=== PATIENT | female | born 1980 | race Caucasian/White ===

== ENCOUNTER 2016-12-03 12:18 | Inpatient (IN) | payer OTHER ==
[~2016-12-03] VITALS: Ht 162.6 cm; Wt 71.5 kg
[~2016-12-03 12:18] MED LIST: AMOX1TAB61 PO; AZIT250T PO; CIPR500T94 PO; CITA10TA4 PO; CITA40TA5 PO; DESO1TAB5 PO; DIVA500T2 PO; DIVA500T4 PO; METO5TAB PO; MULT-276 PO; ONDA4TAB10 SL; ONDA4TAB7 PO; PRED20TA PO; PROAIR HFA8.5 GM INH; PROM118S2 PO; ZOLP10TA PO
[2016-12-03 13:05] LABS: BILIRUBIN,URINE NEGATIVE (NEG); GLUCOSE,URINE NEGATIVE (NEG); NITRITE,URINE NEGATIVE (NEG); PH,URINE 6.5; PROTEIN,URINE 30 mg/dL (NEG-TRACE)
--- NOTE | 2016-12-03 13:14 | PHYS DOC ---
Past Medical History Past Medical History: Anxiety, Depression, Hypotension, Other Additional Past Medical Histor: CROHNS Past Surgical History: Appendectomy, Cholecystectomy, Tonsillectomy, Other Additional Past Surgical Histo: EGD; colonoscopy, Abdominal bypass, sinus Alcohol Use: Occasionally Drug Use: None Social History Narrative: DENIES MARIJUANA USE AT THIS TIME Adult General Chief Complaint Chief Complaint: FLANK PAIN HPI HPI 36-year-old female presents with significant left flank pain but also mild right flank pain that is worsened over the last 2-3 days. Patient states she is now urinating blood and has some dysuria type symptoms. She states fever and chills and had an episode of sweating last evening. She rates her pain very severe as a 10 out of 10 and worse in the left flank and also radiating to her left groin. Patient does state she has history of renal stones. She states 3-4 weeks ago she did have influenza but was appropriately treated with Tamiflu as well as some antibiotic therapy. She states her cough is still ongoing but is significantly improved. She denies any chest pain or shortness of breath. She reports nausea but no vomiting. Review of Systems Review of Systems Constitutional: Has fever, denies chills [] Eyes: Denies change in visual acuity, redness, or eye pain [] HENT: Denies nasal congestion or sore throat [] Respiratory: Denies cough or shortness of breath [] Cardiovascular: No additional information not addressed in HPI [] GI: Has abdominal pain, has nausea, has vomiting, denies bloody stools or diarrhea [] : Has dysuria, has hematuria [] Musculoskeletal: Denies back pain or joint pain [] Integument: Denies rash or skin lesions [] Neurologic: Denies headache, focal weakness or sensory changes [] Endocrine: Denies polyuria or polydipsia [] Current Medications Current Medications Current Medications Medications (Trade) Dose Ordered Sig/Adrianna Start Time Stop Time Status Last Admin Dose Admin Ceftriaxone Sodium 50 ml @ 100 mls/hr 1X ONCE 12/03/16 14:30 12/03/16 14:59 DC 12/03/16 14:12 100 MLS/HR Hydromorphone HCl (Dilaudid) 0.5 mg 1X ONCE 12/03/16 15:15 12/03/16 15:16 DC 12/03/16 15:19 0.5 MG Ondansetron HCl (Zofran) 4 mg 1X ONCE 12/03/16 13:15 12/03/16 13:16 DC 12/03/16 13:16 4 MG Ondansetron HCl 4 mg 4 mg 1X ONCE 12/03/16 14:15 12/03/16 14:16 DC 12/03/16 14:04 4 MG Promethazine HCl/ Sodium Chloride (Phenergan/Iv Sodium Chloride 0.9% 50ml) 50.5 ml @ 151.5 mls/ hr PRN Q6HRS PRN 12/03/16 15:00 12/03/16 15:20 151.5 MLS/HR Sodium Chloride (Iv Sodium Chloride 0.9% 1000ml Bag) 1,000 ml @ 1,000 mls/hr 1X ONCE 12/03/16 13:15 12/03/16 14:14 DC 12/03/16 13:15 1,000 MLS/HR Allergies Allergies Allergies Coded Allergies Type Severity Reaction Last Updated Verified erythromycin base Allergy Intermediate Nausea and Vomiting 12/22/14 Yes morphine Allergy Intermediate "rash" but tolerates hydromorphone 01/29/15 Yes Physical Exam Physical Exam Constitutional: Well developed, well nourished, no acute distress, non-toxic appearance. [] HENT: Normocephalic, atraumatic, bilateral external ears normal, oropharynx moist, no oral exudates, nose normal. [] Eyes: PERRLA, EOMI, conjunctiva normal, no discharge. [] Neck: Normal range of motion, no tenderness, supple, no stridor. [] Cardiovascular:Heart rate regular rhythm, no murmur [] Lungs & Thorax: Bilateral breath sounds clear to auscultation [] Abdomen: Bowel sounds normal, soft, mild LLQ tenderness, no masses, no pulsatile masses. [] Skin: Warm, dry, no erythema, no rash. [] Back: Mild right CVA tenderness, significant left CVA tenderness. [] Extremities: No tenderness, no cyanosis, no clubbing, ROM intact, no edema. [] Neurologic: Alert and oriented X 3, normal motor function, normal sensory function, no focal deficits noted. [] Psychologic: Affect normal, judgement normal, mood normal. [] Current Patient Data Vital Signs Vital Signs Date Time Temp Pulse Resp B/P Pulse Ox O2 Delivery O2 Flow Rate FiO2 2/15/17 15:19 18 99 Room Air 12/03/16 15:00 56 129/73 12/03/16 12:33 98.3 98.3 Lab Values Laboratory Tests Test 12/03/16 12:45 12/03/16 12:52 12/03/16 13:00 Urine Collection Type Unknown Urine Color Yellow Urine Clarity Cloudy Urine pH 6.5 Urine Specific [place] 1.025 Urine Protein 30mg/dL (NEG-TRACE) Urine Glucose (UA) Negativemg/dL (NEG) Urine Ketones (Stick) Negativemg/dL (NEG) Urine Blood Large (NEG) Urine Nitrite Negative (NEG) Urine Bilirubin Negative (NEG) Urine Urobilinogen Dipstick 1.0mg/dL (0.2 mg/dL) Urine Leukocyte Esterase Large (NEG) Urine RBC 11-20/HPF (0-2) Urine WBC >40/HPF (0-4) Urine Squamous Epithelial Cells Many/LPF Urine Bacteria Many/HPF (0-FEW) Urine Mucus Marked/LPF POC Urine HCG, Qualitative Hcg negative (Negative) White Blood Count 4.5x10^3/uL (4.0-11.0) Red Blood Count 4.54x10^6/uL (3.50-5.40) Hemoglobin 13.4g/dL (12.0-15.5) Hematocrit 40.0% (36.0-47.0) Mean Corpuscular Volume 88fL (79-100) Mean Corpuscular Hemoglobin 30pg (25-35) Mean Corpuscular Hemoglobin Concent 33g/dL (31-37) Red Cell Distribution Width 13.0% (11.5-14.5) Platelet Count 155x10^3/uL (140-400) Neutrophils (%) (Auto) 53% (31-73) Lymphocytes (%) (Auto) 34% (24-48) Monocytes (%) (Auto) 9% (0-9) Eosinophils (%) (Auto) 4% (0-3) H Basophils (%) (Auto) 1% (0-3) Neutrophils # (Auto) 2.4x10^3uL (1.8-7.7) Lymphocytes # (Auto) 1.5x10^3/uL (1.0-4.8) Monocytes # (Auto) 0.4x10^3/uL (0.0-1.1) Eosinophils # (Auto) 0.2x10^3/uL (0.0-0.7) Basophils # (Auto) 0.0x10^3/uL (0.0-0.2) Sodium Level 144mmol/L (136-145) Potassium Level 3.9mmol/L (3.5-5.1) Chloride Level 109mmol/L (98-107) H Carbon Dioxide Level 25mmol/L (21-32) Anion Gap 10 (6-14) Blood Urea Nitrogen 8mg/dL (7-20) Creatinine 0.9mg/dL (0.6-1.0) Estimated GFR (Cockcroft-Gault) 71.7 Glucose Level 93mg/dL (70-99) Calcium Level 8.6mg/dL (8.5-10.1) Laboratory Tests 12/03/16 13:00 Laboratory Tests 12/03/16 13:00 EKG EKG [] Radiology/Procedures Radiology/Procedures CT of the abdomen/pelvis without contrast demonstrates the following: Abdomen: Chest Base: Partially imaged without gross abnormality. Vessels: No abdominal aortic aneurysm. Liver/Biliary: Postcholecystectomy changes. Pancreas: No definite adjacent inflammation. Spleen: Normal. Kidneys/Adrenal: No hydronephrosis. 6 mm nonobstructive right renal stone. GI: No dilated loops of bowel to suggest obstruction. Postoperative changes right-side of colon. Pelvis: Bladder: Partially distended without gross abnormality. Small fat-containing umbilical hernia. Degenerative changes at lumbosacral junction with disc osteophyte complex. Course & Med Decision Making Course & Med Decision Making Pertinent Labs and Imaging studies reviewed. (See chart for details) This 36 yo old female with ongoing left greater than right flank pain will have IV and lab work drawn and will be given a dose of IV pain control as well as an IV fluid bolus. I will obtain a noncontrasted CT of her abdomen and pelvis to rule out any stone or obstructive uropathy. CT of her abdomen and pelvis without contrast did not demonstrate any acute abnormality. She does have a right renal stone. There is no evidence of any obstructive uropathy on the CT. Her renal function is intact today. Her urinalysis did show large amounts of leukocyte esterase for which I ordered IV Rocephin. Her symptoms are likely related to a pyelonephritis for which I will be prescribing antibiotic therapy as well as pain control and nausea control. A dose of IV Rocephin was ordered and administered. Multiple attempts at oral fluid challenge have failed and the patient will need to be admitted for IV antibiotic therapy for an ongoing acute pyelonephritis. I discussed the case with the hospitalist, Dr. Morse, who agreed to admit the patient for further evaluation and treatment. Dragon Disclaimer Dragon Disclaimer This electronic medical record was generated, in whole or in part, using a voice recognition dictation system. Departure Departure Impression: Primary Impression: Pyelonephritis Disposition: ADMITTED INPATIENT Admitting Physician: Yareli Morse Condition: STABLE Referrals: YARELI MORSE MD (PCP) Patient Instructions: Pyelonephritis, Adult, [id number] Additional Instructions: Please take your antibiotic as prescribed. Take your nausea and pain medications as needed. Continue to drink plenty of fluids. Return to the ER if you develop any worsening of your symptoms. Scripts Promethazine Hcl 12.5 Mg [id number] Mg PO Q6H PRN NAUSEA/VOMITING #14 TAB Prov:CHARITO HUMPHRIES DO 12/03/16 Hydrocodone/Apap 5-325 ([place] 5-325 Tablet)1 Each Tablet1 Tab PO PRN Q6HRS PRN PAIN #14 TAB Ref 0 Prov:CHARITO HUMPHRIES DO 12/03/16 Sulfamethoxazole/Trimethoprim (Bactrim Ds Tablet)1 Each Tablet1 Each PO BID #28 TAB Prov:CHARITO HUMPHRIES DO 12/03/16 Ondansetron Hcl (Zofran)4 Mg Tablet4 Mg PO BID PRN NAUSEA/VOMITING #14 TAB Prov:CHARITO HUMPHRIES DO 12/03/16 CHARITO HUMPHRIES DO Dec 03, 2016 13:14
[2016-12-03] MEDS ORDERED: IV NORMAL SALINE 1000ML BAG 1,000 ML IV ONE (13:15)
[2016-12-03] MEDS ORDERED: ONDANSETRON PF 4 MG/2 ML VIAL. IV ONE ×2 (13:15→14:15)
[2016-12-03] MEDS ORDERED: HYDROMORPHONE 2 MG/ML VIAL. IV ONE ×2 (13:15→15:15)
[2016-12-03 13:16] LABS: BACTERIA,URINE MANY /HPF (0-FEW); SQUAMOUS EPITHELIAL CELL,UR MANY /LPF; WBC,URINE >40 /HPF (0-4)
[2016-12-03 13:21] LABS: BASO % 1 % (0-3); EOS % 4 % (0-3); HEMOGLOBIN 13.4 g/dL (12.0-15.5); LYMPH # 1.5 x10^3/uL (1.0-4.8); LYMPH % 34 % (24-48); MEAN CORPUSCULAR HEMOGLOBIN 30 pg (25-35); MEAN CORPUSCULAR HGB CONC 33 g/dL (31-37); MEAN CORPUSCULAR VOLUME 88 fL (79-100); MONO % 9 % (0-9); NEUT % 53 % (31-73); PLATELET COUNT 155 x10^3/uL (140-400); RED BLOOD COUNT 4.54 x10^6/uL (3.50-5.40); WHITE BLOOD COUNT 4.5 x10^3/uL (4.0-11.0)
[2016-12-03 13:34] LABS: CALCIUM 8.6 mg/dL (8.5-10.1); CREATININE 0.9 mg/dL (0.6-1.0); GFR 71.7; POTASSIUM 3.9 mmol/L (3.5-5.1)
--- NOTE | 2016-12-03 14:16 | RAD ---
INDICATION: Left flank pain COMPARISON: 01/07/2016 TECHNIQUE: Axial CT images were obtained through the abdomen and pelvis without intravenous contrast. Coronal reformations were processed. FINDINGS: Abdomen: Chest Base: Partially imaged without gross abnormality. Vessels: No abdominal aortic aneurysm. Liver/Biliary: Postcholecystectomy changes. Pancreas: No definite adjacent inflammation. Spleen: Normal. Kidneys/Adrenal: No hydronephrosis. 6 mm nonobstructive right renal stone. GI: No dilated loops of bowel to suggest obstruction. Postoperative changes right-side of colon. Pelvis: Bladder: Partially distended without gross abnormality. Small fat-containing umbilical hernia. Degenerative changes at lumbosacral junction with disc osteophyte complex. IMPRESSION: 1. Right-sided renal stone without hydronephrosis. 2. No evidence of bowel obstruction. PQRS Compliance Statement: One or more of the following individualized dose reduction techniques were utilized for this examination: 1. Automated exposure control 2. Adjustment of the mA and/or kV according to patient size 3. Use of iterative reconstruction technique
[2016-12-03] MEDS ORDERED: CEFTRIAXONE 1GM IVPB FOR OMNI 50 ML IV ONE (14:30)
[2016-12-03] MEDS ORDERED: SULF1TAB24 PO (14:52)
[2016-12-03] MEDS ORDERED: HYDR-971 PO (14:52)
[2016-12-03] MEDS ORDERED: ONDA4TAB7 PO (14:52)
[2016-12-03] MEDS ORDERED: PROM12.56 PO (15:03)
[2016-12-03] MEDS: PROMETHAZINE 12.5 MG in IV NORMAL SALINE 50ML 50 ML IV PRN (15:20)
[2016-12-03] MEDS: IV NORMAL SALINE 1000ML BAG 1,000 ML IV SCH (17:18)
[2016-12-03] MEDS: ONDANSETRON PF 4 MG/2 ML VIAL. IV PRN ×3 (17:55→23:57)
[2016-12-03] MEDS: FENTANYL PF 100 MCG/2 ML VIAL. IV PRN ×2 (17:56→20:23)
[2016-12-03 19:00] VITALS: BP 115/59
--- NOTE | 2016-12-03 20:16 | ACF ---
Admission Forms Criteria PYELONEPHRITIS, ACUTE Clinical Indications for Admission to Inpatient Care (Place 'X' for any and all applicable criteria): Admission is indicated for ANY ONE of the following 1,2,3,4,5 [ ]I. Outpatient treatment has failed or is not feasible (eg, multidrug- resistant organism).5 [ ]II. beyond 24 weeks' gestation6 [ ]III. Hemodynamic instability [ ]IV. Immunocompromised state (eg, AIDS, diabetes, sickle cell disease) [X]V. Known renal or urologic abnormalities (eg, indwelling catheter, structural abnormalities, renal calculi, urinary stent, previous urologic surgery) [ ]. Condition that requires drainage procedure, including ANY ONE of the following: [ ]a) Urinary obstruction [ ]b) Pyelitis [ ]c) Pyonephrosis [ ]d) Renal or perinephric abscess [ ]e) Emphysematous pyelonephritis 7 [ ]VII. Inpatient admission required rather than observation care (Also use Pyelonephritis, Acute: Observation Care Criteria as appropriate) because of ANY ONE of the following: [ ]a) High fever or infection requiring inpatient admission as indicated by ANY ONE of [id number] [ ]A. Documented bacteremia [ ]B. Temp>104.9 [id number] (oral) [ ]C. Temp>103.10F (oral) or <96.80F (rectal) that does not respond to all emergency treatment [ ]b) Acute renal failure [ ]c) Other significant finding or clinical condition judged not to be within the scope of observation care [ ]d) IV fluid to replace significant ongoing (eg, for over 24hrs) losses (> 3 L/m2 per day) [ ]e) Other condition,treatment or monitoring requiring inpatient admission The original [facility] content created by [employer] has been revised. The portions of the content which have been revised are identified through the use of italic text or in bold, and [email or web address] has neither reviewed nor approved the modified material. All other unmodified content is copyright [email or web address]. Please see references footnoted in the original [facility] [employer] edition 2016 Admission Criteria Met?: Yes JONEL STEVENSON Dec 03, 2016 20:16
[2016-12-03 22:51] VITALS: BP 120/73
[2016-12-04] MEDS: FENTANYL PF 100 MCG/2 ML VIAL. IV PRN ×2 (00:02→04:17)
[2016-12-04] MEDS: PROMETHAZINE 12.5 MG in IV NORMAL SALINE 50ML 50 ML IV PRN (01:29)
[2016-12-04 03:00] VITALS: BP 107/58
[2016-12-04] MEDS: IV NORMAL SALINE 1000ML BAG 1,000 ML IV SCH (04:19)
[2016-12-04 05:55] LABS: CALCIUM 8.6 mg/dL (8.5-10.1); CREATININE 0.8 mg/dL (0.6-1.0); GFR 82.1; POTASSIUM 3.5 mmol/L (3.5-5.1)
[2016-12-04 06:05] LABS: BASO % 0 % (0-3); EOS % 5 % (0-3); HEMATOCRIT 36.6 % (36.0-47.0); HEMOGLOBIN 12.4 g/dL (12.0-15.5); LYMPH # 2.8 x10^3/uL (1.0-4.8); LYMPH % 47 % (24-48); MEAN CORPUSCULAR HEMOGLOBIN 30 pg (25-35); MEAN CORPUSCULAR HGB CONC 34 g/dL (31-37); MEAN CORPUSCULAR VOLUME 89 fL (79-100); MONO % 8 % (0-9); NEUT % 41 % (31-73); PLATELET COUNT 124 x10^3/uL (140-400); RED BLOOD COUNT 4.11 x10^6/uL (3.50-5.40); WHITE BLOOD COUNT 6.1 x10^3/uL (4.0-11.0)
[2016-12-04 07:30] VITALS: BP 108/46
[2016-12-04] MEDS ORDERED: HYDROCODONE/APAP 5/325MG TABLET. PO PRN ×2 (07:30→23:15)
[2016-12-04] MEDS ORDERED: PROMETHAZINE 12.5 MG in IV NORMAL SALINE 50ML 50 ML IV PRN (07:30)
[2016-12-04] MEDS ORDERED: FENTANYL PF 100 MCG/2 ML VIAL. IV PRN (07:30)
[2016-12-04] MEDS ORDERED: HYDROXYZINE PAMOATE 25 MG CAPSULE PO PRN (07:30)
[2016-12-04] MEDS ORDERED: IV NORMAL SALINE 1000ML BAG 1,000 ML IV ONE (07:30)
[2016-12-04] MEDS ORDERED: NON FORMULARY ITEM (Albuterol Sulfate (Proair Hfa Inhaler) 1 PUFF) INH PRN (07:30)
--- NOTE | 2016-12-04 07:59 | PDOC ---
Provider Note Provider Note See admission H&P dictation #[id number] Impression: 1. Left pyelonephritis: 2. Intractable nausea and vomiting: YARELI MORSE MD Dec 04, 2016 07:59
[2016-12-04] MEDS ORDERED: INFLUENZA VAX SCREEN BY RX. MC PRN (08:30)
[2016-12-04] MEDS ORDERED: ALBUTEROL SULFATE 2.5 MG/3 ML NEBU. NEB PRN (08:45)
[2016-12-04] MEDS ORDERED: FLU VACC QUAD 2016-17 (36MOS+)/PF 0.5 ML SYRINGE. VAX IM ONE (09:00)
[2016-12-04 09:42] LABS: PLT ESTIMATE ADEQUATE (ADEQUATE)
[2016-12-04] MEDS: ONDANSETRON PF 4 MG/2 ML VIAL. IV PRN ×2 (10:48→17:29)
[2016-12-04] MEDS: HYDROMORPHONE 2 MG/ML VIAL. IV PRN ×3 (10:49→17:47)
[2016-12-04] MEDS: FLUOXETINE HCL 20 MG CAPSULE PO SCH (10:54)
[2016-12-04 11:18] VITALS: BP 113/69
[2016-12-04 15:04] VITALS: BP 118/78
[2016-12-04] MEDS: CEFTRIAXONE SODIUM 1 GM in IV NORMAL SALINE 50ML 50 ML IV SCH (17:39)
--- NOTE | 2016-12-04 18:42 | EKG ---
[facility] [address] [place] [address] Test Date: 2016-12-04 Test Time: 18:36:01 Pat Name: LEXX LUNA Department: Room: [facility] Gender: F Industrial Automation Engineer: : 1980 Requested By: YARELI MORSE Order Number: [id number] Reading MD: Measurements Intervals [place] Rate: 57 P: 58 [place]: 130 QRS: 88 QRSD: 90 T: 62 QT: 452 QTc: 443 Interpretive Statements SINUS RHYTHM QRS(T) CONTOUR ABNORMALITY CONSIDER ANTEROSEPTAL MYOCARDIAL DAMAGE POSSIBLY ABNORMAL ECG RI6.01 Unconfirmed report Compared to ECG 05/15/2016 17:43:42 No significant changes
[2016-12-04] MEDS ORDERED: ACETAMINOPHEN 325 MG TABLET. PO PRN (19:00)
[2016-12-04 19:59] VITALS: BP 117/60
[2016-12-04] MEDS ORDERED: NITROGLYCERIN SUBLINGUAL 0.4 MG BOTTLE OF 25. SL PRN (23:15)
[2016-12-04 23:28] VITALS: BP 159/79
[2016-12-04] MEDS ORDERED: ASPIRIN 81 MG TAB.CHEW PO ONE (23:45)
[2016-12-04 23:56] LABS: CKMB MASS < 0.5 ng/mL (0.0-3.6); CREATINE KINASE 64 U/L (26-192)
[2016-12-05] VITALS (10 sets, daily range): BP systolic 92–135; BP diastolic 54–81
[2016-12-05] MEDS: FENTANYL PF 100 MCG/2 ML VIAL. IV PRN ×6 (01:09→22:26)
[2016-12-05] MEDS: ZOLPIDEM 5 MG TABLET. PO PRN ×2 (01:10→22:24)
[2016-12-05 05:41] LABS: CKMB MASS < 0.5 ng/mL (0.0-3.6); CREATINE KINASE 57 U/L (26-192)
--- NOTE | 2016-12-05 08:20 | PDOC ---
SUBJECTIVE Subjective Episode of left upper chest pain last night. Did have a little bit of shortness of breath with that as well. No lightheadedness. No palpitations. Was noted to be bradycardic as well. Has not had any episodes like this in the past. Not having as much emesis. Was able to tolerate mashed potatoes last night. Still had blood in her urine this morning but it had cleared up some last night. Still having left flank and abdominal pain. OBJECTIVE Vital Signs Vital Signs Date Time Temp Pulse Resp B/P Pulse Ox O2 Delivery O2 Flow Rate FiO2 12/05/16 07:19 98.4 57 18 92/55 97 Nasal Cannula 2.0 98.4 12/05/16 05:40 16 12/05/16 05:10 18 99 Nasal Cannula 2.0 12/05/16 05:00 98.5 62 20 109/54 99 Nasal Cannula 2.0 98.5 12/05/16 03:00 52 12/05/16 01:39 99 Nasal Cannula 2.0 12/05/16 01:09 18 12/05/16 01:00 52 117/64 12/05/16 00:27 56 109/62 12/05/16 00:20 53 118/69 12/05/16 00:00 118/69 12/04/16 23:28 99.0 58 18 159/79 96 Room Air 99.0 12/04/16 20:00 Room Air 12/04/16 19:59 99.0 46 18 117/60 96 Room Air 99.0 12/04/16 17:47 18 97 Room Air 12/04/16 15:04 98.8 65 18 118/78 97 Room Air 98.8 12/04/16 14:42 20 96 Room Air 12/04/16 13:57 20 96 Room Air 12/04/16 12:57 18 96 Room Air 12/04/16 11:19 20 96 Room Air 12/04/16 11:18 98.1 54 18 113/69 96 Room Air 98.1 12/04/16 10:49 20 99 Room Air I & O Intake and Output 12/05/16 07:00 Intake Total 1190 ml Balance 1190 ml Intake Oral 720 ml IV Total 470 ml # Voids 4 PHYSICAL EXAM Physical Exam General: No acute distress. Laying in bed. Mental status: Alert and oriented Chest: Air movement: good. Auscultation: clear throughout. Some tenderness to palpation in left upper chest and the posterior chest. Cardiovascular: Rate: Bradycardic. Rhythm: regular. Murmur: none. Abdomen: Bowel sounds: normal. Soft. Nondistended. Tenderness: Mild tenderness mostly on the left and in the left upper quadrant. No guarding. No rebound. Extremities: No lower extremity edema. Back: There is tenderness to palpation in the left CVA area. ASSESSMENT/PLAN Assessment/Plan 1. Left pyelonephritis: Having some improvement. Continue antibiotics with Rocephin for now. Urine culture pending. Adjust based on culture and sensitivity. 2. Intractable nausea and vomiting: Improving some. Her chest pain may be a result of some of her frequent vomiting with some esophagitis. 3. Chest pain: Multiple possible etiologies including GI versus musculoskeletal she does have some reproducible pain with palpation of the anterior chest wall. We'll consult cardiology. First 2 enzymes are negative. Obtain echocardiogram to rule out any pericarditis or pericardial fluid. 4. Recent influenza infection approximately 2 weeks ago: Could be contributing to the above symptoms. Problems: COMMENT Lab Laboratory Tests Test 12/04/16 23:20 12/05/16 04:56 Creatine Kinase 64U/L (26-192) 57U/L (26-192) Creatine Kinase MB (Mass) < 0.5ng/mL (0.0-3.6) < 0.5ng/mL (0.0-3.6) Creatine Kinase MB Relative Index % (0-4) % (0-4) Troponin I Quantitative < 0.017ng/mL (0.000-0.055) < 0.017ng/mL (0.000-0.055) YARELI MORSE MD Dec 05, 2016 08:20
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
--- NOTE | 2016-12-05 09:29 | HP ---
ADMIT DATE: 12/04/2016 ATTENDING PHYSICIAN: Dr. Yareli Morse. CHIEF COMPLAINT: Left flank pain and hematuria. HISTORY OF PRESENT ILLNESS: The patient is a 36-year-old female who has a history of kidney stones, but was noted to have the onset on December 01 of pain in her left kidney area about every 10 to 15 seconds intermittently. The pain was described as sharp and electrical. The pain did get somewhat better, although she did have a decreased appetite. She was having some improvement in her symptoms, but then in the evening it became worse and she was breaking out in sweats and chills, but did not have a definite fever. She did have the onset of nausea and emesis on December 02. With one of her episodes of emesis, she did bite her right tongue. On the morning of December 03, she had the onset of gross blood in her urine. She had had a couple of days of urinary frequency and urgency. There was some dysuria as well on the day before the hematuria. She had started using Azo for that. She had progressive pain in her left flank and the combination of the pain and the hematuria caused her to come to the Emergency Room for further evaluation. She denies any specific fevers. Of note, the patient did have influenza a couple of weeks ago. She was treated with a Z-YANNICK for cough and sputum production after her influenza. She still has minimal cough. PAST MEDICAL HISTORY: Significant for history of peptic ulcer disease, bipolar disorder, anxiety and depression, kidney stones, possible inflammatory bowel disease, although that has not been proven by biopsy. PAST SURGICAL HISTORY: Tonsillectomy, cholecystectomy, appendectomy. 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 ALLERGIES TO MEDICATIONS: MORPHINE AND ERYTHROMYCIN CAUSE GI UPSET. SOCIAL HISTORY: She does not smoke. She occasionally drinks alcohol. She occasionally uses marijuana, but does not use that nearly as often as she used to. She denies any other illicit drug use. She lives at home with her child. FAMILY HISTORY: Noncontributory. MEDICATIONS: At the time of admission, Prozac 40 mg p.o. daily, hydroxyzine 50 to 75 mg p.o. at bedtime p.r.n., oral contraceptive pill for which she has missed a couple of doses. REVIEW OF SYSTEMS: The patient denies any measured temperature, although she has had subjective fevers and chills. She has been swallowing without any difficulty. She has had a headache in the last day or so. She has had still minimal cough that is nonproductive. She denies any chest pain or palpitations. She denies any hematemesis, hematochezia, or diarrhea. She has had urinary frequency and urgency. She denies any lower extremity swelling. She denies any rashes. She has diffuse pain through her back. Her last menstrual period was at the beginning of November. PHYSICAL EXAMINATION: VITAL SIGNS: At time of admission, temperature 98.3, pulse 63, respiratory rate 18, blood pressure 143/63, O2 sat 96% on room air. GENERAL: The patient is a well-developed, well-nourished female, in no acute distress. She is alert and oriented. She is lying in bed. She is mildly ill appearing. HEENT: The pupils are equal and round. The extraocular motions are intact. The sclerae are anicteric. The oropharynx is slightly tacky, dry. NECK: Without JVD or bruit. CHEST: Clear to auscultation bilaterally, with good air movement throughout. No wheezes or rales. CARDIOVASCULAR: The heart has a regular rate and rhythm without murmur. ABDOMEN: Positive bowel sounds, soft, nondistended. There is some tenderness primarily in the left abdomen without any guarding or rebound. BACK: There is tenderness in the left CVA area. There is also some tenderness in the left posterior chest wall and in the left lower back to palpation. There is no deformity. EXTREMITIES: There is no edema or cyanosis. PSYCHIATRIC: Mood and affect appear appropriate. NEUROLOGIC: Grossly intact and nonfocal. LABORATORY DATA: At the time of admission, WBC 4.5, hemoglobin 13.4, hematocrit 40.0, platelets 155. UA shows specific gravity 1.025, protein 30, large blood, large leukocyte esterase, 11-20 rbc's, greater than 40 wbc's, many epithelial cells, many bacteria, marked mucus. HCG was negative. Sodium 144, potassium 3.9, chloride 109, CO2 of 25, BUN 8, creatinine 0.8, glucose 93. CT of the abdomen and pelvis showed a right renal stone without any evidence of hydronephrosis. There is no other abnormality except for a small fat-containing umbilical hernia. There are degenerative changes at the lumbosacral junction with disk osteophyte complex. There are no dilated bowel loops to suggest obstruction. There are postoperative changes on the right side of the colon. IMPRESSION: 1. Left pyelonephritis. 2. Intractable nausea and vomiting. PLAN: The patient was admitted. She was placed on Rocephin empirically initially. We will await urine cultures. We will give her IV fluids. We will replace her potassium through the IV. We will bolus her with normal saline as well. We will advance her diet slowly and see how she does with that. Anticipate discharge home when she is able to tolerate p.o. and we can transition her to an oral antibiotic as well as have her pain under control. YARELI MORSE MD DR: JOHNNIE/kayla JOB#: [id number] / [id number] MERRILL
[2016-12-05 10:16] LABS: CALCIUM 8.1 mg/dL (8.5-10.1); CREATININE 0.7 mg/dL (0.6-1.0); GFR 95.8; MAGNESIUM 1.9 mg/dL (1.8-2.4); POTASSIUM 3.7 mmol/L (3.5-5.1)
[2016-12-05] MEDS: ONDANSETRON PF 4 MG/2 ML VIAL. IV PRN (11:20)
[2016-12-05] MEDS: ASPIRIN 81 MG TAB.CHEW PO SCH (11:27)
[2016-12-05] MEDS: FLUOXETINE HCL 20 MG CAPSULE PO SCH (11:28)
[2016-12-05 11:32] LABS: CKMB MASS < 0.5 ng/mL (0.0-3.6); CREATINE KINASE 50 U/L (26-192)
--- NOTE | 2016-12-05 12:23 | CARD ---
APPROVED REPORT EXAM: Two-dimensional and M-mode echocardiogram with Doppler and color Doppler. Other Information Quality : Good INDICATION Bradycardia 2D DIMENSIONS RVDd2.6 (2.9-3.5cm)Left Atrium(2D)3.0 (1.6-4.0cm) IVSd0.8 (0.7-1.1cm)Aortic Root(2D)2.8 (2.0-3.7cm) LVDd4.8 (3.9-5.9cm)LVOT Diameter2.0 (1.8-2.4cm) PWd0.9 (0.7-1.1cm)LVDs3.1 (2.5-4.0cm) FS (%) 30.0 %SV71.8 ml LVEF(%)60.0 (>50%) Aortic Valve AoV Peak Rafiq.151.6cm/sAoV VTI30.0cm AO Peak GR.9.2mmHgLVOT VTI 24.10cm AO Mean GR.4mmHgAVA (VTI)2.50cm2 Mitral Valve MV E Zupyeyak72.2cm/sMV DECEL [id number] MV A Qanjwjbw90.1cm/sE/A Ratio1.8 Tricuspid Valve TR P. Lqdrohkf060vp/sRAP HKFZVKGG9gqFz TR Peak Gr.47urSvVIFN23ytLp LEFT VENTRICLE The left ventricle is normal size. There is normal left ventricular wall thickness. The left ventricu lar systolic function is normal and the ejection fraction is within normal range. The Ejection Fracti on is 55-60%. There is normal LV segmental wall motion. Transmitral Doppler flow pattern is normal fo r age. RIGHT VENTRICLE The right ventricle is normal size. The right ventricular systolic function is normal. ATRIA The left atrium size is normal. The right atrium size is normal. The interatrial septum is intact wit h no evidence for an atrial septal defect or patent foramen ovale as noted on 2-D or Doppler imaging. AORTIC VALVE The aortic valve is calcified but opens well. Doppler and Color Flow revealed no significant aortic r egurgitation. There is no significant aortic valvular stenosis. MITRAL VALVE The mitral valve is redundant. There is no evidence of mitral valve prolapse. There is no mitral valv e stenosis. Doppler and Color-flow revealed trace mitral regurgitation. TRICUSPID VALVE The tricuspid valve is normal in structure and function. Doppler and Color Flow revealed mild tricusp id regurgitation. The PA pressure was estimated at 27 mmHg. There is no tricuspid valve stenosis. PULMONIC VALVE The pulmonary valve is normal in structure and function. Doppler and Color Flow revealed trace pulmon ic valvular regurgitation. There is no pulmonic valvular stenosis. GREAT VESSELS The aortic root is normal in size. The ascending aorta is normal in size. The IVC is normal in size a nd collapses >50% with inspiration. PERICARDIAL EFFUSION There is no evidence of significant pericardial effusion. Critical Notification Critical Value: No <Conclusion> The left ventricle is normal size. The left ventricular systolic function is normal and the ejection fraction is within normal range. The Ejection Fraction is 55-60%. There is no significant aortic valvular stenosis. Doppler and Color Flow revealed no significant aortic regurgitation. Doppler and Color-flow revealed trace mitral regurgitation. Doppler and Color Flow revealed mild tricuspid regurgitation. The PA pressure was estimated at 27 mmHg.
[2016-12-05] MEDS ORDERED: SUMATRIPTAN SUCCINATE 100 MG TABLET. PO ONE (14:15)
[2016-12-05] MEDS ORDERED: IBUPROFEN 600 MG TABLET. PO PRN (14:15)
[2016-12-05] MEDS ORDERED: HYDROMORPHONE 2 MG/ML VIAL. IV PRN (14:15)
[2016-12-05] MEDS: PANTOPRAZOLE 40 MG TABLET. PO SCH (15:09)
[2016-12-05] MEDS: CEFTRIAXONE SODIUM 1 GM in IV NORMAL SALINE 50ML 50 ML IV SCH (15:09)
[2016-12-05] MEDS: HYDROCODONE/APAP 5/325MG TABLET. PO PRN (16:14)
[2016-12-06 02:57] VITALS: BP 104/55
[2016-12-06] MEDS: FENTANYL PF 100 MCG/2 ML VIAL. IV PRN ×3 (02:59→08:56)
[2016-12-06 07:40] VITALS: BP 104/57
[2016-12-06] MEDS: FLUOXETINE HCL 20 MG CAPSULE PO SCH (08:55)
[2016-12-06] MEDS: ASPIRIN 81 MG TAB.CHEW PO SCH (08:55)
[2016-12-06] MEDS: PANTOPRAZOLE 40 MG TABLET. PO SCH (08:55)
[2016-12-06 11:07] VITALS: BP 111/59
[2016-12-06] MEDS ORDERED: FLUO20CA8 PO (12:04)
[2016-12-06] MEDS ORDERED: CIPR500T94 PO (12:04)
[2016-12-06] MEDS ORDERED: IBUP-1007 PO (12:04)
[2016-12-06] MEDS: HYDROCODONE/APAP 5/325MG TABLET. PO PRN (12:05)
--- NOTE | 2016-12-06 12:13 | PDOC3 ---
Discharge Summary* Date of Admission: Dec 03, 2016 Date of Discharge: Dec 06, 2016 Admitting Diagnosis Problems Medical Problems: (1) Pyelonephritis Status: Acute Final Diagnosis Pyelonephritis, Intra-renal kidney stone right side CONSULTS Cardiology Procedures CT Abdomen- right sided renal stone without obstruction ECHO- LVEF 55-60% Brief Hospital Course DISCHARGE PHYSICAL EXAM General: No acute distress. Laying in bed. AOx3. Appears pale Chest: Air movement: good. Auscultation: clear throughout, regular breathing rate and effort Cardiovascular: Rate: Bradycardic. Rhythm: regular. Murmur: none. Abdomen: Bowel sounds: normal. Soft. Nondistended. Tenderness: Mild tenderness mostly on the left and in the left upper quadrant. No guarding. No rebound. Extremities: No lower extremity edema. Back: There is tenderness to palpation in the left CVA area. Pt is a 36yo CF admitted for pyelonephritis 1. Left pyelonephritis: Pt was receiving Rocephin during hospitalization. Culture showed mixed chavez; will discharge on Levaquin. Pt was also discharged on Hydrocodone/APAP 5/325mg for pain as needed 2. Right renal stone 3. Intractable nausea and vomiting: Improved 4. Chest pain: Non cardiac, resolved. Normal ECHO, normal cardiac enzymes 5. Recent influenza infection approximately 2 weeks ago: Could be contributing to the above symptoms. Disposition/Orders: D/C to Home CONDITION AT DISCHARGE: Improved, Stable Diet: Regular Scheduled Ciprofloxacin Hcl (Cipro) 500 MG PO BID Desog-Et Estra/Ethin Estra (Kariva 28 Day Tablet) 1 TAB PO DAILY (Reported) Fluoxetine Hcl (Fluoxetine Hcl) 40 MG PO DAILY Metoclopramide Hcl (Metoclopramide Hcl) 5 MG PO QIDACHS Ondansetron Hcl (Zofran) 1 TAB PO Q6HRS (Reported) Scheduled PRN Albuterol Sulfate (Proair Hfa Inhaler) 1 PUFF INH Q4HRS PRN PRN SHORTNESS OF BREATH Hydrocodone/Apap 5-325 ([place] 5-325 Tablet) 1 TAB PO PRN Q6HRS PRN PRN PAIN Ibuprofen (Ibuprofen) 600 MG PO PRN Q6HRS PRN PRN INFLAMMATION Ondansetron (Zofran Odt) 1 TAB SL Q6HRS PRN PRN NAUSEA Discontinued Medications Azithromycin (Zithromax) 1 PKG PO UD Azithromycin (Zithromax) 1 PKG PO UD Ondansetron Hcl (Zofran) 4 MG PO BID PRN PRN NAUSEA/VOMITING Prednisone (Prednisone) 40 MG PO DAILY Promethazine Hcl (Promethazine Hcl) 12.5 MG PO Q6H PRN PRN NAUSEA/VOMITING Promethazine Hcl/Codeine (Promethazine-Codeine Syrup) 5 ML PO Q4-6HRS PRN PRN COUGH Sulfamethoxazole/Trimethoprim (Bactrim Ds Tablet) 1 EACH PO BID PCP Pt is planning on scheduling f/u with Dr. Cerrato this coming Thursday. Time Spent Total time spent with patient [] minutes for coordination of care, counseling, and education. KELLY KELLY MD Dec 06, 2016 12:13
== END 2016-12-06 17:12 | disposition home or self-care (01) | DRG 694 ==
LOC: ER 12:18 → ED HOLD 15:44 → 5 NORTH 18:30 → 2 NORTH 12-05 00:09
PROVIDERS: ADMIT Family Medicine; ATTEND Family Medicine
DX: N20.0 Calculus of kidney (principal); K50.90 Crohn's disease, unspecified, without complications; F12.90 Cannabis use, unspecified, uncomplicated; F31.9 Bipolar disorder, unspecified; K21.0 Gastro-esophageal reflux disease with esophagitis; K31.84 Gastroparesis; Z90.49 Acquired absence of other specified parts of digestive tract; Z79.899 Other long term (current) drug therapy; Z88.5 Allergy status to narcotic agent; Z88.8 Allergy status to other drugs, medicaments and biological substances; R31.0 Gross hematuria; Z87.442 Personal history of urinary calculi
CPT/HCPCS: 36415; 74176; 80048; 81001; 81025; 82553; 83735; 84443; 84484; 85007; 85027; 87086; 90686; 93005; 93306; 94250; 94760; 96361; 96365; 96375; 96376; J0690; J0696; J1170; J2405; J2550; J3010; J7030; 99285-25

== ENCOUNTER 2017-03-18 10:13 | Emergency (ER) | payer OTHER ==
[~2017-03-18 10:13] MED LIST changes: +FLUO20CA8 PO; +HYDR-971 PO; +IBUP-1007 PO; +PROM12.56 PO; +SULF1TAB24 PO
== END 2017-03-18 11:22 | disposition left against medical advice (07) ==
LOC: ER 10:13
DX: R05 Cough (principal); Z88.1 Allergy status to other antibiotic agents; Z88.5 Allergy status to narcotic agent; Z53.21 Procedure and treatment not carried out due to patient leaving prior to being seen by health care provider

== ENCOUNTER 2017-09-10 20:02 | Emergency (ER) | payer SELFPAY ==
[~2017-09-10] VITALS: Ht 162.6 cm; Wt 62.6 kg
--- NOTE | 2017-09-10 20:09 | PHYS DOC ---
Past Medical History Past Medical History: Anxiety, Depression, Hypotension, Other Additional Past Medical Histor: CROHNS Past Surgical History: Appendectomy, Cholecystectomy, Tonsillectomy, Other Additional Past Surgical Histo: EGD; colonoscopy, Abdominal bypass, sinus Alcohol Use: Occasionally Drug Use: None Adult General Chief Complaint Chief Complaint: NEAR SYNCOPE HPI HPI Patient is a 36 year old female presenting to the emergency department for evaluation of multiple symptoms including cough congestion fevers chills nausea vomiting joint pain generalized myalgias. Symptoms have been going on for approximately 3 days and she has been trying to drink plenty of fluids and take ibuprofen but she says that she has been having vomiting and she feels quite dehydrated. She says that she can't stand up for more than 10 minutes that she starts to get dizzy and lightheaded and feels as if she is going to pass out. Patient is in no obvious distress with normal vital signs. Review of Systems Review of Systems Constitutional: + fever, chills [] HENT: + nasal congestion. No sore throat [] Respiratory: Denies cough or shortness of breath [] Cardiovascular: No additional information not addressed in HPI [] GI: + abdominal pain, nausea, vomiting : Denies dysuria or hematuria [] Musculoskeletal: + back pain, joint pain [] Integument: Denies rash or skin lesions [] Neurologic: + headache. No focal weakness or sensory changes [] All other systems were reviewed and found to be within normal limits, except as documented in this note. Current Medications Current Medications Current Medications Medications (Trade) Dose Ordered Sig/Adrianna Start Time Stop Time Status Last Admin Dose Admin Acetaminophen/ Hydrocodone Bitart (Lortab 5/325) 2 tab 1X ONCE 09/10/17 20:45 09/10/17 20:46 DC 09/10/17 21:11 2 TAB Albuterol/ Ipratropium (Duoneb) 3 ml 1X ONCE 09/10/17 20:45 09/10/17 20:46 DC 09/10/17 21:20 3 ML Dexamethasone Sodium Phosphate (Decadron) 8 mg 1X ONCE 09/10/17 20:45 09/10/17 20:46 DC 09/10/17 21:04 8 MG Fentanyl Citrate (Fentanyl 2ml Vial) 75 mcg 1X ONCE 09/10/17 23:00 09/10/17 23:01 DC 09/10/17 22:45 75 MCG Ketorolac Tromethamine (Toradol) 15 mg 1X ONCE 09/10/17 20:45 09/10/17 20:46 DC 09/10/17 21:08 15 MG Magnesium Oxide (Magnesium Oxide) 800 mg 1X ONCE 09/10/17 21:30 09/10/17 21:31 DC 09/10/17 21:44 800 MG Ondansetron HCl (Zofran) 8 mg 1X ONCE 09/10/17 20:45 09/10/17 20:46 DC 09/10/17 21:03 8 MG Sodium Chloride 500 ml @ 500 mls/hr 1X ONCE 09/10/17 22:30 09/10/17 23:29 09/10/17 22:40 500 MLS/HR Allergies Allergies Allergies Coded Allergies Type Severity Reaction Last Updated Verified erythromycin base Allergy Intermediate Nausea and Vomiting 12/22/14 Yes morphine Allergy Intermediate "rash" but tolerates hydromorphone 01/29/15 Yes Physical Exam Physical Exam Constitutional: Well developed, well nourished, no acute distress, non-toxic appearance. [] HENT: Normocephalic, atraumatic, bilateral external ears normal, oropharynx moist, no oral exudates, nose normal. [] Eyes: PERRLA, EOMI, conjunctiva normal, no discharge. [] Neck: Normal range of motion, no tenderness, supple, no stridor. [] Cardiovascular:Heart rate regular rhythm, no murmur [] Lungs & Thorax: Bilateral breath sounds clear to auscultation [] Abdomen: Bowel sounds normal, soft, no tenderness, no masses, no pulsatile masses. [] Skin: Warm, dry, no erythema, no rash. [] Back: No tenderness, no CVA tenderness. [] Extremities: No tenderness, no cyanosis, no clubbing, ROM intact, no edema. [] Neurologic: Alert and oriented X 3, normal motor function, normal sensory function, no focal deficits noted. [] Current Patient Data Vital Signs Vital Signs Date Time Temp Pulse Resp B/P (MAP) Pulse Ox O2 Delivery O2 Flow Rate FiO2 09/10/17 22:45 17 97 Room Air 09/10/17 20:10 98.5 77 112/66 (81) 98.5 Lab Values Laboratory Tests Test 09/10/17 20:10 09/10/17 20:30 09/10/17 20:37 09/10/17 21:47 Urine Collection Type Void Urine Color Yellow Urine Clarity Clear Urine pH 6.0 Urine Specific Chancellor 1.015 Urine Protein Negative mg/dL (NEG-TRACE) Urine Glucose (UA) Negative mg/dL (NEG) Urine Ketones (Stick) Negative mg/dL (NEG) Urine Blood Large (NEG) Urine Nitrite Negative (NEG) Urine Bilirubin Negative (NEG) Urine Urobilinogen Dipstick 0.2 mg/dL (0.2 mg/dL) Urine Leukocyte Esterase Small (NEG) Urine RBC 11-20 /HPF (0-2) Urine WBC 1-4 /HPF (0-4) Urine Squamous Epithelial Cells Many /LPF Urine Bacteria Few /HPF (0-FEW) Urine Mucus Mod /LPF White Blood Count 3.9 x10^3/uL (4.0-11.0) L Red Blood Count 4.42 x10^6/uL (3.50-5.40) Hemoglobin 13.7 g/dL (12.0-15.5) Hematocrit 40.1 % (36.0-47.0) Mean Corpuscular Volume 91 fL (79-100) Mean Corpuscular Hemoglobin 31 pg (25-35) Mean Corpuscular Hemoglobin Concent 34 g/dL (31-37) Red Cell Distribution Width 13.0 % (11.5-14.5) Platelet Count 136 x10^3/uL (140-400) L Neutrophils (%) (Auto) 48 % (31-73) Lymphocytes (%) (Auto) 34 % (24-48) Monocytes (%) (Auto) 14 % (0-9) H Eosinophils (%) (Auto) 4 % (0-3) H Basophils (%) (Auto) 1 % (0-3) Neutrophils # (Auto) 1.8 x10^3uL (1.8-7.7) Lymphocytes # (Auto) 1.3 x10^3/uL (1.0-4.8) Monocytes # (Auto) 0.6 x10^3/uL (0.0-1.1) Eosinophils # (Auto) 0.2 x10^3/uL (0.0-0.7) Basophils # (Auto) 0.0 x10^3/uL (0.0-0.2) Sodium Level 141 mmol/L (136-145) Potassium Level 3.6 mmol/L (3.5-5.1) Chloride Level 106 mmol/L (98-107) Carbon Dioxide Level 28 mmol/L (21-32) Anion Gap 7 (6-14) Blood Urea Nitrogen 11 mg/dL (7-20) Creatinine 0.9 mg/dL (0.6-1.0) Estimated GFR (Cockcroft-Gault) 71.7 BUN/Creatinine Ratio 12 (6-20) Glucose Level 89 mg/dL (70-99) Calcium Level 8.4 mg/dL (8.5-10.1) L Magnesium Level 1.6 mg/dL (1.8-2.4) L Total Bilirubin 0.2 mg/dL (0.2-1.0) Aspartate Amino Transferase (AST) 15 U/L (15-37) Alanine Aminotransferase (ALT) 20 U/L (14-59) Alkaline Phosphatase 46 U/L (46-116) Creatine Kinase 107 U/L (26-192) Total Protein 6.8 g/dL (6.4-8.2) Albumin 3.4 g/dL (3.4-5.0) Albumin/Globulin Ratio 1.0 (1.0-1.7) Lipase 129 U/L (73-393) POC Urine HCG, Qualitative Hcg negative (Negative) Influenza Type A Antigen Negative (NEGATIVE) Influenza Type B Antigen Negative (NEGATIVE) Laboratory Tests 09/10/17 20:30 Laboratory Tests 09/10/17 20:30 EKG EKG [] Radiology/Procedures Radiology/Procedures Chest x-ray shows normal mediastinum and normal heart size no obvious free air pneumothorax or opacity and abdominal x-ray shows constipation with no signs of obstruction. Course & Med Decision Making Course & Med Decision Making Patient presenting to the emergency department for evaluation of multiple symptoms most likely consistent with a viral syndrome. Patient was given IV fluids and multiple medications and she admits that she feels better however she still has diffuse myalgias and arthralgias. Her workup is rather unremarkable and she has normal vital signs I do not see any reason for inpatient treatment so she'll be discharged in stable condition told to follow with a primary care provider within 3-4 days and come back to the ED sooner with worsening pain fevers vomiting or other general concerns. Patient aware and agreeable with plan and verbalized understanding of the above instructions. Dragon Disclaimer Dragon Disclaimer This electronic medical record was generated, in whole or in part, using a voice recognition dictation system. Departure Departure Impression: Primary Impression: Viral syndrome Additional Impressions: Bronchitis Dehydration Disposition: 01 HOME, SELF-CARE Condition: STABLE Referrals: YARELI MORSE MD (PCP) Patient Instructions: Viral Syndrome Additional Instructions: DRINK PLENTY OF FLUIDS INCLUDING WATER AND GATORADE. TAKE 400MG OF IBUPROFEN EVERY 6 HOURS AND THE PERCOCET FOR BREAKTHROUGH PAIN. USE NASONEX FOR ANY SINUS CONGESTION. FOLLOW WITH YOUR PCP NEXT WEEK TO ENSURE IMPROVEMENT AND COME BACK TO THE ED SOONER WITH ANY NEW OR WORSENING SYMPTOMS. THANK YOU! Scripts Ondansetron (ZOFRAN ODT) 4 Mg Tab.rapdis 4 MG PO BID Y for NAUSEA/VOMITING, #10 TAB Prov: MAXIMILIANO CARTER DO 09/10/17 Azithromycin (ZITHROMAX) 250 Mg Tablet 1 PKG PO UD, #6 TAB Prov: MAXIMILIANO CARTER DO 09/10/17 Oxycodone/Apap 5-325 (PERCOCET 5-325 MG TABLET) 1 Each Tablet 1 TAB PO PRN Q6HRS Y for PAIN, #20 TAB 0 Refills Prov: MAXIMILIANO CARTER DO 09/10/17 Albuterol Sulfate (PROAIR HFA INHALER) 8.5 Gm Hfa.aer.ad 1 PUFF INH Q4HRS Y for SHORTNESS OF BREATH, #1 INHALER 0 Refills Prov: MAXIMILIANO CARTER DO 09/10/17 Problem Qualifiers MAXIMILIANO CARTER DO Sep 10, 2017 20:09
[2017-09-10] MEDS ORDERED: IV NORMAL SALINE 1000ML BAG 1,000 ML IV ONE (20:30)
[2017-09-10 20:45] LABS: BASO % 1 % (0-3); EOS % 4 % (0-3); HEMATOCRIT 40.1 % (36.0-47.0); HEMOGLOBIN 13.7 g/dL (12.0-15.5); LYMPH # 1.3 x10^3/uL (1.0-4.8); LYMPH % 34 % (24-48); MEAN CORPUSCULAR HEMOGLOBIN 31 pg (25-35); MEAN CORPUSCULAR HGB CONC 34 g/dL (31-37); MEAN CORPUSCULAR VOLUME 91 fL (79-100); MONO % 14 % (0-9); NEUT % 48 % (31-73); PLATELET COUNT 136 x10^3/uL (140-400); RED BLOOD COUNT 4.42 x10^6/uL (3.50-5.40); WHITE BLOOD COUNT 3.9 x10^3/uL (4.0-11.0)
[2017-09-10 20:45] LABS: BILIRUBIN,URINE NEGATIVE (NEG); GLUCOSE,URINE NEGATIVE (NEG); NITRITE,URINE NEGATIVE (NEG); PROTEIN,URINE NEGATIVE (NEG-TRACE); UROBILINOGEN,URINE 0.2 mg/dL (0.2 mg/dL)
[2017-09-10] MEDS ORDERED: IPRATRPIUM/ALBUTEROL 0.5/2.5MG 3 ML NEBU. NEB ONE (20:45)
[2017-09-10] MEDS ORDERED: KETOROLAC 15 MG/ML VIAL. IV ONE (20:45)
[2017-09-10] MEDS ORDERED: DEXAMETHASONE SOD PHOS 20 MG/5 ML VIAL. IV ONE (20:45)
[2017-09-10] MEDS ORDERED: HYDROcodone/APAP 5/325MG 1 TAB TABLET PO ONE (20:45)
[2017-09-10] MEDS ORDERED: ONDANSETRON PF 4 MG/2 ML VIAL. IV ONE (20:45)
[2017-09-10 20:51] LABS: BACTERIA,URINE FEW /HPF (0-FEW); SQUAMOUS EPITHELIAL CELL,UR MANY /LPF
[2017-09-10 20:53] LABS: CALCIUM 8.4 mg/dL (8.5-10.1); CREATININE 0.9 mg/dL (0.6-1.0); GFR 71.7; POTASSIUM 3.6 mmol/L (3.5-5.1)
[2017-09-10 21:00] LABS: ALBUMIN 3.4 g/dL (3.4-5.0); MAGNESIUM 1.6 mg/dL (1.8-2.4); TOTAL BILIRUBIN 0.2 mg/dL (0.2-1.0); TOTAL PROTEIN 6.8 g/dL (6.4-8.2)
[2017-09-10] MEDS ORDERED: MAGNESIUM OXIDE 400 MG TABLET PO ONE (21:30)
[2017-09-10 22:15] LABS: OBC FLU VALID
[2017-09-10] MEDS ORDERED: IV NORMAL SALINE 500ML BAG 500 ML IV ONE (22:30)
[2017-09-10] MEDS ORDERED: fentaNYL PF VIAL 100 MCG/2 ML VIAL IV ONE (23:00)
[2017-09-10] MEDS ORDERED: ONDA4TAB10 PO (23:25)
[2017-09-10] MEDS ORDERED: AZIT250T PO (23:25)
[2017-09-10] MEDS ORDERED: PROAIR HFA8.5 GM INH (23:25)
[2017-09-10] MEDS ORDERED: OXYC-323 PO (23:25)
[2017-09-10 23:43] VITALS: BP 116/60
--- NOTE | 2017-09-11 08:15 | RAD ---
EXAM: Two view abdomen with one view chest HISTORY: Abdominal pain, nausea/vomiting, cough, chills, fever. COMPARISON: 01/29/2015. FINDINGS: A frontal view of the chest and supine/upright views of the abdomen are obtained. There are no confluent infiltrates. There is no pneumothorax or pleural effusion. The heart is not enlarged. There is no pneumoperitoneum. There are no distended small bowel loops or significant air-fluid levels. There is gas distally. IMPRESSION: 1. No confluent infiltrates. 2. No evidence of obstruction.
== END 2017-09-10 23:40 | disposition home or self-care (01) ==
LOC: ER 20:02
DX: B34.9 Viral infection, unspecified (principal); J40 Bronchitis, not specified as acute or chronic; E86.0 Dehydration; R10.9 Unspecified abdominal pain; M54.9 Dorsalgia, unspecified; F41.9 Anxiety disorder, unspecified; F32.9 Major depressive disorder, single episode, unspecified; I95.9 Hypotension, unspecified; Z90.49 Acquired absence of other specified parts of digestive tract; Z98.84 Bariatric surgery status; Z88.1 Allergy status to other antibiotic agents; Z88.5 Allergy status to narcotic agent
CPT/HCPCS: 36415; 74022; 80053; 81001; 81025; 82550; 83690; 83735; 85025; 87086; 87804; 94640; 96361; 96374; 96375; 99285; J1100; J1885; J2405; J3010; J7030; J7040; J7620

== ENCOUNTER 2018-11-15 02:19 | Emergency (ER) | payer OTHER ==
[~2018-11-15] VITALS: Ht 165.1 cm; Wt 59.0 kg
[~2018-11-15 02:19] MED LIST changes: +ALBU2.5V8 INH; +AMOX1TAB11 PO; +CITA20TA9 PO; +HYDR-3164 PO; -HYDR-971 PO; +LACT1CAP19 PO; +ONDA4TAB10 PO; +OXYC1TAB15 PO; -PROAIR HFA8.5 GM INH; -PROM118S2 PO; +PROM118S5 PO; -PROM12.56 PO; +PROM12.58 PO; +SUMA50TA3 PO
[2018-11-15 02:20] VITALS: BP 146/102
[2018-11-15] MEDS ORDERED: ONDANSETRON ODT 4 MG TAB.RAPDIS. PO ONE (03:00)
[2018-11-15] MEDS ORDERED: TETRACAINE 0.5% OPHTH SOLUTION 4ML BOTTLE. OS ONE (03:00)
[2018-11-15] MEDS ORDERED: PROPARACAINE/FLUORESCEIN 0.5 ML OPHTH DROPS. OS ONE (03:00)
[2018-11-15] MEDS ORDERED: EYE-STREAM OPHTH SOLUTION 120 ML BOTTLE. OS ONE (03:00)
[2018-11-15] MEDS ORDERED: KETOROLAC 30 MG/ML VIAL. IM ONE (03:30)
[2018-11-15] MEDS ORDERED: fentaNYL PF VIAL 100 MCG/2 ML VIAL IM ONE (04:00)
[2018-11-15] MEDS ORDERED: ERYTHROMYCIN 0.5% OPHTH OINTMENT 1GM TUBE. OS ONE (04:30)
[2018-11-15] MEDS ORDERED: HYDR-3164 PO (05:11)
[2018-11-15] MEDS ORDERED: ERYT1OIN6 OP (05:11)
--- NOTE | 2018-11-15 05:12 | PHYS DOC ---
Past Medical History Past Medical History: Anxiety, Depression, Hypotension, Other Additional Past Medical Histor: CROHNS Past Surgical History: Appendectomy, Cholecystectomy, Tonsillectomy, Other Additional Past Surgical Histo: EGD; colonoscopy, Abdominal bypass, sinus Additional Information: Nonsmoker Alcohol Use: Occasionally Drug Use: Marijuana Adult General Chief Complaint Chief Complaint: FOREIGN BODY/EYES HPI HPI 37 y/o female presents with report of accidentally placing 2-3 drops of "nail glue" into her left eye at approximately midnight. Patient reports that she thought she had something in her eye and ended up getting the dropper out of her bag thinking it was eye drops and immediately realized that she had placed the glue instead of the eye drops in her eye. Reports immediate "burning/sharp " pain. Denies use of contacts. Reports that she tried irrigating the water and used visine at home without relief. Denies . Review of Systems Review of Systems Constitutional: Denies fever or chills [] Eyes: Reports redness and eye pain [] HENT: Denies nasal congestion or sore throat [] Integument: Denies rash or skin lesions [] Neurologic: Denies headache, focal weakness or sensory changes [] Complete systems were reviewed and found to be within normal limits, except as documented in this note. Current Medications Current Medications Current Medications Medications (Trade) Dose Ordered Sig/Adrianna Start Time Stop Time Status Last Admin Dose Admin Acetaminophen/ Hydrocodone Bitart (Lortab 7.5/325) 1 tab 1X ONCE 11/15/18 05:15 11/15/18 05:16 DC 11/15/18 05:15 1 TAB Balanced Salt Solution (Eye-Stream) 120 ml 1X ONCE 11/15/18 03:00 11/15/18 03:01 DC 11/15/18 03:00 120 ML Erythromycin (Romycin) 0.25 inch 1X ONCE 11/15/18 04:30 11/15/18 04:31 DC 11/15/18 04:30 0.25 INCH Fentanyl Citrate (Fentanyl 2ml Vial) 75 mcg 1X ONCE 11/15/18 04:00 11/15/18 04:01 DC 11/15/18 04:00 75 MCG Ketorolac Tromethamine (Toradol 30mg Vial) 30 mg 1X ONCE 11/15/18 03:30 11/15/18 03:31 DC 11/15/18 03:30 30 MG Ondansetron HCl (Zofran Odt) 4 mg 1X ONCE 11/15/18 03:00 11/15/18 03:01 DC 11/15/18 02:57 4 MG Proparacaine HCl/ Fluorescein Sodium (Flucaine Eye Drops) 1 drop 1X ONCE 11/15/18 03:00 11/15/18 03:01 DC 11/15/18 03:00 1 DROP Tetracaine HCl (Tetracaine) 2 drop 1X ONCE 11/15/18 03:00 11/15/18 03:01 DC 11/15/18 02:57 2 DROP Allergies Allergies Allergies Coded Allergies Type Severity Reaction Last Updated Verified erythromycin base Allergy Intermediate Nausea and Vomiting 12/22/14 Yes morphine Allergy Intermediate "rash" but tolerates hydromorphone 01/29/15 Yes Physical Exam Physical Exam Constitutional: Well developed, well nourished, moderate acute distress due to pain/discomfort, non-toxic appearance. [] HENT: Normocephalic, atraumatic, oropharynx moist Eyes: PERRL, EOMI, conjunctiva injected, no discharge. [] Neck: Normal range of motion, no tenderness, supple Cardiovascular: Heart rate tachycardic with regular rhythm, no murmur [] Lungs & Thorax: Bilateral breath sounds clear to auscultation [] Skin: Warm, dry, no erythema, no rash. [] Extremities: No tenderness, ROM intact, no edema. [] Neurologic: Alert and oriented X 3, speech normal, no focal deficits noted. [] Psychologic: Affect anxious, judgement normal Current Patient Data Vital Signs Vital Signs Date Time Temp Pulse Resp B/P (MAP) Pulse Ox O2 Delivery O2 Flow Rate FiO2 11/15/18 05:15 16 98 Room Air 11/15/18 02:20 98.3 103 146/102 (117) 98.3 EKG EKG [] Radiology/Procedures Radiology/Procedures [] Course & Med Decision Making Course & Med Decision Making Patient presents with accidental exposure to "nail glue" to left eye. Hx of prior irrigation with water by patient and use of Visine eye drops without improvement. Patient uncomfortable upon arrival. Discussed case with poison control who recommended 15 min of eye irrigation and then evaluation for retained glue. Pain addressed. Tetracaine administered. Eye irrigation utilized. Slit lamp exam performed with concern for continued foreign body which required ophthalmological burring for removal. Corneal abrasion then demonstrated. NO Srini sign. Empiric ophthalmic antibiotic ointment placed. Patient stable for discharge home with outpatient follow-up with PCP/ Ophthalmology. Ophthalmology referral provided. Discussed findings and plan with patient and family, who acknowledge understanding and agreement. Dragon Disclaimer Dragon Disclaimer This electronic medical record was generated, in whole or in part, using a voice recognition dictation system. Slit Lamp Exam Procedure Indication: left eye foreign body Procedure: The patient was placed in the appropriate position. Verbal consent obtained. Time out performed. Tetracaine anesthesia was utilized. Fluorescein staining was performed. The slit lamp exam findings were as follows: Anterior chamber clear. Left corneal with foreign body at 4 o'clock position concerning for "nail glue". Ophthalmic burring utilized for successful complete removal. Subsequent corneal abrasion to site then demonstrated. NO Srini sign noted. Empiric erythromycin ophthalmic ointment applied. The patient tolerated the procedure well with some mild discomfort. Complications: None. Departure Departure Impression: Primary Impression: Left corneal abrasion Additional Impression: Foreign body in cornea, left eye, initial encounter Disposition: 01 HOME, SELF-CARE Condition: STABLE Referrals: YARELI MORSE MD (PCP) Ladi MAR MD Patient Instructions: Eye - Corneal Abrasion, [id number], Eye - Corneal Foreign Body Additional Instructions: May use over the counter Ibuprofen for pain. Scripts Hydrocodone/Apap 5-325 (NORCO 5-325 TABLET) 1 Each Tablet 1 TAB PO PRN Q6HRS PRN for PAIN, #10 TAB 0 Refills Prov: PENNY MONSIVAIS DO 11/15/18 Erythromycin Base (Erythromycin) 1 Gm Oint...g. 0.25 INCH OP QID for 5 Days, #1 TUBE Prov: PENNY MONSIVAIS DO 11/15/18 Problem Qualifiers Primary Impression: Left corneal abrasion Encounter type: initial encounter Qualified Codes: S05.02XA - Injury of conjunctiva and corneal abrasion without foreign body, left eye, initial encounter PENNY MONSIVAIS DO Nov 15, 2018 05:12
[2018-11-15] MEDS ORDERED: HYDROcodone/APAP 7.5/325MG 1 TAB TABLET PO ONE (05:15)
== END 2018-11-15 05:31 | disposition home or self-care (01) ==
LOC: ER 02:19
DX: T15.02XA Foreign body in cornea, left eye, initial encounter (principal); Z88.1 Allergy status to other antibiotic agents; Z88.5 Allergy status to narcotic agent; X58.XXXA Exposure to other specified factors, initial encounter; Y93.89 Activity, other specified; Y92.89 Other specified places as the place of occurrence of the external cause; Y99.8 Other external cause status
CPT/HCPCS: 96372; 99283; J1885; J3010; Q0162

== ENCOUNTER 2018-12-24 23:26 | Emergency (ER) | payer OTHER ==
[~2018-12-24] VITALS: Ht 160 cm; Wt 59.0 kg
[~2018-12-24 23:26] MED LIST changes: +ERYT1OIN6 OP
[2018-12-25] MEDS ORDERED: IV NORMAL SALINE 1000ML BAG 1,000 ML IV ONE
[2018-12-25] MEDS ORDERED: fentaNYL PF VIAL 100 MCG/2 ML VIAL IV ONE
[2018-12-25] MEDS ORDERED: ONDANSETRON PF 4 MG/2 ML VIAL. IV ONE
[2018-12-25 00:05] LABS: BILIRUBIN,URINE NEGATIVE (NEG); CLARITY,URINE CLOUDY; COLOR,URINE YELLOW; NITRITE,URINE NEGATIVE (NEG); PROTEIN,URINE NEGATIVE (NEG-TRACE); UROBILINOGEN,URINE 0.2 mg/dL (0.2 mg/dL)
[2018-12-25 00:06] LABS: BASO % 0 % (0-3); EOS # 0.1 x10^3/uL (0.0-0.7); EOS % 1 % (0-3); HEMATOCRIT 39.1 % (36.0-47.0); LYMPH # 2.7 x10^3/uL (1.0-4.8); LYMPH % 29 % (24-48); MEAN CORPUSCULAR HEMOGLOBIN 31 pg (25-35); MEAN CORPUSCULAR HGB CONC 33 g/dL (31-37); MEAN CORPUSCULAR VOLUME 92 fL (79-100); MONO # 0.9 x10^3/uL (0.0-1.1); MONO % 10 % (0-9); NEUT # 5.7 x10^3uL (1.8-7.7); NEUT % 61 % (31-73); PLATELET COUNT 200 x10^3/uL (140-400); RED BLOOD COUNT 4.27 x10^6/uL (3.50-5.40); RED CELL DISTRIBUTION WIDTH 13.2 % (11.5-14.5); WHITE BLOOD COUNT 9.5 x10^3/uL (4.0-11.0)
[2018-12-25 00:19] LABS: BACTERIA,URINE MODERATE /HPF (0-FEW); RBC,URINE TNTC /HPF (0-2); SQUAMOUS EPITHELIAL CELL,UR MANY /LPF; WBC,URINE TNTC /HPF (0-4)
[2018-12-25 00:22] LABS: ALBUMIN 3.2 g/dL (3.4-5.0); ALBUMIN/GLOBULIN RATIO 0.9 (1.0-1.7); CALCIUM 8.6 mg/dL (8.5-10.1); CREATININE 0.7 mg/dL (0.6-1.0); GFR 94.7; TOTAL BILIRUBIN 0.3 mg/dL (0.2-1.0); TOTAL PROTEIN 6.9 g/dL (6.4-8.2)
--- NOTE | 2018-12-25 00:28 | RAD ---
CT abdomen pelvis without contrast dated 12/25/2018. Comparison made to 07/21/2018. Clinical data indication: Flank pain. TECHNIQUE: Contiguous axial imaging of the abdomen and pelvis performed without the administration of IV or oral contrast. One or more of the following individualized dose reduction techniques were utilized for this examination: 1. Automated exposure control 2. Adjustment of the mA and/or kV according to patient size 3. Use of iterative reconstruction technique FINDINGS: Limited images of lung bases are clear. Heart size within normal limits. No pleural or pericardial effusion. Solid abdominal viscera not well evaluated in the absence of contrast material. No apparent attenuation abnormality of the liver or spleen. Gallbladder is surgically absent. Pancreas, adrenal glands unremarkable. There is a 6 mm calcific stone at the midpole right kidney. No calcific stone on the left. No calculus identified along the course of either ureter. No hydronephrosis. Unopacified GI tract normal in caliber and contour. No focal bowel wall thickening. No inflammatory stranding in the mesentery. The appendix is surgically absent. No free fluid or lymphadenopathy. Abdominal aorta normal in caliber. Images of pelvis show mild diffuse wall thickening of the urinary bladder. Uterus and adnexa are unremarkable. No free pelvic fluid or pelvic lymphadenopathy. Bone windows show no acute findings. IMPRESSION: 1. Right-sided nephrolithiasis, nonobstructive. 2. Status post cholecystectomy and appendectomy. 3. No acute findings. Electronically signed by: Rodolfo Henley MD (12/25/2018 12:26 AM) [facility]
[2018-12-25] MEDS ORDERED: cefTRIAXone IV Push 1 GM VIAL. IVP ONE (00:45)
[2018-12-25] MEDS ORDERED: KETOROLAC 30 MG/ML VIAL. ONE (00:50)
[2018-12-25] MEDS ORDERED: KETOROLAC 15 MG/ML VIAL. IV ONE (01:00)
[2018-12-25] MEDS ORDERED: CEPH500T PO (01:04)
[2018-12-25 01:05] VITALS: BP 110/62
--- NOTE | 2018-12-25 01:46 | PHYS DOC ---
Past Medical History Past Medical History: Anxiety, Depression, Hypotension, Other Additional Past Medical Histor: CROHNS Past Surgical History: Appendectomy, Cholecystectomy, Tonsillectomy, Other Additional Past Surgical Histo: EGD; colonoscopy, Abdominal bypass, sinus, D&C Alcohol Use: Occasionally Drug Use: Marijuana Adult General Chief Complaint Chief Complaint: BLOOD IN URINE HPI HPI Patient is a 38 year old f p/w dysuria and hematuria x 24 hours right flank and low abdo pain cramping in nature similar to prior uti and also priro kidney stones Review of Systems Review of Systems Constitutional: Denies fever or chills [] Eyes: Denies change in visual acuity, redness, or eye pain [] Musculoskeletal: Denies back pain or joint pain [] Integument: Denies rash or skin lesions [] Neurologic: Denies headache, focal weakness or sensory changes [] Endocrine: Denies polyuria or polydipsia [] All other systems were reviewed and found to be within normal limits, except as documented in this note. Current Medications Current Medications Current Medications Medications (Trade) Dose Ordered Sig/Adrianna Start Time Stop Time Status Last Admin Dose Admin Ceftriaxone Sodium (Rocephin) 1 gm 1X ONCE 12/25/18 00:45 12/25/18 00:46 DC 12/25/18 00:52 1 GM Fentanyl Citrate (Fentanyl 2ml Vial) 50 mcg 1X ONCE 12/25/18 00:00 12/25/18 00:01 DC 12/25/18 00:06 50 MCG Ketorolac Tromethamine (Toradol 15mg Vial) 15 mg 1X ONCE 12/25/18 01:00 12/25/18 01:01 DC 12/25/18 00:57 15 MG Ketorolac Tromethamine (Toradol 30mg Vial) 30 mg STK-MED ONCE 12/25/18 00:50 12/25/18 00:51 DC Ondansetron HCl (Zofran) 4 mg 1X ONCE 12/25/18 00:00 12/25/18 00:01 DC 12/25/18 00:03 4 MG Sodium Chloride 1,000 ml @ 1,000 mls/hr 1X ONCE 12/25/18 00:00 12/25/18 00:59 DC 12/25/18 00:06 1,000 MLS/HR Allergies Allergies Allergies Coded Allergies Type Severity Reaction Last Updated Verified erythromycin base Allergy Intermediate Nausea and Vomiting 12/22/14 Yes morphine Allergy Intermediate "rash" but tolerates hydromorphone 01/29/15 Yes Physical Exam Physical Exam Constitutional: Well developed, well nourished, no acute distress, non-toxic appearance. [] HENT: Normocephalic, atraumatic, bilateral external ears normal, oropharynx moist, no oral exudates, nose normal. [] Eyes: PERRLA, EOMI, conjunctiva normal, no discharge. [] Neck: Normal range of motion, no tenderness, supple, no stridor. [] Abdomen: Bowel sounds normal, soft, suprapubic tenderness, no masses, no pulsatile masses. [] Skin: Warm, dry, no erythema, no rash. [] Back:right cva ttp. Extremities: No tenderness, no cyanosis, no clubbing, ROM intact, no edema. [] Neurologic: Alert and oriented X 3, normal motor function, normal sensory function, no focal deficits noted. [] Psychologic: Affect normal, judgement normal, mood normal. [] Current Patient Data Vital Signs Vital Signs Date Time Temp Pulse Resp B/P (MAP) Pulse Ox O2 Delivery O2 Flow Rate FiO2 12/25/18 01:05 58 18 110/62 (78) 100 Room Air 12/24/18 23:55 98.7 98.7 Lab Values Laboratory Tests Test 12/24/18 23:45 12/24/18 23:49 White Blood Count 9.5 x10^3/uL (4.0-11.0) Red Blood Count 4.27 x10^6/uL (3.50-5.40) Hemoglobin 13.0 g/dL (12.0-15.5) Hematocrit 39.1 % (36.0-47.0) Mean Corpuscular Volume 92 fL (79-100) Mean Corpuscular Hemoglobin 31 pg (25-35) Mean Corpuscular Hemoglobin Concent 33 g/dL (31-37) Red Cell Distribution Width 13.2 % (11.5-14.5) Platelet Count 200 x10^3/uL (140-400) Neutrophils (%) (Auto) 61 % (31-73) Lymphocytes (%) (Auto) 29 % (24-48) Monocytes (%) (Auto) 10 % (0-9) H Eosinophils (%) (Auto) 1 % (0-3) Basophils (%) (Auto) 0 % (0-3) Neutrophils # (Auto) 5.7 x10^3uL (1.8-7.7) Lymphocytes # (Auto) 2.7 x10^3/uL (1.0-4.8) Monocytes # (Auto) 0.9 x10^3/uL (0.0-1.1) Eosinophils # (Auto) 0.1 x10^3/uL (0.0-0.7) Basophils # (Auto) 0.0 x10^3/uL (0.0-0.2) Urine Collection Type Void Urine Color Yellow Urine Clarity Cloudy Urine pH 6.0 Urine Specific [place] 1.020 Urine Protein Negative mg/dL (NEG-TRACE) Urine Glucose (UA) Negative mg/dL (NEG) Urine Ketones (Stick) Negative mg/dL (NEG) Urine Blood Large (NEG) Urine Nitrite Negative (NEG) Urine Bilirubin Negative (NEG) Urine Urobilinogen Dipstick 0.2 mg/dL (0.2 mg/dL) Urine Leukocyte Esterase Large (NEG) Urine RBC Tntc /HPF (0-2) Urine WBC Tntc /HPF (0-4) Urine Squamous Epithelial Cells Many /LPF Urine Bacteria Moderate /HPF (0-FEW) Urine Mucus Slight /LPF Sodium Level 145 mmol/L (136-145) Potassium Level 3.0 mmol/L (3.5-5.1) L Chloride Level 106 mmol/L (98-107) Carbon Dioxide Level 29 mmol/L (21-32) Anion Gap 10 (6-14) Blood Urea Nitrogen 11 mg/dL (7-20) Creatinine 0.7 mg/dL (0.6-1.0) Estimated GFR (Cockcroft-Gault) 94.7 BUN/Creatinine Ratio 16 (6-20) Glucose Level 93 mg/dL (70-99) Calcium Level 8.6 mg/dL (8.5-10.1) Total Bilirubin 0.3 mg/dL (0.2-1.0) Aspartate Amino Transferase (AST) 14 U/L (15-37) L Alanine Aminotransferase (ALT) 16 U/L (14-59) Alkaline Phosphatase 68 U/L (46-116) Total Protein 6.9 g/dL (6.4-8.2) Albumin 3.2 g/dL (3.4-5.0) L Albumin/Globulin Ratio 0.9 (1.0-1.7) L Lipase 156 U/L (73-393) POC Urine HCG, Qualitative Hcg negative (Negative) Laboratory Tests 12/24/18 23:45 Laboratory Tests 12/24/18 23:45 EKG EKG [] Radiology/Procedures Radiology/Procedures [] Impressions: IMPRESSION: 1. Right-sided nephrolithiasis, nonobstructive. 2. Status post cholecystectomy and appendectomy. 3. No acute findings. Electronically signed by: Rodolfo Henley MD (12/25/2018 12:26 AM) [facility] DICTATED and SIGNED BY: RODOLFO HENLEY MD Course & Med Decision Making Course & Med Decision Making Pertinent Labs and Imaging studies reviewed. (See chart for details) []nonobstructive nephrolithiasis noted uti bp okay outpt abx given return prec dsicussed. Dragon Disclaimer Dragon Disclaimer This electronic medical record was generated, in whole or in part, using a voice recognition dictation system. Departure Departure Impression: Primary Impression: UTI (lower urinary tract infection) Disposition: 01 HOME, SELF-CARE Condition: STABLE Referrals: YARELI MORSE MD (PCP) Patient Instructions: Urinary Tract Infection Scripts Cephalexin (CEPHALEXIN) 500 Mg Tablet 1 TAB PO QID, #40 TAB Prov: JUAN CARLOS WANG MD 12/25/18 JUAN CARLOS WANG MD Dec 25, 2018 01:46
== END 2018-12-25 01:15 | disposition home or self-care (01) ==
LOC: ER 23:26
DX: N39.0 Urinary tract infection, site not specified (principal); I10 Essential (primary) hypertension; K50.90 Crohn's disease, unspecified, without complications; Z90.89 Acquired absence of other organs; Z90.49 Acquired absence of other specified parts of digestive tract; Z98.84 Bariatric surgery status; Z88.1 Allergy status to other antibiotic agents; Z88.5 Allergy status to narcotic agent
CPT/HCPCS: 36415; 74176; 80053; 81001; 81025; 83690; 85025; 87086; 96374; 96375; 99284; J0696; J1885; J2405; J3010; J7030; 96361

== ENCOUNTER 2019-01-25 08:58 | Emergency (ER) | payer OTHER ==
[~2019-01-25] VITALS: Ht 162.6 cm; Wt 59.0 kg
[~2019-01-25 08:58] MED LIST changes: +CEPH500T PO
[2019-01-25] MEDS ORDERED: METOCLOPRAMIDE HCL 10 MG/2 ML VIAL. IV ONE (09:45)
[2019-01-25] MEDS ORDERED: DEXAMETHASONE SOD PHOS 20 MG/5 ML VIAL. IV ONE (09:45)
[2019-01-25] MEDS ORDERED: IV NORMAL SALINE 1000ML BAG 1,000 ML IV ONE (09:45)
[2019-01-25] MEDS ORDERED: valACYclovir 500 MG TABLET. PO ONE (09:45)
[2019-01-25] MEDS ORDERED: fentaNYL PF VIAL 100 MCG/2 ML VIAL IV ONE (09:45)
[2019-01-25] MEDS ORDERED: KETOROLAC 30 MG/ML VIAL. IV ONE (09:45)
--- NOTE | 2019-01-25 09:56 | PHYS DOC ---
Past Medical History Past Medical History: Anxiety, Depression, Hypotension, Kidney Stone, Other Additional Past Medical Histor: CROHNS Past Surgical History: Appendectomy, Cholecystectomy, Tonsillectomy, Other Additional Past Surgical Histo: EGD; colonoscopy, Abdominal bypass, sinus, D&C Alcohol Use: Occasionally Drug Use: Marijuana Adult General Chief Complaint Chief Complaint: FLANK PAIN HPI HPI Patient is a 38 year old female who presents with flank pain. Patient has a history of kidney stones and has two known stones, 8mm and 9mm when last evaluated in December 2018, in her right kidney. Patient states that she also has a few smaller known stones in her left kidney. Patient reports urinary frequency , flank pain, left worse than right, nausea, vomiting, and hematuria since last night. Patient states that the pain radiates around to her right groin. Patient states that the pain is constantly dull and intermittently becomes sharp and throbbing. Patient notes that she is under an extreme amount of stress as her best friend recently. Patient denies suicidal and homicidal ideation. Patient also reports a painful area of red bumps on her right thigh for the past three days. Patient reports a history of shingles a few years ago. Patient currently rates her flank pain to be 10/10 and her thigh pain to be 6/ 10. Patient denies any aggravating or alleviating factors. LMP was last week. Review of Systems Review of Systems Constitutional: Denies fever or chills Eyes: Denies change in visual acuity or eye pain HENT: Denies nasal congestion or sore throat Respiratory: Denies cough or shortness of breath Cardiovascular: Denies chest pain or palpitations GI: Denies abdominal pain or diarrhea. Reports nausea and vomiting. : Reports hematuria and urinary frequency Musculoskeletal: Denies back pain or joint pain Integument: Reports skin rash on right thigh. Denies lesions. Neurologic: Denies focal weakness or sensory changes Complete systems were reviewed and found to be within normal limits, except as documented in this note. Current Medications Current Medications Current Medications Medications (Trade) Dose Ordered Sig/Adrianna Start Time Stop Time Status Last Admin Dose Admin Dexamethasone Sodium Phosphate (Decadron) 10 mg 1X ONCE 01/25/19 09:45 01/25/19 09:46 DC 01/25/19 10:11 10 MG Diphenhydramine HCl (Benadryl) 50 mg 1X ONCE 01/25/19 11:30 01/25/19 11:31 DC 01/25/19 11:35 50 MG Fentanyl Citrate (Fentanyl 2ml Vial) 50 mcg 1X ONCE 01/25/19 09:45 01/25/19 09:46 DC 01/25/19 10:22 50 MCG Ketorolac Tromethamine (Toradol 30mg Vial) 15 mg 1X ONCE 01/25/19 09:45 01/25/19 09:46 DC 01/25/19 10:15 15 MG Lorazepam (Ativan) 2 mg STK-MED ONCE 01/25/19 11:08 01/25/19 11:09 DC Metoclopramide HCl (Reglan Vial) 10 mg 1X ONCE 01/25/19 09:45 01/25/19 09:46 DC 01/25/19 10:17 10 MG Sodium Chloride 1,000 ml @ 1,000 mls/hr 1X ONCE 01/25/19 09:45 01/25/19 10:44 DC 01/25/19 10:10 1,000 MLS/HR Valacyclovir HCl (Valtrex) 1,000 mg 1X ONCE 01/25/19 09:45 01/25/19 09:46 DC 01/25/19 10:23 1,000 MG Allergies Allergies Allergies Coded Allergies Type Severity Reaction Last Updated Verified erythromycin base Allergy Intermediate Nausea and Vomiting 12/22/14 Yes morphine Allergy Intermediate "rash" but tolerates hydromorphone 01/29/15 Yes Physical Exam Physical Exam Constitutional: Well developed, well nourished, non-toxic appearance. HENT: Normocephalic, atraumatic, oropharynx moist, nose normal. Eyes: PERRL, EOMI, conjunctiva normal, no discharge. Neck: Normal range of motion, supple, no stridor. Cardiovascular:Heart rate regular rhythm, no murmur Lungs & Thorax: Bilateral breath sounds clear to auscultation. No wheezing or rales. Abdomen: Soft, no tenderness. No rebound, guarding, or rigidity. Skin: Warm, dry. Erythematous vesicles located on the anterior aspect of the right thigh that are tender to palpation. Multiple abrasions located on bilateral feet. Back: No midline tenderness. Right CVA tenderness. Extremities: No tenderness, no cyanosis, ROM intact, no edema. Neurologic: Alert and oriented X3, normal motor function, normal sensory function, no focal deficits noted. Psychologic: Tearful on exam. Denies suicidal ideation. Current Patient Data Vital Signs Vital Signs Date Time Temp Pulse Resp B/P (MAP) Pulse Ox O2 Delivery O2 Flow Rate FiO2 01/25/19 10:22 12 99 Room Air 01/25/19 09:12 97.9 56 122/78 (93) 97.9 Lab Values Laboratory Tests Test 01/25/19 09:17 01/25/19 10:15 01/25/19 11:50 POC Urine HCG, Qualitative Hcg negative (Negative) White Blood Count 9.9 x10^3/uL (4.0-11.0) Red Blood Count 4.43 x10^6/uL (3.50-5.40) Hemoglobin 13.6 g/dL (12.0-15.5) Hematocrit 40.9 % (36.0-47.0) Mean Corpuscular Volume 92 fL (79-100) Mean Corpuscular Hemoglobin 31 pg (25-35) Mean Corpuscular Hemoglobin Concent 33 g/dL (31-37) Red Cell Distribution Width 13.5 % (11.5-14.5) Platelet Count 157 x10^3/uL (140-400) Neutrophils (%) (Auto) 74 % (31-73) H Lymphocytes (%) (Auto) 17 % (24-48) L Monocytes (%) (Auto) 7 % (0-9) Eosinophils (%) (Auto) 2 % (0-3) Basophils (%) (Auto) 0 % (0-3) Neutrophils # (Auto) 7.3 x10^3uL (1.8-7.7) Lymphocytes # (Auto) 1.7 x10^3/uL (1.0-4.8) Monocytes # (Auto) 0.7 x10^3/uL (0.0-1.1) Eosinophils # (Auto) 0.2 x10^3/uL (0.0-0.7) Basophils # (Auto) 0.0 x10^3/uL (0.0-0.2) Sodium Level 139 mmol/L (136-145) Potassium Level 3.2 mmol/L (3.5-5.1) L Chloride Level 102 mmol/L (98-107) Carbon Dioxide Level 27 mmol/L (21-32) Anion Gap 10 (6-14) Blood Urea Nitrogen 8 mg/dL (7-20) Creatinine 0.8 mg/dL (0.6-1.0) Estimated GFR (Cockcroft-Gault) 81.2 BUN/Creatinine Ratio 10 (6-20) Glucose Level 108 mg/dL (70-99) H Calcium Level 8.5 mg/dL (8.5-10.1) Total Bilirubin 0.5 mg/dL (0.2-1.0) Aspartate Amino Transferase (AST) 19 U/L (15-37) Alanine Aminotransferase (ALT) 22 U/L (14-59) Alkaline Phosphatase 59 U/L (46-116) Total Protein 6.8 g/dL (6.4-8.2) Albumin 3.5 g/dL (3.4-5.0) Albumin/Globulin Ratio 1.1 (1.0-1.7) Lipase 199 U/L (73-393) Urine Collection Type Void Urine Color Yellow Urine Clarity Cloudy Urine pH 6.0 Urine Specific [place] 1.020 Urine Protein Negative mg/dL (NEG-TRACE) Urine Glucose (UA) Negative mg/dL (NEG) Urine Ketones (Stick) 15 mg/dL (NEG) Urine Blood Negative (NEG) Urine Nitrite Negative (NEG) Urine Bilirubin Negative (NEG) Urine Urobilinogen Dipstick 0.2 mg/dL (0.2 mg/dL) Urine Leukocyte Esterase Negative (NEG) Urine RBC Fobs /HPF (0-2) Urine WBC Fobs /HPF (0-4) Urine Squamous Epithelial Cells Many /LPF Urine Amorphous Sediment Present /HPF Urine Bacteria Few /HPF (0-FEW) Laboratory Tests 01/25/19 10:15 Laboratory Tests 01/25/19 10:15 EKG EKG [] Radiology/Procedures Radiology/Procedures []PROCEDURE: CT ABDOMEN PELVIS WO CONTRAST PQRS Compliance Statement: One or more of the following individualized dose reduction techniques were utilized for this examination: 1. Automated exposure control 2. Adjustment of the mA and/or kV according to patient size 3. Use of iterative reconstruction technique CT abdomen/pelvis without contrast 01/25/2019 10:34 AM INDICATION: Right flank pain with history of renal stones. COMPARISON: CT abdomen/pelvis December 24, 2018 TECHNIQUE: Multiple axial CT images of the abdomen and pelvis were obtained without intravenous contrast. Coronal and sagittal reformats are provided. FINDINGS: Lung bases are clear. Heart size is within normal limits. Evaluation of the solid abdominal viscera is limited by lack of intravenous contrast. Liver, spleen, bilateral adrenal glands, and pancreas are normal in appearance. No peripancreatic inflammatory changes are identified. Gallbladder surgically absent. Abdominal aorta is normal in course and caliber. There are no pathologically enlarged lymph nodes in abdomen and pelvis. There is no free fluid or free intraperitoneal air. There is mild colonic diverticulosis. No adjacent inflammatory changes are identified. Small and large bowel loops are normal in caliber. No evidence for bowel obstruction or inflammation. Appendix appears surgically absent. There is a 6 mm nonobstructing calculus in superior pole the right kidney. There are no calculi identified within the ureters or urinary bladder. Few punctate calculi are identified bilaterally, nonobstructing. No suspicious renal mass. Cystic lesion is identified within the right adnexa measuring 2.8 cm. This may represent a dominant follicle. No significant free fluid is identified within the dependent portion of the pelvis. Uterus is normal by CT. No suspicious osseous amount is identified. IMPRESSION: 1. No evidence for obstructive uropathy. There is a superior pole right renal calculus measuring 6 mm, nonobstructing. 2. There is a cystic lesion in the right adnexa measuring 2.8 cm. This may represent a dominant follicle or hemorrhagic cyst. Further evaluation with pelvic ultrasound may be of benefit if clinically warranted. Course & Med Decision Making Course & Med Decision Making Patient is a 38 year old female who presents to the ED for evaluation of flank pain, nausea, vomiting, hematuria, and urinary frequency. CT scan of abdomen/pelvis ordered for evaluation of location and size current kidney stones. Vesicles located on right thigh are consistent with shingles. Patient treated with Fentanyl, Dexamethasone, Reglan, Ketorolac, Valacyclovir, and fluids in the ED. Pertinent Labs and Imaging studies reviewed. (See chart for details). CT reveals nonobstructing 6mm stone in the right superior pole. On reexamination patient reports relief from medication and is stable for discharge home. Prescriptions for Prednisone, Hydrocodone, Zofran, and Valtrex given. Patient was instructed to follow up with her primary care physician. Patient verbalized understanding and agreed with plan. Dragon Disclaimer Dragon Disclaimer This electronic medical record was generated, in whole or in part, using a voice recognition dictation system. Departure Departure Impression: Primary Impression: Flank pain Additional Impression: Shingles Disposition: 01 HOME, SELF-CARE Condition: STABLE Referrals: YARELI MORSE MD (PCP) LINCOLN RIVERA MD Patient Instructions: Flank Pain, [id number], Shingles, [id number] Scripts Prednisone (PREDNISONE) 20 Mg Tablet 2 TAB PO DAILY, #8 TAB Start this medication tomorrow 01/26/19 Prov: PENNY MONSIVAIS DO 01/25/19 Valacyclovir Hcl (VALACYCLOVIR) 1,000 Mg Tablet 1 TAB PO TID, #21 TAB Prov: PENNY MONSIVAIS DO 01/25/19 Ondansetron (ONDANSETRON ODT) 4 Mg Tab.rapdis 1 TAB PO PRN Q6-8HRS for VOMITING, #16 TAB Prov: PENNY MONSIVAIS DO 01/25/19 Hydrocodone/Apap 5-325 (NORCO 5-325 TABLET) 1 Each Tablet 1 TAB PO PRN Q6HRS PRN for PAIN, #14 TAB 0 Refills Prov: PENNY MONSIVAIS DO 01/25/19 Problem Qualifiers Additional Impression: Shingles Herpes zoster complications: without complications Qualified Codes: B02.9 - Zoster without complications PENNY MONSIVAIS DO Jan 25, 2019 09:56
[2019-01-25 10:40] LABS: BASO % 0 % (0-3); EOS # 0.2 x10^3/uL (0.0-0.7); EOS % 2 % (0-3); HEMATOCRIT 40.9 % (36.0-47.0); HEMOGLOBIN 13.6 g/dL (12.0-15.5); LYMPH # 1.7 x10^3/uL (1.0-4.8); LYMPH % 17 % (24-48); MEAN CORPUSCULAR HEMOGLOBIN 31 pg (25-35); MEAN CORPUSCULAR HGB CONC 33 g/dL (31-37); MEAN CORPUSCULAR VOLUME 92 fL (79-100); MONO # 0.7 x10^3/uL (0.0-1.1); MONO % 7 % (0-9); NEUT # 7.3 x10^3uL (1.8-7.7); NEUT % 74 % (31-73); PLATELET COUNT 157 x10^3/uL (140-400); RED BLOOD COUNT 4.43 x10^6/uL (3.50-5.40); RED CELL DISTRIBUTION WIDTH 13.5 % (11.5-14.5); WHITE BLOOD COUNT 9.9 x10^3/uL (4.0-11.0)
[2019-01-25 10:48] LABS: CALCIUM 8.5 mg/dL (8.5-10.1); CREATININE 0.8 mg/dL (0.6-1.0); GFR 81.2; POTASSIUM 3.2 mmol/L (3.5-5.1)
[2019-01-25 10:54] LABS: ALBUMIN 3.5 g/dL (3.4-5.0); ALBUMIN/GLOBULIN RATIO 1.1 (1.0-1.7); TOTAL BILIRUBIN 0.5 mg/dL (0.2-1.0); TOTAL PROTEIN 6.8 g/dL (6.4-8.2)
--- NOTE | 2019-01-25 11:06 | RAD ---
PQRS Compliance Statement: One or more of the following individualized dose reduction techniques were utilized for this examination: 1. Automated exposure control 2. Adjustment of the mA and/or kV according to patient size 3. Use of iterative reconstruction technique CT abdomen/pelvis without contrast 01/25/2019 10:34 AM INDICATION: Right flank pain with history of renal stones. COMPARISON: CT abdomen/pelvis December 24, 2018 TECHNIQUE: Multiple axial CT images of the abdomen and pelvis were obtained without intravenous contrast. Coronal and sagittal reformats are provided. FINDINGS: Lung bases are clear. Heart size is within normal limits. Evaluation of the solid abdominal viscera is limited by lack of intravenous contrast. Liver, spleen, bilateral adrenal glands, and pancreas are normal in appearance. No peripancreatic inflammatory changes are identified. Gallbladder surgically absent. Abdominal aorta is normal in course and caliber. There are no pathologically enlarged lymph nodes in abdomen and pelvis. There is no free fluid or free intraperitoneal air. There is mild colonic diverticulosis. No adjacent inflammatory changes are identified. Small and large bowel loops are normal in caliber. No evidence for bowel obstruction or inflammation. Appendix appears surgically absent. There is a 6 mm nonobstructing calculus in superior pole the right kidney. There are no calculi identified within the ureters or urinary bladder. Few punctate calculi are identified bilaterally, nonobstructing. No suspicious renal mass. Cystic lesion is identified within the right adnexa measuring 2.8 cm. This may represent a dominant follicle. No significant free fluid is identified within the dependent portion of the pelvis. Uterus is normal by CT. No suspicious osseous amount is identified. IMPRESSION: 1. No evidence for obstructive uropathy. There is a superior pole right renal calculus measuring 6 mm, nonobstructing. 2. There is a cystic lesion in the right adnexa measuring 2.8 cm. This may represent a dominant follicle or hemorrhagic cyst. Further evaluation with pelvic ultrasound may be of benefit if clinically warranted. Electronically signed by: Kadi Newman MD (01/25/2019 11:03 AM) [id number]
[2019-01-25] MEDS ORDERED: diphenhydrAMINE 50 MG/ML VIAL IVP ONE (11:30)
[2019-01-25 11:57] LABS: BILIRUBIN,URINE NEGATIVE (NEG); CLARITY,URINE CLOUDY; COLOR,URINE YELLOW; NITRITE,URINE NEGATIVE (NEG); PROTEIN,URINE NEGATIVE (NEG-TRACE); UROBILINOGEN,URINE 0.2 mg/dL (0.2 mg/dL)
[2019-01-25 11:58] LABS: SQUAMOUS EPITHELIAL CELL,UR MANY /LPF
[2019-01-25 11:59] LABS: RBC,URINE FOBS /HPF (0-2); WBC,URINE FOBS /HPF (0-4)
[2019-01-25 12:00] VITALS: BP 101/58
[2019-01-25 12:00] LABS: AMORPHOUS SEDIMENT,UR PRESENT /HPF; BACTERIA,URINE FEW /HPF (0-FEW)
[2019-01-25] MEDS ORDERED: PRED20TA PO (12:10)
[2019-01-25] MEDS ORDERED: ONDA4TAB12 PO (12:10)
[2019-01-25] MEDS ORDERED: VALA1000 PO (12:10)
[2019-01-25] MEDS ORDERED: HYDR-3164 PO (12:10)
== END 2019-01-25 12:53 | disposition home or self-care (01) ==
LOC: ER 08:58
DX: S90.812A Abrasion, left foot, initial encounter (principal); S90.811A Abrasion, right foot, initial encounter; B02.9 Zoster without complications; R10.9 Unspecified abdominal pain; R35.0 Frequency of micturition; R31.9 Hematuria, unspecified; R11.2 Nausea with vomiting, unspecified; F41.9 Anxiety disorder, unspecified; F32.9 Major depressive disorder, single episode, unspecified; Z90.89 Acquired absence of other organs; Z90.49 Acquired absence of other specified parts of digestive tract; Z87.442 Personal history of urinary calculi; Z88.1 Allergy status to other antibiotic agents; Z88.5 Allergy status to narcotic agent; X58.XXXA Exposure to other specified factors, initial encounter; Y93.89 Activity, other specified; Y92.89 Other specified places as the place of occurrence of the external cause; Y99.8 Other external cause status
CPT/HCPCS: 36415; 74176; 80053; 81001; 81025; 83690; 85025; 87086; 96361; 96374; 96375; 99284; J1100; J1200; J1885; J2060; J2765; J3010; J7030

== ENCOUNTER 2019-01-27 15:17 | Emergency (ER) | payer OTHER ==
[~2019-01-27] VITALS: Ht 162.6 cm; Wt 59.0 kg
[~2019-01-27 15:17] MED LIST changes: +ONDA4TAB12 PO; +VALA1000 PO
--- NOTE | 2019-01-27 15:39 | PHYS DOC ---
Past Medical History Past Medical History: Anxiety, Depression, Hypotension, Kidney Stone, Other Additional Past Medical Histor: CROHNS Past Surgical History: Appendectomy, Cholecystectomy, Tonsillectomy, Other Additional Past Surgical Histo: EGD; colonoscopy, Abdominal bypass, sinus, D&C Alcohol Use: Occasionally Drug Use: Marijuana Adult General Chief Complaint Chief Complaint: MULTIPLE COMPLAINTS [facility] HPI Patient is a 38 year old female with a history of kidney stones and is currently being treated for shingles outpatient presents to the ED complaining of right flank pain that is the same since her visit 2 days ago on January 25. Patient states that the pain is to her flank. Does not radiate. Describes the pain as sharp. Rates the pain as 10/10. Denies nausea/vomiting, dizziness, weakness, chest pain, shortness of breath, fever, dysuria, hematuria, neck pain or headache. Review of Systems Review of Systems Constitutional: Denies fever or chills [] Eyes: Denies change in visual acuity, redness, or eye pain [] HENT: Denies nasal congestion or sore throat [] Respiratory: Denies cough or shortness of breath [] Cardiovascular: No additional information not addressed in HPI [] GI: Denies abdominal pain, nausea, vomiting, bloody stools or diarrhea [] : Denies dysuria or hematuria [] Musculoskeletal: Complains of flank pain. Denies back pain or joint pain [] Integument: Denies rash or skin lesions [] Neurologic: Denies headache, focal weakness or sensory changes [] All other systems were reviewed and found to be within normal limits, except as documented in this note. Current Medications Current Medications Current Medications Medications (Trade) Dose Ordered Sig/[facility] Start Time Stop Time Status Last Admin Dose Admin Fentanyl Citrate (Fentanyl 2ml Vial) 50 mcg 1X ONCE 01/27/19 18:00 01/27/19 18:01 DC 01/27/19 17:54 50 MCG Ondansetron HCl (Zofran) 4 mg 1X ONCE 01/27/19 15:45 01/27/19 15:46 DC 01/27/19 15:50 4 MG Allergies Allergies Allergies Coded Allergies Type Severity Reaction Last Updated Verified erythromycin base Allergy Intermediate Nausea and Vomiting 12/22/14 Yes morphine Allergy Intermediate "rash" but tolerates hydromorphone 01/29/15 Yes metoclopramide Allergy Unknown 01/27/19 Yes Physical Exam Physical Exam Constitutional: Well developed, well nourished, no acute distress, non-toxic appearance. [] HENT: Normocephalic, atraumatic. Eyes: PERRLA, EOMI, conjunctiva normal, no discharge. [] Neck: Normal range of motion, no tenderness, supple, no stridor. [] Cardiovascular:Heart rate regular rhythm, no murmur [] Lungs & Thorax: Bilateral breath sounds clear to auscultation [] Abdomen: Bowel sounds normal, soft, no tenderness, no masses, no pulsatile masses. [] Skin: erythematous vesicles in dermatomal distribution to right anterior thigh consistent with shingles. Warm, dry. Back: No tenderness, no CVA tenderness. FROM. No overlying skin changes.[] Extremities: No tenderness, no cyanosis, no clubbing, ROM intact, no edema. [] Neurologic: Alert and oriented X 3, normal motor function, normal sensory function, no focal deficits noted. [] Psychologic: Affect normal, judgement normal, mood normal. [] Current Patient Data Vital Signs Vital Signs Date Time Temp Pulse Resp B/P (MAP) Pulse Ox O2 Delivery O2 Flow Rate FiO2 01/27/19 17:54 18 99 Room Air 01/27/19 17:30 61 138/79 (98) 01/27/19 15:20 98.0 98.0 Lab Values Laboratory Tests Test 01/27/19 15:15 01/27/19 15:36 01/27/19 15:50 Urine Collection Type Unknown Urine Color Yellow Urine Clarity Cloudy Urine pH 8.0 Urine Specific [place] 1.015 Urine Protein Negative mg/dL (NEG-TRACE) Urine Glucose (UA) Negative mg/dL (NEG) Urine Ketones (Stick) Negative mg/dL (NEG) Urine Blood Negative (NEG) Urine Nitrite Negative (NEG) Urine Bilirubin Negative (NEG) Urine Urobilinogen Dipstick 0.2 mg/dL (0.2 mg/dL) Urine Leukocyte Esterase Negative (NEG) Urine RBC Rare /HPF (0-2) Urine WBC Rare /HPF (0-4) Urine Squamous Epithelial Cells Many /LPF Urine Bacteria Many /HPF (0-FEW) POC Urine HCG, Qualitative Hcg negative (Negative) White Blood Count 7.5 x10^3/uL (4.0-11.0) Red Blood Count 4.41 x10^6/uL (3.50-5.40) Hemoglobin 13.8 g/dL (12.0-15.5) Hematocrit 41.0 % (36.0-47.0) Mean Corpuscular Volume 93 fL (79-100) Mean Corpuscular Hemoglobin 31 pg (25-35) Mean Corpuscular Hemoglobin Concent 34 g/dL (31-37) Red Cell Distribution Width 13.2 % (11.5-14.5) Platelet Count 148 x10^3/uL (140-400) Neutrophils (%) (Auto) 67 % (31-73) Lymphocytes (%) (Auto) 25 % (24-48) Monocytes (%) (Auto) 7 % (0-9) Eosinophils (%) (Auto) 1 % (0-3) Basophils (%) (Auto) 0 % (0-3) Neutrophils # (Auto) 5.0 x10^3uL (1.8-7.7) Lymphocytes # (Auto) 1.8 x10^3/uL (1.0-4.8) Monocytes # (Auto) 0.5 x10^3/uL (0.0-1.1) Eosinophils # (Auto) 0.1 x10^3/uL (0.0-0.7) Basophils # (Auto) 0.0 x10^3/uL (0.0-0.2) Sodium Level 139 mmol/L (136-145) Potassium Level 3.8 mmol/L (3.5-5.1) Chloride Level 103 mmol/L (98-107) Carbon Dioxide Level 29 mmol/L (21-32) Anion Gap 7 (6-14) Blood Urea Nitrogen 11 mg/dL (7-20) Creatinine 0.7 mg/dL (0.6-1.0) Estimated GFR (Cockcroft-Gault) 94.7 BUN/Creatinine Ratio 16 (6-20) Glucose Level 89 mg/dL (70-99) Calcium Level 8.4 mg/dL (8.5-10.1) L Total Bilirubin 0.4 mg/dL (0.2-1.0) Aspartate Amino Transferase (AST) 13 U/L (15-37) L Alanine Aminotransferase (ALT) 17 U/L (14-59) Alkaline Phosphatase 50 U/L (46-116) Total Protein 6.5 g/dL (6.4-8.2) Albumin 3.2 g/dL (3.4-5.0) L Albumin/Globulin Ratio 1.0 (1.0-1.7) Laboratory Tests 01/27/19 15:50 Laboratory Tests 01/27/19 15:50 EKG EKG [] Radiology/Procedures Radiology/Procedures []PROCEDURE: PELVIS ULTRASOUND INDICATION: Rt pelvic pain COMPARISON: CT from January 25, 2019 TECHNIQUE: Grayscale and color ultrasound images uterus and adnexa. Transabdominal and transvaginal images obtained. FINDINGS: Uterus: 85 x 46 x 35 mm. Endometrial Stripe: 7 mm. Right Ovary: 29 x 24 x 18 mm. Left Ovary: 22 x 19 x 14 mm. Vascular flow identified to bilateral ovaries. There are some cystic changes near the cervix. Free fluid is seen. IMPRESSION: 1. Vascular flow seen to the ovaries. 2. There is some cystic changes near the cervix which could be from causes such as nabothian cysts. 3. Free fluid in the pelvis. This is most severe in the right adnexal region. Course & Med Decision Making Course & Med Decision Making Pertinent Labs and Imaging studies reviewed. (See chart for details) []Discussed lab and imaging findings with patient. Patient's pain improved in the ED. Patient had a 6 cm stone in the superior pole of the kidney on previous imaging done 2 days ago. US on remarkable and lab work WNL. On re-examination, abdomen is soft nontender nondistended. No peritoneal signs. Tolerating by mouth. Discussed symptomatic treatment and follow-up with urology outpatient. Provided contact information/education. Patient is to continue antiviral treatment for shingles. Discussed reasons to return to the ED. Patient understands and agrees with plan. Parents at bedside. Dragon Disclaimer Dragon Disclaimer This electronic medical record was generated, in whole or in part, using a voice recognition dictation system. Departure Departure Impression: Primary Impression: Kidney stone Additional Impressions: Ovarian cyst Shingles Disposition: HOME, SELF-CARE Condition: IMPROVED Referrals: YARELI MORSE MD (PCP) LINCOLN RIVERA MD Patient Instructions: Kidney Stones, Ovarian Cyst Problem Qualifiers LINCOLN HOFFMAN Jan 27, 2019 15:39
[2019-01-27 15:42] LABS: BILIRUBIN,URINE NEGATIVE (NEG); CLARITY,URINE CLOUDY; COLOR,URINE YELLOW; NITRITE,URINE NEGATIVE (NEG); PROTEIN,URINE NEGATIVE (NEG-TRACE); UROBILINOGEN,URINE 0.2 mg/dL (0.2 mg/dL)
[2019-01-27] MEDS ORDERED: ONDANSETRON PF 4 MG/2 ML VIAL. IV ONE (15:45)
[2019-01-27] MEDS ORDERED: fentaNYL PF VIAL 100 MCG/2 ML VIAL IV ONE ×2 (15:45→18:00)
[2019-01-27 15:50] LABS: BACTERIA,URINE MANY /HPF (0-FEW); RBC,URINE RARE /HPF (0-2); SQUAMOUS EPITHELIAL CELL,UR MANY /LPF; WBC,URINE RARE /HPF (0-4)
[2019-01-27 15:59] LABS: BASO % 0 % (0-3); EOS # 0.1 x10^3/uL (0.0-0.7); EOS % 1 % (0-3); HEMOGLOBIN 13.8 g/dL (12.0-15.5); LYMPH # 1.8 x10^3/uL (1.0-4.8); LYMPH % 25 % (24-48); MEAN CORPUSCULAR HEMOGLOBIN 31 pg (25-35); MEAN CORPUSCULAR HGB CONC 34 g/dL (31-37); MEAN CORPUSCULAR VOLUME 93 fL (79-100); MONO # 0.5 x10^3/uL (0.0-1.1); MONO % 7 % (0-9); NEUT % 67 % (31-73); PLATELET COUNT 148 x10^3/uL (140-400); RED BLOOD COUNT 4.41 x10^6/uL (3.50-5.40); RED CELL DISTRIBUTION WIDTH 13.2 % (11.5-14.5); WHITE BLOOD COUNT 7.5 x10^3/uL (4.0-11.0)
[2019-01-27 16:17] LABS: CALCIUM 8.4 mg/dL (8.5-10.1); CREATININE 0.7 mg/dL (0.6-1.0); GFR 94.7; POTASSIUM 3.8 mmol/L (3.5-5.1)
[2019-01-27 16:22] LABS: ALBUMIN 3.2 g/dL (3.4-5.0); TOTAL BILIRUBIN 0.4 mg/dL (0.2-1.0); TOTAL PROTEIN 6.5 g/dL (6.4-8.2)
[2019-01-27 17:30] VITALS: BP 138/79
--- NOTE | 2019-01-27 17:36 | RAD ---
INDICATION: Rt pelvic pain COMPARISON: CT from January 25, 2019 TECHNIQUE: Grayscale and color ultrasound images uterus and adnexa. Transabdominal and transvaginal images obtained. FINDINGS: Uterus: 85 x 46 x 35 mm. Endometrial Stripe: 7 mm. Right Ovary: 29 x 24 x 18 mm. Left Ovary: 22 x 19 x 14 mm. Vascular flow identified to bilateral ovaries. There are some cystic changes near the cervix. Free fluid is seen. IMPRESSION: 1. Vascular flow seen to the ovaries. 2. There is some cystic changes near the cervix which could be from causes such as nabothian cysts. 3. Free fluid in the pelvis. This is most severe in the right adnexal region. Electronically signed by: Robert Cunha MD (01/27/2019 5:33 PM) [facility]
== END 2019-01-27 18:10 | disposition home or self-care (01) ==
LOC: ER 15:17
DX: N20.0 Calculus of kidney (principal); N83.201 Unspecified ovarian cyst, right side; B02.9 Zoster without complications; Z90.89 Acquired absence of other organs; Z90.49 Acquired absence of other specified parts of digestive tract; Z98.84 Bariatric surgery status; Z88.1 Allergy status to other antibiotic agents; Z88.5 Allergy status to narcotic agent; Z88.8 Allergy status to other drugs, medicaments and biological substances
CPT/HCPCS: 36415; 76856; 80053; 81001; 81025; 85025; 96374; 96375; 96376; 99284; J2405; J3010

== ENCOUNTER 2019-04-07 07:35 | Emergency (ER) | payer MEDICAID, OTHER ==
[~2019-04-07] VITALS: Ht 162.6 cm; Wt 61.7 kg
[2019-04-07 08:09] LABS: BILIRUBIN,URINE NEGATIVE (NEG); CLARITY,URINE HAZY; COLOR,URINE YELLOW
[2019-04-07 08:10] LABS: BACTERIA,URINE FEW /HPF (0-FEW); NITRITE,URINE NEGATIVE (NEG); PH,URINE 5.5; PROTEIN,URINE 100 mg/dL (NEG-TRACE); RBC,URINE 20-40 /HPF (0-2); UROBILINOGEN,URINE 0.2 mg/dL (0.2 mg/dL); WBC,URINE >40 /HPF (0-4)
[2019-04-07 08:11] LABS: SQUAMOUS EPITHELIAL CELL,UR MANY /LPF
[2019-04-07] MEDS ORDERED: KETOROLAC 30 MG/ML VIAL. IV ONE (08:15)
[2019-04-07] MEDS ORDERED: IV NORMAL SALINE 1000ML BAG 1,000 ML IV ONE ×2 (08:15→09:30)
[2019-04-07] MEDS ORDERED: ONDANSETRON PF 4 MG/2 ML VIAL. IV ONE (08:15)
[2019-04-07 08:38] LABS: BASO % 0 % (0-3); EOS # 0.2 x10^3/uL (0.0-0.7); EOS % 2 % (0-3); HEMATOCRIT 39.2 % (36.0-47.0); HEMOGLOBIN 13.3 g/dL (12.0-15.5); LYMPH # 2.4 x10^3/uL (1.0-4.8); LYMPH % 21 % (24-48); MEAN CORPUSCULAR HEMOGLOBIN 31 pg (25-35); MEAN CORPUSCULAR HGB CONC 34 g/dL (31-37); MEAN CORPUSCULAR VOLUME 91 fL (79-100); MONO # 0.5 x10^3/uL (0.0-1.1); MONO % 5 % (0-9); NEUT # 7.9 x10^3uL (1.8-7.7); NEUT % 72 % (31-73); PLATELET COUNT 168 x10^3/uL (140-400); RED BLOOD COUNT 4.31 x10^6/uL (3.50-5.40); RED CELL DISTRIBUTION WIDTH 12.7 % (11.5-14.5); WHITE BLOOD COUNT 11.1 x10^3/uL (4.0-11.0)
[2019-04-07 08:49] LABS: CALCIUM 8.4 mg/dL (8.5-10.1); CREATININE 0.9 mg/dL (0.6-1.0); GFR 70.8; POTASSIUM 3.5 mmol/L (3.5-5.1)
[2019-04-07 08:55] LABS: ALBUMIN 3.2 g/dL (3.4-5.0); ALBUMIN/GLOBULIN RATIO 0.9 (1.0-1.7); TOTAL BILIRUBIN 0.3 mg/dL (0.2-1.0); TOTAL PROTEIN 6.6 g/dL (6.4-8.2)
[2019-04-07] MEDS ORDERED: cefTRIAXone IV Push 1 GM VIAL. IVP ONE (09:30)
--- NOTE | 2019-04-07 09:35 | PHYS DOC ---
Past Medical History Past Medical History: Anxiety, Depression, Hypotension, Kidney Stone, UTI, Other Additional Past Medical Histor: CROHNS, PTSD, insomnia Past Surgical History: Appendectomy, Cholecystectomy, Tonsillectomy, Other Additional Past Surgical Histo: EGD; colonoscopy, Abdominal bypass, sinus, D&C, adenoidectomy Alcohol Use: Occasionally Drug Use: Marijuana Adult General Chief Complaint Chief Complaint: PAIN ON URINATION [facility] HPI Patient is a 38 year old female who presents with complaining of urinary problems. Patient complaining of suprapubic pain since yesterday as a constant pain with radiation to her back associated with urinary frequency and dysuria, more than 10 episodes of vomiting and constant nausea like her previous episodes of UTI. Patient states she had temperature of 99 yesterday. Patient denies vaginal bleeding or discharge, , shortness of breath or dizziness. Patient rated her pain 10 over 10. Review of Systems Review of Systems Constitutional: Denies fever or chills [] Eyes: Denies change in visual acuity, redness, or eye pain [] HENT: Denies nasal congestion or sore throat [] Respiratory: Denies cough or shortness of breath [] Cardiovascular: No additional information not addressed in HPI [] GI: Reports abdominal pain, nausea, vomiting, denies bloody stools or diarrhea [] : Denies dysuria or hematuria [] Musculoskeletal: Denies back pain or joint pain [] Integument: Denies rash or skin lesions [] Neurologic: Denies headache, focal weakness or sensory changes [] Endocrine: Denies polyuria or polydipsia [] All other systems were reviewed and found to be within normal limits, except as documented in this note. Current Medications Current Medications Current Medications Medications (Trade) Dose Ordered Sig/Adrianna Start Time Stop Time Status Last Admin Dose Admin Ceftriaxone Sodium (Rocephin) 1 gm 1X ONCE 04/07/19 09:30 04/07/19 09:31 DC 04/07/19 09:40 1 GM Ketorolac Tromethamine (Toradol 30mg Vial) 30 mg 1X ONCE 04/07/19 08:15 04/07/19 08:16 DC 04/07/19 08:27 30 MG Ondansetron HCl (Zofran) 4 mg 1X ONCE 04/07/19 08:15 04/07/19 08:16 DC 04/07/19 08:23 4 MG Sodium Chloride 1,000 ml @ 1,000 mls/hr 1X ONCE 04/07/19 09:30 04/07/19 10:29 DC 04/07/19 09:32 1,000 MLS/HR Allergies Allergies Allergies Coded Allergies Type Severity Reaction Last Updated Verified erythromycin base Allergy Intermediate Nausea and Vomiting 12/22/14 Yes morphine Allergy Intermediate "rash" but tolerates hydromorphone 01/29/15 Yes metoclopramide Allergy Unknown 01/27/19 Yes Physical Exam Physical Exam Constitutional: Well developed, well nourished, no acute distress, non-toxic appearance. [] HENT: Normocephalic, atraumatic, oropharynx moist, no oral exudates, nose normal. [] Eyes: PERRLA, EOMI, conjunctiva normal, no discharge. [] Neck: Normal range of motion, no tenderness, supple, no stridor. [] Cardiovascular:Heart rate regular rhythm, no murmur [] Lungs & Thorax: Bilateral breath sounds clear to auscultation [] Abdomen: Bowel sounds normal, soft, no tenderness, no masses, no pulsatile masses. [] Skin: Warm, dry, no erythema, no rash. [] Back: No tenderness, no CVA tenderness. [] Extremities: No tenderness, no cyanosis, no clubbing, ROM intact, no edema. [] Neurologic: Alert and oriented X 3, normal motor function, normal sensory function, no focal deficits noted. [] Psychologic: Affect normal, judgement normal, mood normal. [] Current Patient Data Vital Signs Vital Signs Date Time Temp Pulse Resp B/P (MAP) Pulse Ox O2 Delivery O2 Flow Rate FiO2 04/07/19 10:00 56 18 95/62 (73) 98 Room Air 04/07/19 07:45 97.5 97.5 Lab Values Laboratory Tests Test 04/07/19 07:40 04/07/19 07:56 04/07/19 08:15 Urine Collection Type Unknown Urine Color Yellow Urine Clarity Hazy Urine pH 5.5 Urine Specific Emma >=1.030 Urine Protein 100 mg/dL (NEG-TRACE) Urine Glucose (UA) Negative mg/dL (NEG) Urine Ketones (Stick) Negative mg/dL (NEG) Urine Blood Large (NEG) Urine Nitrite Negative (NEG) Urine Bilirubin Negative (NEG) Urine Urobilinogen Dipstick 0.2 mg/dL (0.2 mg/dL) Urine Leukocyte Esterase Moderate (NEG) Urine RBC 20-40 /HPF (0-2) Urine WBC >40 /HPF (0-4) Urine Squamous Epithelial Cells Many /LPF Urine Bacteria Few /HPF (0-FEW) Urine Opiates Screen Neg (NEG) Urine Methadone Screen Neg (NEG) Urine Barbiturates Neg (NEG) Urine Phencyclidine Screen Neg (NEG) Urine Amphetamine/Methamphetamine Neg (NEG) Urine Benzodiazepines Screen Neg (NEG) Urine Cocaine Screen Pos (NEG) Urine Cannabinoids Screen Pos (NEG) Urine Ethyl Alcohol Neg (NEG) POC Urine HCG, Qualitative Hcg negative (Negative) White Blood Count 11.1 x10^3/uL (4.0-11.0) H Red Blood Count 4.31 x10^6/uL (3.50-5.40) Hemoglobin 13.3 g/dL (12.0-15.5) Hematocrit 39.2 % (36.0-47.0) Mean Corpuscular Volume 91 fL (79-100) Mean Corpuscular Hemoglobin 31 pg (25-35) Mean Corpuscular Hemoglobin Concent 34 g/dL (31-37) Red Cell Distribution Width 12.7 % (11.5-14.5) Platelet Count 168 x10^3/uL (140-400) Neutrophils (%) (Auto) 72 % (31-73) Lymphocytes (%) (Auto) 21 % (24-48) L Monocytes (%) (Auto) 5 % (0-9) Eosinophils (%) (Auto) 2 % (0-3) Basophils (%) (Auto) 0 % (0-3) Neutrophils # (Auto) 7.9 x10^3uL (1.8-7.7) H Lymphocytes # (Auto) 2.4 x10^3/uL (1.0-4.8) Monocytes # (Auto) 0.5 x10^3/uL (0.0-1.1) Eosinophils # (Auto) 0.2 x10^3/uL (0.0-0.7) Basophils # (Auto) 0.0 x10^3/uL (0.0-0.2) Sodium Level 138 mmol/L (136-145) Potassium Level 3.5 mmol/L (3.5-5.1) Chloride Level 103 mmol/L (98-107) Carbon Dioxide Level 24 mmol/L (21-32) Anion Gap 11 (6-14) Blood Urea Nitrogen 14 mg/dL (7-20) Creatinine 0.9 mg/dL (0.6-1.0) Estimated GFR (Cockcroft-Gault) 70.8 BUN/Creatinine Ratio 16 (6-20) Glucose Level 96 mg/dL (70-99) Lactic Acid Level 0.8 mmol/L (0.4-2.0) Calcium Level 8.4 mg/dL (8.5-10.1) L Total Bilirubin 0.3 mg/dL (0.2-1.0) Aspartate Amino Transferase (AST) 14 U/L (15-37) L Alanine Aminotransferase (ALT) 18 U/L (14-59) Alkaline Phosphatase 51 U/L (46-116) Total Protein 6.6 g/dL (6.4-8.2) Albumin 3.2 g/dL (3.4-5.0) L Albumin/Globulin Ratio 0.9 (1.0-1.7) L Lipase 208 U/L (73-393) Laboratory Tests 04/07/19 08:15 Laboratory Tests 04/07/19 08:15 EKG EKG [] Radiology/Procedures Radiology/Procedures [] Course & Med Decision Making Course & Med Decision Making Pertinent Labs reviewed. (See chart for details) Evaluation of patient in ER showed 38-year-old male patient with UTI symptom and abdominal pain. Patient did not have nausea and vomiting and ER and looks comfortable but rated her pain 10 over 10. Patient treated with Toradol and IV fluid and Zofran. UA showed UTI without leukocytosis or sign of dehydration or electrolyte problem. Patient had blood pressure of asthma 70s over 50s and stated her blood pressure usually is up 90s. Patient asking for more pain medication but had positive cocaine and marijuana in UDS and was informed that she cannot have narcotic pain medication. discharge: I've spoken with the patient and/or caregivers. I've explained the patient's condition, diagnosis and treatment plan based on information available to me at this time. I've answered the patient's and/or caregivers questions and addressed any concerns. The patient and/or caregivers have a good understanding the patient's diagnosis, condition and treatment plan as can be expected at this point. Vital signs have been stabilized. The patient's condition is stable for discharge from the emergency department. The patient will pursue further outpatient evaluation with her primary care provider or other designated consulting physician as outlined in the discharge instructions. Patient and/or caregivers are agreeable to this plan of care and follow-up instructions have been explained in detail. The patient and/or careg monica have received these instructions in written format and expressed understanding of these discharge instructions. The patient and her caregivers are aware that if any significant change in condition or worsening of symptoms should prompt him to immediately return to this of the closest emergency department. If an emergent department is not readily available I would encourage him to call 911. Dragon Disclaimer Dragon Disclaimer This electronic medical record was generated, in whole or in part, using a voice recognition dictation system. Departure Departure Impression: Primary Impression: UTI (lower urinary tract infection) Additional Impressions: Abdominal pain Hypotension Nausea and vomiting Cocaine abuse Marijuana abuse Disposition: HOME, SELF-CARE (at 1007) Condition: IMPROVED Referrals: YARELI MORSE MD (PCP) Patient Instructions: Hypotension, Substance Abuse-Brief, Urinary Tract Infection Additional Instructions: Drink plenty of liquids Follow-up with your primary care physician in 3-5 days Return to ER if not getting better Scripts Phenazopyridine Hcl (PYRIDIUM) 100 Mg Tablet 100 MG PO TID for dysuria, #10 TAB Prov: LORE MCCLELLAN MD 04/07/19 Naproxen (NAPROSYN) 500 Mg Tablet 1 TAB PO BID for pain, #20 TAB Prov: LORE MCCLELLAN MD 04/07/19 Ondansetron Hcl (ZOFRAN) 4 Mg Tablet 1 TAB PO PRN Q6-8HRS, #12 TAB Prov: LORE MCCLELLAN MD 04/07/19 Sulfamethoxazole/Trimethoprim (BACTRIM DS TABLET) 1 Each Tablet 1 TAB PO BID for infection, #14 TAB Prov: LORE MCCLELLAN MD 04/07/19 Problem Qualifiers Additional Impressions: Abdominal pain Abdominal location: lower abdomen, unspecified Qualified Codes: R10.30 - Lower abdominal pain, unspecified Hypotension Hypotension type: unspecified hypotension type Qualified Codes: I95.9 - Hypotension, unspecified Nausea and vomiting Vomiting type: unspecified Vomiting Intractability: unspecified Qualified Codes: R11.2 - Nausea with vomiting, unspecified LORE MCCLELLAN MD Apr 07, 2019 09:35
[2019-04-07 09:40] LABS: BARBITURATES NEG (NEG); BENZODIAZEPINES NEG (NEG); CANNABINOIDS POS (NEG); COCAINE POS (NEG); METHADONE NEG (NEG); OPIATES NEG (NEG); PHENCYCLIDINE NEG (NEG)
[2019-04-07 09:42] LABS: AMPHETAMINE/METHAMPHETAMINE NEG (NEG)
[2019-04-07 10:00] VITALS: BP 95/62
[2019-04-07] MEDS ORDERED: ONDA4TAB7 PO (10:12)
[2019-04-07] MEDS ORDERED: SULF1TAB24 PO (10:12)
[2019-04-07] MEDS ORDERED: NAPR-683 PO (10:12)
[2019-04-07] MEDS ORDERED: PHEN100T82 PO (10:23)
--- NOTE | 2019-04-12 10:51 | NUR ---
Late entry made to Medical Record. IV Stop time transcribed from eMAR to IV spreadsheet
== END 2019-04-07 10:22 | disposition home or self-care (01) ==
LOC: ER 07:35
DX: N39.0 Urinary tract infection, site not specified (principal); R11.2 Nausea with vomiting, unspecified; I95.9 Hypotension, unspecified; F14.10 Cocaine abuse, uncomplicated; F12.10 Cannabis abuse, uncomplicated; K50.90 Crohn's disease, unspecified, without complications; I10 Essential (primary) hypertension; Z87.442 Personal history of urinary calculi; Z90.89 Acquired absence of other organs; Z90.49 Acquired absence of other specified parts of digestive tract; Z88.1 Allergy status to other antibiotic agents; Z88.5 Allergy status to narcotic agent; Z88.8 Allergy status to other drugs, medicaments and biological substances
CPT/HCPCS: 36415; 80053; 80307; 81001; 81025; 83605; 83690; 85025; 87086; 96361; 96374; 96375; 99284; J0696; J1885; J2405; J7030

== ENCOUNTER 2019-05-28 08:48 | Emergency (ER) | payer MEDICAID ==
[~2019-05-28] VITALS: Ht 160 cm; Wt 63.5 kg
[~2019-05-28 08:48] MED LIST changes: +NAPR-683 PO; +PHEN100T82 PO
[2019-05-28] MEDS ORDERED: IV NORMAL SALINE 1000ML BAG 1,000 ML IV SCH (09:02)
[2019-05-28] MEDS ORDERED: fentaNYL PF VIAL 100 MCG/2 ML VIAL IV ONE (09:15)
[2019-05-28] MEDS ORDERED: ONDANSETRON PF 4 MG/2 ML VIAL. IV ONE (09:15)
[2019-05-28] MEDS ORDERED: IPRATRPIUM/ALBUTEROL 0.5/2.5MG 3 ML NEBU. NEB ONE (09:15)
[2019-05-28 09:34] LABS: BILIRUBIN,URINE NEGATIVE (NEG); CLARITY,URINE CLEAR; COLOR,URINE YELLOW; NITRITE,URINE NEGATIVE (NEG); PH,URINE 5.5; PROTEIN,URINE NEGATIVE (NEG-TRACE); UROBILINOGEN,URINE 0.2 mg/dL (0.2 mg/dL)
[2019-05-28 09:40] LABS: CALCIUM 8.2 mg/dL (8.5-10.1); CREATININE 0.7 mg/dL (0.6-1.0); GFR 94.7; POTASSIUM 3.9 mmol/L (3.5-5.1)
[2019-05-28 09:43] LABS: BASO % 1 % (0-3); EOS # 0.2 x10^3/uL (0.0-0.7); EOS % 4 % (0-3); HEMATOCRIT 38.3 % (36.0-47.0); LYMPH # 2.1 x10^3/uL (1.0-4.8); LYMPH % 42 % (24-48); MEAN CORPUSCULAR HEMOGLOBIN 31 pg (25-35); MEAN CORPUSCULAR HGB CONC 34 g/dL (31-37); MEAN CORPUSCULAR VOLUME 91 fL (79-100); MONO # 0.5 x10^3/uL (0.0-1.1); MONO % 10 % (0-9); NEUT # 2.1 x10^3/uL (1.8-7.7); NEUT % 43 % (31-73); PLATELET COUNT 134 x10^3/uL (140-400); RED BLOOD COUNT 4.19 x10^6/uL (3.50-5.40); RED CELL DISTRIBUTION WIDTH 13.2 % (11.5-14.5)
[2019-05-28 09:54] LABS: ALBUMIN 3.1 g/dL (3.4-5.0); ALBUMIN/GLOBULIN RATIO 0.9 (1.0-1.7); TOTAL BILIRUBIN 0.3 mg/dL (0.2-1.0); TOTAL PROTEIN 6.4 g/dL (6.4-8.2)
[2019-05-28 09:56] LABS: RBC,URINE 0 /HPF (0-2)
[2019-05-28 09:57] LABS: BACTERIA,URINE MODERATE /HPF (0-FEW); SQUAMOUS EPITHELIAL CELL,UR MANY /LPF
--- NOTE | 2019-05-28 09:58 | PHYS DOC ---
Past Medical History Past Medical History: No Pertinent History, Anxiety, Depression, Hypotension, Kidney Stone, UTI, Other Additional Past Medical Histor: CROHNS, PTSD, insomnia Past Surgical History: Appendectomy, Cholecystectomy, Tonsillectomy, Other Additional Past Surgical Histo: EGD; colonoscopy, Abdominal bypass, sinus, D&C, adenoidectomy Alcohol Use: None Drug Use: Marijuana Adult General Chief Complaint Chief Complaint: NAUSEA/VOMITING/DIARR[facility] HPI HPI Patient is a 38 year old female who presents with complaining of nausea and vomiting. Patient states she has had nasal congestion, cough, earache and sore throat and sinus pain for the last 4 days and fever of 102 the first couple days. Patient states she had several episodes of vomiting since this morning and decided to come to the hospital while she was on her way to go to work. Patient rated her sinus pain 10 over 10 and denies abdominal pain, diarrhea, urinary symptom, . Patient has had frequent emergency room visits. Review of Systems Review of Systems Constitutional: Reports fever Eyes: Denies change in visual acuity, redness, or eye pain [] HENT: Reports nasal congestion, sore throat, sinus pain Respiratory: Reports cough Cardiovascular: No additional information not addressed in HPI [] GI: Denies abdominal pain, bloody stools or diarrhea, reports nausea and vomiting [] : Denies dysuria or hematuria [] Musculoskeletal: Denies back pain or joint pain [] Integument: Denies rash or skin lesions [] Neurologic: Denies headache, focal weakness or sensory changes [] Endocrine: Denies polyuria or polydipsia [] All other systems were reviewed and found to be within normal limits, except as documented in this note. Current Medications Current Medications Current Medications Medications (Trade) Dose Ordered Sig/[facility] Start Time Stop Time Status Last Admin Dose Admin Albuterol/ Ipratropium (Duoneb) 3 ml 1X ONCE 05/28/19 09:15 05/28/19 09:16 DC Fentanyl Citrate (Fentanyl 2ml Vial) 50 mcg 1X ONCE 05/28/19 09:15 05/28/19 09:16 DC 05/28/19 09:22 50 MCG Ondansetron HCl (Zofran) 4 mg 1X ONCE 05/28/19 09:15 05/28/19 09:16 DC 05/28/19 09:22 4 MG Sodium Chloride 1,000 ml @ 1,000 mls/hr Q1H 05/28/19 09:02 05/28/19 10:01 DC 05/28/19 09:22 1,000 MLS/HR Allergies Allergies Allergies Coded Allergies Type Severity Reaction Last Updated Verified erythromycin base Allergy Intermediate Nausea and Vomiting 12/22/14 Yes morphine Allergy Intermediate "rash" but tolerates hydromorphone 01/29/15 Yes metoclopramide Allergy Unknown 01/27/19 Yes Physical Exam Physical Exam Constitutional: Well developed, well nourished, mild distress, non-toxic appearance. [] HENT: Normocephalic, atraumatic, bilateral external ears normal, oropharynx moist, no oral exudates, nose normal, maxillary sinus mild tenderness. [] Eyes: PERRLA, EOMI, conjunctiva normal, no discharge. [] Neck: Normal range of motion, no tenderness, supple, no stridor. [] Cardiovascular:Heart rate regular rhythm, no murmur [] Lungs & Thorax: Bilateral breath sounds clear to auscultation [] Abdomen: Bowel sounds normal, soft, no tenderness, no masses, no pulsatile masses. [] Skin: Warm, dry, no erythema, no rash. [] Back: No tenderness, no CVA tenderness. [] Extremities: No tenderness, no cyanosis, no clubbing, ROM intact, no edema. [] Neurologic: Alert and oriented X 3, normal motor function, normal sensory funct ion, no focal deficits noted. [] Psychologic: Affect normal, judgement normal, mood normal. [] Current Patient Data Vital Signs Vital Signs Date Time Temp Pulse Resp B/P (MAP) Pulse Ox O2 Delivery O2 Flow Rate FiO2 05/28/19 10:35 131/62 (85) 05/28/19 09:26 96 Room Air 05/28/19 09:22 18 05/28/19 08:59 98.3 98.3 Lab Values Laboratory Tests Test 05/28/19 08:50 05/28/19 09:09 05/28/19 09:10 05/28/19 09:40 Urine Collection Type Unknown Urine Color Yellow Urine Clarity Clear Urine pH 5.5 Urine Specific [place] 1.020 Urine Protein Negative mg/dL (NEG-TRACE) Urine Glucose (UA) Negative mg/dL (NEG) Urine Ketones (Stick) Negative mg/dL (NEG) Urine Blood Negative (NEG) Urine Nitrite Negative (NEG) Urine Bilirubin Negative (NEG) Urine Urobilinogen Dipstick 0.2 mg/dL (0.2 mg/dL) Urine Leukocyte Esterase Small (NEG) Urine RBC 0 /HPF (0-2) Urine WBC 11-20 /HPF (0-4) Urine Squamous Epithelial Cells Many /LPF Urine Bacteria Moderate /HPF (0-FEW) Urine Opiates Screen Neg (NEG) Urine Methadone Screen Neg (NEG) Urine Barbiturates Neg (NEG) Urine Phencyclidine Screen Neg (NEG) Urine Amphetamine/Methamphetamine Neg (NEG) Urine Benzodiazepines Screen Pos (NEG) Urine Cocaine Screen Pos (NEG) Urine Cannabinoids Screen Pos (NEG) Urine Ethyl Alcohol Neg (NEG) POC Urine HCG, Qualitative Hcg negative (Negative) White Blood Count 5.0 x10^3/uL (4.0-11.0) Red Blood Count 4.19 x10^6/uL (3.50-5.40) Hemoglobin 13.0 g/dL (12.0-15.5) Hematocrit 38.3 % (36.0-47.0) Mean Corpuscular Volume 91 fL (79-100) Mean Corpuscular Hemoglobin 31 pg (25-35) Mean Corpuscular Hemoglobin Concent 34 g/dL (31-37) Red Cell Distribution Width 13.2 % (11.5-14.5) Platelet Count 134 x10^3/uL (140-400) L Neutrophils (%) (Auto) 43 % (31-73) Lymphocytes (%) (Auto) 42 % (24-48) Monocytes (%) (Auto) 10 % (0-9) H Eosinophils (%) (Auto) 4 % (0-3) H Basophils (%) (Auto) 1 % (0-3) Neutrophils # (Auto) 2.1 x10^3/uL (1.8-7.7) Lymphocytes # (Auto) 2.1 x10^3/uL (1.0-4.8) Monocytes # (Auto) 0.5 x10^3/uL (0.0-1.1) Eosinophils # (Auto) 0.2 x10^3/uL (0.0-0.7) Basophils # (Auto) 0.0 x10^3/uL (0.0-0.2) Sodium Level 141 mmol/L (136-145) Potassium Level 3.9 mmol/L (3.5-5.1) Chloride Level 107 mmol/L (98-107) Carbon Dioxide Level 25 mmol/L (21-32) Anion Gap 9 (6-14) Blood Urea Nitrogen 10 mg/dL (7-20) Creatinine 0.7 mg/dL (0.6-1.0) Estimated GFR (Cockcroft-Gault) 94.7 BUN/Creatinine Ratio 14 (6-20) Glucose Level 96 mg/dL (70-99) Lactic Acid Level 0.8 mmol/L (0.4-2.0) Calcium Level 8.2 mg/dL (8.5-10.1) L Total Bilirubin 0.3 mg/dL (0.2-1.0) Aspartate Amino Transferase (AST) 18 U/L (15-37) Alanine Aminotransferase (ALT) 18 U/L (14-59) Alkaline Phosphatase 55 U/L (46-116) Total Protein 6.4 g/dL (6.4-8.2) Albumin 3.1 g/dL (3.4-5.0) L Albumin/Globulin Ratio 0.9 (1.0-1.7) L Lipase 1491 U/L (73-393) H Prothrombin Time 23.7 SEC (11.7-14.0) H Prothrombin Time INR 2.1 (0.8-1.1) H Laboratory Tests 05/28/19 09:10 Laboratory Tests 05/28/19 09:10 EKG EKG [] Radiology/Procedures Radiology/Procedures Chest x-ray interpreted by me and did not show acute finding. Course & Med Decision Making Course & Med Decision Making Pertinent Labs and Imaging studies reviewed. (See chart for details) Evaluation of patient in ER showed 38-year-old female patient with history of frequent emergency room visits and substance abuse presented to ER with complaining of URI symptoms and nausea and vomiting. She looked comfortable but rated her pain 10 over 10. Patient treated with IV fluid, Zofran, fentanyl in ER. Patient did not have episodes of vomiting while she was in ER. Labs showed UTI with unremarkable white count and lactic acid and electrolytes. UDS was positive for benzo, marijuana and cocaine. Patient was informed about test results and plan of care but patient sounded unhappy about her diagnosis of UTI and having only one antibiotic for UTI and sinusitis. I explained again to the patient that Bactrim can cover sinusitis and UTI at the same time. I've spoken with the patient and/or caregivers. I've explained the patient's condition, diagnosis and treatment plan based on information available to me at this time. I've answered the patient's and/or caregivers questions and addressed any concerns. The patient and/or caregivers have a good understanding the patient's diagnosis, condition and treatment plan as can be expected at this point. Vital signs have been stabilized. The patient's condition is stable for discharge from the emergency department. The patient will pursue further outpatient evaluation with her primary care provider or other designated consulting physician as outlined in the discharge instructions. Patient and/or caregivers are agreeable to this plan of care and follow-up instructions have been explained in detail. The patient and/or caregivers have received these instructions in written format and expressed understanding of these discharge instructions. The patient and her caregivers are aware that if any significant change in condition or worsening of symptoms should prompt him to immediately return to this of the closest emergency department. If an emergent department is not readily available I would encourage him to call 911. [place] Disclaimer Dragon Disclaimer This electronic medical record was generated, in whole or in part, using a voice recognition dictation system. Departure Departure Impression: Primary Impression: Nausea and vomiting Additional Impressions: Upper respiratory infection Acute sinusitis UTI (lower urinary tract infection) Cocaine abuse Marijuana abuse Disposition: HOME, SELF-CARE (at 1006) Condition: STABLE Referrals: YARELI MORSE MD (PCP) Patient Instructions: Nausea and Vomiting, Sinusitis, Upper Respiratory Infection, Adult, Urinary Tract Infection Additional Instructions: Drink plenty of liquids Follow-up with your primary care physician in 3-5 days Return to ER if not getting better Scripts [Percogesic] No Conflict Check 1 TAB PO QID PRN for PAIN, #14 Prov: LORE MCCLELLAN MD 05/28/19 Ondansetron Hcl (ZOFRAN) 4 Mg Tablet 1 TAB PO PRN Q6-8HRS for nausea, #12 TAB Prov: LORE MCCLELLAN MD 05/28/19 Benzonatate (TESSALON PERLE) 100 Mg Capsule 1 CAP PO TID for cough, #21 CAP Prov: LORE MCCLELLAN MD 05/28/19 Sulfamethoxazole/Trimethoprim (BACTRIM DS TABLET) 1 Each Tablet 1 TAB PO BID for infection, #14 TAB Prov: LORE MCCLELLAN MD 05/28/19 Problem Qualifiers Primary Impression: Nausea and vomiting Vomiting type: unspecified Vomiting Intractability: unspecified Qualified Codes: R11.2 - Nausea with vomiting, unspecified Additional Impressions: Upper respiratory infection URI type: unspecified URI Qualified Codes: J06.9 - Acute upper respiratory infection, unspecified Acute sinusitis Sinusitis location: maxillary Recurrence: not specified as recurrent Qualified Codes: J01.00 - Acute maxillary sinusitis, unspecified LORE MCCLELLAN MD May 28, 2019 09:58
[2019-05-28] MEDS ORDERED: SULF1TAB24 PO (10:10)
[2019-05-28] MEDS ORDERED: BENZ100C PO (10:10)
[2019-05-28] MEDS ORDERED: Percogesic PO (10:10)
[2019-05-28] MEDS ORDERED: ONDA4TAB7 PO (10:10)
--- NOTE | 2019-05-28 10:11 | RAD ---
CHEST PA LATERAL History: Cough and congestion x4 days. Comparison: None. Findings: The cardiomediastinal silhouette is normal. Pulmonary vasculature is normal. The lungs are clear. No pleural effusion or pneumothorax is seen. There is no acute bone abnormality. IMPRESSION: No acute cardiopulmonary process. Electronically signed by: Edin Whiteside MD (05/28/2019 10:08 AM) [facility]
[2019-05-28 10:14] LABS: PROTHROMBIN TIME PATIENT 23.7 SEC (11.7-14.0)
[2019-05-28 10:23] LABS: BARBITURATES NEG (NEG); BENZODIAZEPINES POS (NEG); CANNABINOIDS POS (NEG); COCAINE POS (NEG); METHADONE NEG (NEG); OPIATES NEG (NEG); PHENCYCLIDINE NEG (NEG)
[2019-05-28 10:31] LABS: AMPHETAMINE/METHAMPHETAMINE NEG (NEG)
[2019-05-28 10:35] VITALS: BP 131/62
== END 2019-05-28 10:20 | disposition home or self-care (01) ==
LOC: ER 08:48
DX: R11.2 Nausea with vomiting, unspecified (principal); J06.9 Acute upper respiratory infection, unspecified; J01.00 Acute maxillary sinusitis, unspecified; N39.0 Urinary tract infection, site not specified; F12.20 Cannabis dependence, uncomplicated; F14.10 Cocaine abuse, uncomplicated; F41.9 Anxiety disorder, unspecified; F32.9 Major depressive disorder, single episode, unspecified; Z87.442 Personal history of urinary calculi; Z90.89 Acquired absence of other organs; Z90.49 Acquired absence of other specified parts of digestive tract; Z88.1 Allergy status to other antibiotic agents; Z88.5 Allergy status to narcotic agent; Z88.8 Allergy status to other drugs, medicaments and biological substances
CPT/HCPCS: 36415; 71046; 80053; 80307; 81001; 81025; 83605; 83690; 85025; 85610; 87086; 94640; 96361; 96374; 96375; 99285; J2405; J3010; J7030

== ENCOUNTER 2019-07-28 08:03 | Emergency (ER) | payer MEDICAID ==
[~2019-07-28] VITALS: Ht 162.6 cm; Wt 63.5 kg
[~2019-07-28 08:03] MED LIST changes: +BENZ100C PO; +Percogesic PO
[2019-07-28] MEDS ORDERED: IV NORMAL SALINE 1000ML BAG 1,000 ML IV SCH (08:21)
[2019-07-28] MEDS ORDERED: ONDANSETRON PF 4 MG/2 ML VIAL. IVP ONE (08:30)
[2019-07-28] MEDS ORDERED: KETOROLAC 30 MG/ML VIAL. IV ONE (08:30)
[2019-07-28] MEDS ORDERED: KETOROLAC 30 MG/ML VIAL. ONE (08:32)
[2019-07-28] MEDS ORDERED: ONDANSETRON PF 4 MG/2 ML VIAL. ONE (08:32)
--- NOTE | 2019-07-28 08:34 | PHYS DOC ---
Past Medical History Past Medical History: No Pertinent History, Anxiety, Depression, Hypotension, Kidney Stone, UTI, Other Additional Past Medical Histor: CROHNS, PTSD, insomnia Past Surgical History: Appendectomy, Cholecystectomy, Tonsillectomy, Other Additional Past Surgical Histo: EGD; colonoscopy, Abdominal bypass, sinus, D&C, adenoidectomy Alcohol Use: None Drug Use: Marijuana Adult General Chief Complaint Chief Complaint: ABDOMINAL PAIN HPI HPI Patient is a 38-year-old female who presents to the emergency department for evaluation. She states that for the past week or so she has had generalized abdominal pain, along with some nausea and vomiting. The pain is mostly in her right lower abdomen, primarily in her pelvis area actually. She states she has had similar problems in the past, both of her kidneys and with ovarian cysts. Her LMP was in the middle of June. She denies that she is . She has not had any hematemesis. She has not had any significant amounts of diarrhea. She has had a prior appendectomy and cholecystectomy. her chart states that she has a history of Crohn's disease, something which the patient states she has been told as well, although it seems that her mother has Crohn's disease and according to her GI consult earlier this year, the diagnosis of Crohn's disease was never confirmed. She does have a history of renal stones, and had a nonobstructive right renal stone on CT earlier this year. There are no alleviating or exacerbating factors to her symptoms otherwise. Review of Systems Review of Systems Constitutional: Denies fever or chills [] Eyes: Denies change in visual acuity [] HENT: Denies nasal congestion or sore throat [] Respiratory: Denies cough or shortness of breath [] Cardiovascular: The patient denies any shortness of breath, chest pain, palpitations, or orthopnea [] GI:No additional information not addressed in HPI [] : Denies dysuria or hematuria [] Musculoskeletal: Denies back pain or joint pain [] Integument: Denies rash or skin lesions [] Neurologic: Denies headache, focal weakness or sensory changes [] Endocrine: Denies polyuria or polydipsia [] All other systems were reviewed and found to be within normal limits, except as documented in this note. Current Medications Current Medications Current Medications Medications (Trade) Dose Ordered Sig/Adrianna Start Time Stop Time Status Last Admin Dose Admin Acetaminophen/ Hydrocodone Bitart (Lortab 5/325) 1 tab 1X ONCE 07/28/19 09:15 07/28/19 09:16 DC 07/28/19 10:04 1 TAB Ceftriaxone Sodium (Rocephin) 1 gm STK-MED ONCE 07/28/19 10:02 07/28/19 10:02 DC Hydromorphone HCl (Dilaudid) 0.5 mg 1X ONCE 07/28/19 09:15 07/28/19 09:16 DC 07/28/19 09:16 0.5 MG Ketorolac Tromethamine (Toradol 30mg Vial) 30 mg STK-MED ONCE 07/28/19 08:32 07/28/19 08:33 DC Ondansetron HCl (Zofran) 4 mg 1X ONCE 07/28/19 08:45 07/28/19 08:46 DC 07/28/19 09:14 4 MG Sodium Chloride 1,000 ml @ 1,000 mls/hr Q1H 07/28/19 08:21 07/28/19 09:20 DC 07/28/19 08:36 1,000 MLS/HR Allergies Allergies Allergies Coded Allergies Type Severity Reaction Last Updated Verified erythromycin base Allergy Intermediate Nausea and Vomiting 12/22/14 Yes morphine Allergy Intermediate "rash" but tolerates hydromorphone 01/29/15 Yes metoclopramide Allergy Unknown 01/27/19 Yes Physical Exam Physical Exam PHYSICAL EXAM: CONSTITUTIONAL: Well developed, well nourished HEAD: normocephalic, atraumatic EENT: PERRL, EOMI. Conjunctivae normal color, sclerae non-icteric; moist mucous membranes. NECK: Supple, non-tender; no meningismus. LUNGS: Lungs CTA, breathing even and unlabored. Normal air movement. HEART: Regular rate and rhythm, no murmur CHEST: No deformity; non-tender ABDOMEN: The abdomen is soft, there is mild diffuse tenderness to palpation of the entire abdomen, most prominent in the right suprapubic area, without rebound or guarding, normal bowel sounds are present,no masses or bruits. EXTREM: Normal ROM; no deformity, no calf tenderness. Normal pulses palpable in all extremities. There is no pedal edema. SKIN: No rash; no diaphoresis NEURO: Alert; normal speech and cognition; CN's grossly intact; strength grossly intact without focal deficit. BACK: There is mild bilateral CVA TTP, right greater than left. PELVIC EXAM: Normal external genitalia. There is a small amount of thin white frothy vaginal discharge. There is no cervical motion tenderness. There is mild diffuse pelvic tenderness to palpation, although the patient's abdominal tenderness in the right lower abdomen is more pronounced than her pelvic tenderness on exam. Exam was performed in the presence of the Mallika charge nurse. Current Patient Data Vital Signs Vital Signs Date Time Temp Pulse Resp B/P (MAP) Pulse Ox O2 Delivery O2 Flow Rate FiO2 07/28/19 10:04 Room Air 07/28/19 09:40 2 18 107/66 (80) 92 07/28/19 08:05 98.5 98.5 Lab Values Laboratory Tests Test 07/28/19 08:20 07/28/19 08:24 White Blood Count 6.2 x10^3/uL (4.0-11.0) Red Blood Count 4.50 x10^6/uL (3.50-5.40) Hemoglobin 14.0 g/dL (12.0-15.5) Hematocrit 40.5 % (36.0-47.0) Mean Corpuscular Volume 90 fL (79-100) Mean Corpuscular Hemoglobin 31 pg (25-35) Mean Corpuscular Hemoglobin Concent 35 g/dL (31-37) Red Cell Distribution Width 12.9 % (11.5-14.5) Platelet Count 146 x10^3/uL (140-400) Neutrophils (%) (Auto) 57 % (31-73) Lymphocytes (%) (Auto) 33 % (24-48) Monocytes (%) (Auto) 9 % (0-9) Eosinophils (%) (Auto) 1 % (0-3) Basophils (%) (Auto) 0 % (0-3) Neutrophils # (Auto) 3.6 x10^3/uL (1.8-7.7) Lymphocytes # (Auto) 2.0 x10^3/uL (1.0-4.8) Monocytes # (Auto) 0.6 x10^3/uL (0.0-1.1) Eosinophils # (Auto) 0.1 x10^3/uL (0.0-0.7) Basophils # (Auto) 0.0 x10^3/uL (0.0-0.2) Erythrocyte Sedimentation Rate 7 (0-25) Urine Collection Type Unknown Urine Color Mcintosh Urine Clarity Clear Urine pH 6.0 Urine Specific [place] 1.025 Urine Protein Negative mg/dL (NEG-TRACE) Urine Glucose (UA) Negative mg/dL (NEG) Urine Ketones (Stick) Negative mg/dL (NEG) Urine Blood Small (NEG) Urine Nitrite Positive (NEG) Urine Bilirubin Negative (NEG) Urine Urobilinogen Dipstick 1.0 mg/dL (0.2 mg/dL) Urine Leukocyte Esterase Large (NEG) Urine RBC 3-5 /HPF (0-2) Urine WBC >40 /HPF (0-4) Urine Squamous Epithelial Cells Many /LPF Urine Bacteria Moderate /HPF (0-FEW) Urine Mucus Marked /LPF Sodium Level 142 mmol/L (136-145) Potassium Level 3.7 mmol/L (3.5-5.1) Chloride Level 106 mmol/L (98-107) Carbon Dioxide Level 26 mmol/L (21-32) Anion Gap 10 (6-14) Blood Urea Nitrogen 8 mg/dL (7-20) Creatinine 0.8 mg/dL (0.6-1.0) Estimated GFR (Cockcroft-Gault) 81.2 BUN/Creatinine Ratio 10 (6-20) Glucose Level 86 mg/dL (70-99) Calcium Level 8.8 mg/dL (8.5-10.1) Total Bilirubin 0.4 mg/dL (0.2-1.0) Aspartate Amino Transferase (AST) 37 U/L (15-37) Alanine Aminotransferase (ALT) 33 U/L (14-59) Alkaline Phosphatase 55 U/L (46-116) C-Reactive Protein, Quantitative < 0.5 mg/L (0-3.3) Total Protein 7.5 g/dL (6.4-8.2) Albumin 4.0 g/dL (3.4-5.0) Albumin/Globulin Ratio 1.1 (1.0-1.7) Lipase 535 U/L (73-393) H POC Urine HCG, Qualitative Hcg negative (Negative) Laboratory Tests 07/28/19 08:20 Laboratory Tests 07/28/19 08:20 Microbiology 07/28/19 Wet Prep - Final, Complete Microbiology 07/28/19 Wet Prep - Final, Complete WET PREP Final YEAST NONE SEEN TRICHOMONAS NONE SEEN CLUE CELLS CLUE CELLS PRESENT ALTERED DORIS ALTERED DORIS PRESENT SUGGESTIVE OF BACTERIAL VAGINOSIS WBCS MANY SQUAMOUS EPS MANY EKG EKG [] Radiology/Procedures Radiology/Procedures []PROCEDURE: PELVIS W/TV EXAM: Pelvic sonogram. HISTORY: Pain. TECHNIQUE: Transabdominal and transvaginal sonographic imaging of the pelvis was performed. COMPARISON: For 2018. FINDINGS: The uterus measures 7.9 x 4.7 x 4.1 cm. The endometrial stripe measures 7 mm in thickness. The ovaries are normal in size and demonstrate normal blood flow. There are small ovarian follicles, with a dominant follicle on the left measuring 1.2 cm. There is a small amount of simple free fluid within the right adnexa. IMPRESSION: 1. Dominant left ovarian follicle measuring 1.2 cm and small amount of nonspecific free fluid within the right adnexa, within physiologic limits. 2. Sonographically unremarkable uterus and endometrial stripe. REASON: flank pain, r/o obstructive uropathy PROCEDURE: RENAL COMPLETE BILATERAL Renal sonography Clinical indications: Flank pain. Abdominal pain. FINDINGS: The longitudinal AP and transverse dimensions of the right kidney are 10.0 cm and 4.7 cm and 4.8 cm respectively. The longitudinal and AP and transverse dimensions of the left kidney are 9.9 cm and 5.5 cm and 5.7 cm respectively. The urinary bladder is empty. The patient voided prior to the sonogram. No focal aneurysmal dilatation of the abdominal aorta is seen. The intrahepatic portion of the IVC is patent. IMPRESSION: Unremarkable renal sonogram. No hydronephrosis. Course & Med Decision Making Course & Med Decision Making Pertinent Labs and Imaging studies reviewed. (See chart for details) []10:20 AM:Pt remains stable and she is feeling much better. I discussed importance of close PCP follow-up, and return precautions. Pt's lipase is noted to the mildly elevated although her exam and presentation are not consistent with acute pancreatitis, she has had pancreatitis a few months ago, her lipase is lower than that level. The importance of close outpatient follow-up was discussed. Dragon Disclaimer Dragon Disclaimer This electronic medical record was generated, in whole or in part, using a voice recognition dictation system. Departure Departure Impression: Primary Impression: UTI (lower urinary tract infection) Additional Impressions: Abdominal pain Bacterial vaginosis Disposition: 01 HOME, SELF-CARE Condition: STABLE Referrals: YARELI MORSE MD (PCP) Patient Instructions: Abdominal Pain, Bacterial Vaginosis, Urinary Tract Infection Scripts Ondansetron Hcl (ZOFRAN) 4 Mg Tablet 1 TAB PO Q6HRS PRN for NAUSEA/VOMITING, #20 TAB Prov: MAXIMILIANO FRANCO MD 07/28/19 Diclofenac Sodium (DICLOFENAC SODIUM) 50 Mg Tablet.dr 1 TAB PO BID, #20 TAB 0 Refills Prov: MAXIMILIANO FRANCO MD 07/28/19 Metronidazole (FLAGYL) 500 Mg Tablet 1 TAB PO BID, #14 TAB Prov: MAXIMILIANO FRANCO MD 07/28/19 Sulfamethoxazole/Trimethoprim (BACTRIM DS TABLET) 1 Each Tablet 1 TAB PO BID, #14 TAB Prov: MAXIMILIANO FRANCO MD 07/28/19 Problem Qualifiers MAXIMILIANO FRANCO MD Jul 28, 2019 08:34
[2019-07-28 08:41] LABS: BILIRUBIN,URINE NEGATIVE (NEG); CLARITY,URINE CLEAR; COLOR,URINE ORANGE; NITRITE,URINE POSITIVE (NEG); PROTEIN,URINE NEGATIVE (NEG-TRACE)
[2019-07-28 08:42] LABS: BASO % 0 % (0-3); EOS # 0.1 x10^3/uL (0.0-0.7); EOS % 1 % (0-3); HEMATOCRIT 40.5 % (36.0-47.0); LYMPH % 33 % (24-48); MEAN CORPUSCULAR HEMOGLOBIN 31 pg (25-35); MEAN CORPUSCULAR HGB CONC 35 g/dL (31-37); MEAN CORPUSCULAR VOLUME 90 fL (79-100); MONO # 0.6 x10^3/uL (0.0-1.1); MONO % 9 % (0-9); NEUT # 3.6 x10^3/uL (1.8-7.7); NEUT % 57 % (31-73); PLATELET COUNT 146 x10^3/uL (140-400); RED CELL DISTRIBUTION WIDTH 12.9 % (11.5-14.5); WHITE BLOOD COUNT 6.2 x10^3/uL (4.0-11.0)
[2019-07-28] MEDS ORDERED: ONDANSETRON PF 4 MG/2 ML VIAL. IV ONE (08:45)
[2019-07-28 08:50] LABS: CALCIUM 8.8 mg/dL (8.5-10.1); CREATININE 0.8 mg/dL (0.6-1.0); GFR 81.2; POTASSIUM 3.7 mmol/L (3.5-5.1)
[2019-07-28 08:56] LABS: ALBUMIN/GLOBULIN RATIO 1.1 (1.0-1.7); BACTERIA,URINE MODERATE /HPF (0-FEW); SQUAMOUS EPITHELIAL CELL,UR MANY /LPF; TOTAL BILIRUBIN 0.4 mg/dL (0.2-1.0); TOTAL PROTEIN 7.5 g/dL (6.4-8.2); WBC,URINE >40 /HPF (0-4)
[2019-07-28] MEDS ORDERED: HYDROmorphone 2 MG/ML VIAL IV ONE (09:15)
[2019-07-28] MEDS ORDERED: HYDROcodone/APAP 5/325MG 1 TAB TABLET PO ONE (09:15)
--- NOTE | 2019-07-28 09:17 | RAD ---
Renal sonography Clinical indications: Flank pain. Abdominal pain. FINDINGS: The longitudinal AP and transverse dimensions of the right kidney are 10.0 cm and 4.7 cm and 4.8 cm respectively. The longitudinal and AP and transverse dimensions of the left kidney are 9.9 cm and 5.5 cm and 5.7 cm respectively. The urinary bladder is empty. The patient voided prior to the sonogram. No focal aneurysmal dilatation of the abdominal aorta is seen. The intrahepatic portion of the IVC is patent. IMPRESSION: Unremarkable renal sonogram. No hydronephrosis. Electronically signed by: Neo Gupta MD (07/28/2019 9:14 AM) [id number]
--- NOTE | 2019-07-28 09:26 | RAD ---
EXAM: Pelvic sonogram. HISTORY: Pain. TECHNIQUE: Transabdominal and transvaginal sonographic imaging of the pelvis was performed. COMPARISON: For 2018. FINDINGS: The uterus measures 7.9 x 4.7 x 4.1 cm. The endometrial stripe measures 7 mm in thickness. The ovaries are normal in size and demonstrate normal blood flow. There are small ovarian follicles, with a dominant follicle on the left measuring 1.2 cm. There is a small amount of simple free fluid within the right adnexa. IMPRESSION: 1. Dominant left ovarian follicle measuring 1.2 cm and small amount of nonspecific free fluid within the right adnexa, within physiologic limits. 2. Sonographically unremarkable uterus and endometrial stripe. Electronically signed by: Joy Schneider MD (07/28/2019 9:23 AM) [facility]
[2019-07-28] MEDS ORDERED: cefTRIAXone IV Push 1 GM VIAL. IVP ONE ×2 (09:30→10:02)
[2019-07-28 09:40] VITALS: BP 107/66
[2019-07-28] MEDS ORDERED: SULF1TAB24 PO (10:06)
[2019-07-28] MEDS ORDERED: METR500T PO (10:06)
[2019-07-28] MEDS ORDERED: ONDA4TAB7 PO (10:25)
[2019-07-28] MEDS ORDERED: DICL50TA4 PO (10:25)
[2019-07-29 18:09] LABS: GC PROBE Negative (Negative)
== END 2019-07-28 10:36 | disposition home or self-care (01) ==
LOC: ER 08:03
DX: N39.0 Urinary tract infection, site not specified (principal); N76.0 Acute vaginitis; B96.89 Other specified bacterial agents as the cause of diseases classified elsewhere; F41.9 Anxiety disorder, unspecified; F32.9 Major depressive disorder, single episode, unspecified; Z90.89 Acquired absence of other organs; Z90.49 Acquired absence of other specified parts of digestive tract; Z88.1 Allergy status to other antibiotic agents; Z88.5 Allergy status to narcotic agent; Z88.8 Allergy status to other drugs, medicaments and biological substances
CPT/HCPCS: 36415; 76770; 76830; 76856; 80053; 81001; 81025; 83690; 85025; 85651; 86140; 87086; 87491; 87591; 96361; 96374; 96375; 96376; 99285; J0696; J1170; J1885; J2405; J7030; Q0111

== ENCOUNTER 2019-08-22 20:09 | Emergency (ER) | payer MEDICAID ==
[~2019-08-22] VITALS: Ht 160 cm; Wt 65.8 kg
[~2019-08-22 20:09] MED LIST changes: +DICL50TA4 PO; +METR500T PO
[2019-08-22 20:34] LABS: BILIRUBIN,URINE MODERATE (NEG); CLARITY,URINE TURBID; COLOR,URINE RED; NITRITE,URINE POSITIVE (NEG); PROTEIN,URINE 100 mg/dL (NEG-TRACE); UROBILINOGEN,URINE >=8.0 mg/dL (0.2 mg/dL)
[2019-08-22 20:46] LABS: BACTERIA,URINE MODERATE /HPF (0-FEW); RBC,URINE TNTC /HPF (0-2); SQUAMOUS EPITHELIAL CELL,UR OCC /LPF
[2019-08-22] MEDS ORDERED: IV NORMAL SALINE 1000ML BAG 1,000 ML IV SCH (21:02)
[2019-08-22 21:09] LABS: U PREG PATIENT NEGATIVE (NEG)
[2019-08-22 21:10] LABS: BASO % 1 % (0-3); EOS # 0.1 x10^3/uL (0.0-0.7); EOS % 2 % (0-3); HEMATOCRIT 41.8 % (36.0-47.0); HEMOGLOBIN 14.1 g/dL (12.0-15.5); LYMPH % 24 % (24-48); MEAN CORPUSCULAR HEMOGLOBIN 31 pg (25-35); MEAN CORPUSCULAR HGB CONC 34 g/dL (31-37); MEAN CORPUSCULAR VOLUME 91 fL (79-100); MONO # 0.7 x10^3/uL (0.0-1.1); MONO % 8 % (0-9); NEUT # 5.3 x10^3/uL (1.8-7.7); NEUT % 65 % (31-73); PLATELET COUNT 143 x10^3/uL (140-400); RED BLOOD COUNT 4.61 x10^6/uL (3.50-5.40); RED CELL DISTRIBUTION WIDTH 13.1 % (11.5-14.5); WHITE BLOOD COUNT 8.2 x10^3/uL (4.0-11.0)
[2019-08-22] MEDS ORDERED: HYDROcodone/APAP 5/325MG 1 TAB TABLET PO ONE (21:15)
[2019-08-22] MEDS ORDERED: ONDANSETRON PF 4 MG/2 ML VIAL. IV ONE (21:15)
[2019-08-22 21:19] LABS: BARBITURATES NEG (NEG); BENZODIAZEPINES NEG (NEG); CANNABINOIDS POS (NEG); COCAINE POS (NEG); METHADONE NEG (NEG); OPIATES NEG (NEG); PHENCYCLIDINE NEG (NEG)
[2019-08-22 21:20] LABS: CALCIUM 8.7 mg/dL (8.5-10.1); CREATININE 0.9 mg/dL (0.6-1.0); GFR 70.8; POTASSIUM 3.7 mmol/L (3.5-5.1)
[2019-08-22 21:22] LABS: AMPHETAMINE/METHAMPHETAMINE NEG (NEG)
--- NOTE | 2019-08-22 21:26 | PHYS DOC ---
Past Medical History Past Medical History: Anxiety, Depression, Hypotension, Kidney Stone, UTI, Other Additional Past Medical Histor: CROHNS, PTSD, insomnia Past Surgical History: Appendectomy, Cholecystectomy, Tonsillectomy, Other Additional Past Surgical Histo: EGD; colonoscopy, Abdominal bypass, sinus, D&C, adenoidectomy Alcohol Use: None Drug Use: Marijuana Adult General Chief Complaint Chief Complaint: BLOOD IN URINE [facility] HPI Patient is a 38 year old female with history of PTSD, anxiety, frequent UTI and cocaine and marijuana abuse who presents with complaining of bloody urine. Patient complaining of hematuria and dysuria since this morning and more than 10 episodes of nonbloody vomiting and lower abdominal pain since this afternoon. Complaining of feeling episodes of diarrhea. Patient states her LMP was early July and not sure about . Patient denies vaginal bleeding, fever and chills, sick contact. Patient states she had the same problem previously with kidney stone or UTI. Patient denies using cocaine and marijuana since she was in the college in her 20s. Review of Systems Review of Systems Constitutional: Denies fever or chills [] Eyes: Denies change in visual acuity, redness, or eye pain [] HENT: Denies nasal congestion or sore throat [] Respiratory: Denies cough or shortness of breath [] Cardiovascular: No additional information not addressed in HPI [] GI: Reports abdominal pain, nausea, vomiting, diarrhea [] : Dysuria and hematuria Musculoskeletal: Denies back pain or joint pain [] Integument: Denies rash or skin lesions [] Neurologic: Denies headache, focal weakness or sensory changes [] Endocrine: Denies polyuria or polydipsia [] All other systems were reviewed and found to be within normal limits, except as documented in this note. Current Medications Current Medications Current Medications Medications (Trade) Dose Ordered Sig/Adrianna Start Time Stop Time Status Last Admin Dose Admin Acetaminophen/ Hydrocodone Bitart (Lortab 5/325) 1 tab 1X ONCE 08/22/19 21:15 08/22/19 21:16 DC Ceftriaxone Sodium (Rocephin) 1 gm 1X ONCE 08/22/19 22:15 08/22/19 22:16 DC Ondansetron HCl (Zofran) 4 mg 1X ONCE 08/22/19 21:15 08/22/19 21:16 DC 08/22/19 21:25 4 MG Sodium Chloride 1,000 ml @ 100 mls/hr Q10H 08/22/19 21:02 08/22/19 22:18 DC 08/22/19 21:25 100 MLS/HR Allergies Allergies Allergies Coded Allergies Type Severity Reaction Last Updated Verified erythromycin base Allergy Intermediate Nausea and Vomiting 12/22/14 Yes morphine Allergy Intermediate "rash" but tolerates hydromorphone 01/29/15 Yes metoclopramide Allergy Unknown 01/27/19 Yes Physical Exam Physical Exam Constitutional: Well developed, well nourished, mild distress, non-toxic appearance. [] HENT: Normocephalic, atraumatic. Eyes: PERRLA, EOMI, conjunctiva normal, no discharge. [] Neck: Normal range of motion, no tenderness, supple, no stridor. [] Cardiovascular:Heart rate regular rhythm, no murmur [] Lungs & Thorax: Bilateral breath sounds clear to auscultation [] Abdomen: Bowel sounds normal, soft, no tenderness, no masses, no pulsatile masses. [] Skin: Warm, dry, no erythema, no rash. [] Back: No tenderness, no CVA tenderness. [] Extremities: No tenderness, no cyanosis, no clubbing, ROM intact, no edema. [] Neurologic: Alert and oriented X 3, no focal deficits noted. [] Psychologic: Affect anxious, judgement normal, mood normal. [] Current Patient Data Vital Signs Vital Signs Date Time Temp Pulse Resp B/P (MAP) Pulse Ox O2 Delivery O2 Flow Rate FiO2 08/22/19 20:21 98.3 78 15 102/74 (83) 100 Room Air 98.3 Lab Values Laboratory Tests Test 08/22/19 20:18 08/22/19 21:00 Urine Color Red Urine Clarity Turbid Urine pH 5.0 Urine Specific [place] 1.025 Urine Protein 100 mg/dL (NEG-TRACE) Urine Glucose (UA) Negative mg/dL (NEG) Urine Ketones (Stick) 40 mg/dL (NEG) Urine Blood Large (NEG) Urine Nitrite Positive (NEG) Urine Bilirubin Moderate (NEG) Urine Urobilinogen Dipstick >=8.0 mg/dL (0.2 mg/dL) Urine Leukocyte Esterase Large (NEG) Urine RBC Tntc /HPF (0-2) Urine WBC 11-20 /HPF (0-4) Urine Squamous Epithelial Cells Occ /LPF Urine Bacteria Moderate /HPF (0-FEW) Urine Mucus Slight /LPF Urine Test Negative (NEG) Urine Opiates Screen Neg (NEG) Urine Methadone Screen Neg (NEG) Urine Barbiturates Neg (NEG) Urine Phencyclidine Screen Neg (NEG) Urine Amphetamine/Methamphetamine Neg (NEG) Urine Benzodiazepines Screen Neg (NEG) Urine Cocaine Screen Pos (NEG) Urine Cannabinoids Screen Pos (NEG) Urine Ethyl Alcohol Neg (NEG) White Blood Count 8.2 x10^3/uL (4.0-11.0) Red Blood Count 4.61 x10^6/uL (3.50-5.40) Hemoglobin 14.1 g/dL (12.0-15.5) Hematocrit 41.8 % (36.0-47.0) Mean Corpuscular Volume 91 fL (79-100) Mean Corpuscular Hemoglobin 31 pg (25-35) Mean Corpuscular Hemoglobin Concent 34 g/dL (31-37) Red Cell Distribution Width 13.1 % (11.5-14.5) Platelet Count 143 x10^3/uL (140-400) Neutrophils (%) (Auto) 65 % (31-73) Lymphocytes (%) (Auto) 24 % (24-48) Monocytes (%) (Auto) 8 % (0-9) Eosinophils (%) (Auto) 2 % (0-3) Basophils (%) (Auto) 1 % (0-3) Neutrophils # (Auto) 5.3 x10^3/uL (1.8-7.7) Lymphocytes # (Auto) 2.0 x10^3/uL (1.0-4.8) Monocytes # (Auto) 0.7 x10^3/uL (0.0-1.1) Eosinophils # (Auto) 0.1 x10^3/uL (0.0-0.7) Basophils # (Auto) 0.0 x10^3/uL (0.0-0.2) Sodium Level 141 mmol/L (136-145) Potassium Level 3.7 mmol/L (3.5-5.1) Chloride Level 105 mmol/L (98-107) Carbon Dioxide Level 24 mmol/L (21-32) Anion Gap 12 (6-14) Blood Urea Nitrogen 14 mg/dL (7-20) Creatinine 0.9 mg/dL (0.6-1.0) Estimated GFR (Cockcroft-Gault) 70.8 BUN/Creatinine Ratio 16 (6-20) Glucose Level 87 mg/dL (70-99) Calcium Level 8.7 mg/dL (8.5-10.1) Total Bilirubin 1.0 mg/dL (0.2-1.0) Aspartate Amino Transferase (AST) 23 U/L (15-37) Alanine Aminotransferase (ALT) 18 U/L (14-59) Alkaline Phosphatase 39 U/L (46-116) L Total Protein 7.3 g/dL (6.4-8.2) Albumin 3.8 g/dL (3.4-5.0) Albumin/Globulin Ratio 1.1 (1.0-1.7) Lipase 89 U/L (73-393) Laboratory Tests 08/22/19 21:00 Laboratory Tests 08/22/19 21:00 EKG EKG [] Radiology/Procedures Radiology/Procedures [] Course & Med Decision Making Course & Med Decision Making Pertinent Labs reviewed. (See chart for details) Evaluation of patient in ER showed 38-year-old female patient presented to ER with complaining of nausea and vomiting and urinary symptom. Patient had history of the same problem and frequent emergency room visits and drug-seeking behavior. Patient states that she usually gets Dilaudid and morphine in ER. According to allergies she is allergic to morphine. Patient was tearful and denied using any drugs and getting very anxious with questioning about illegal drug abuse. Patient asking me to talk to her mother who was on face time with her who wanted work her up for frequent UTI and give her strong pain me dication. Patient refused to take [place] and became upset that getting Dilaudid and left AMA while I was working on her discharge. Dragon Disclaimer Dragon Disclaimer This electronic medical record was generated, in whole or in part, using a voice recognition dictation system. Departure Departure Impression: Primary Impression: Recurrent urinary tract infection Additional Impressions: Cocaine abuse Marijuana abuse Anxiety Drug-seeking behavior Disposition: HOME, SELF-CARE (at 2213) Condition: STABLE Referrals: YARELI MORSE MD (PCP) Patient Instructions: Urinary Tract Infection Additional Instructions: Drink plenty of liquids Follow-up with your primary care physician in 3-5 days Return to ER if not getting better Follow-up with your urologist regarding tachycardia with urinary tract infection Scripts Cephalexin (KEFLEX) 500 Mg Capsule 2 CAP PO Q12HR, #40 CAP Prov: LORE MCCLELLAN MD 08/22/19 Problem Qualifiers LORE MCCLELLAN MD Aug 22, 2019 21:26
[2019-08-22 21:28] LABS: ALBUMIN 3.8 g/dL (3.4-5.0); ALBUMIN/GLOBULIN RATIO 1.1 (1.0-1.7); TOTAL PROTEIN 7.3 g/dL (6.4-8.2)
[2019-08-22 21:31] VITALS: BP 98/74
[2019-08-22] MEDS ORDERED: cefTRIAXone IV Push 1 GM VIAL. IVP ONE (22:15)
[2019-08-22] MEDS ORDERED: CEPH-264 PO (22:15)
== END 2019-08-22 22:17 | disposition home or self-care (01) ==
LOC: ER 20:09
DX: N39.0 Urinary tract infection, site not specified (principal); F41.9 Anxiety disorder, unspecified; Z76.5 Malingerer [conscious simulation]; F12.10 Cannabis abuse, uncomplicated; F14.10 Cocaine abuse, uncomplicated; F32.9 Major depressive disorder, single episode, unspecified; I10 Essential (primary) hypertension; Z87.442 Personal history of urinary calculi; Z87.440 Personal history of urinary (tract) infections; F43.10 Post-traumatic stress disorder, unspecified; Z90.49 Acquired absence of other specified parts of digestive tract; Z90.89 Acquired absence of other organs; Z88.1 Allergy status to other antibiotic agents; Z88.5 Allergy status to narcotic agent; Z88.8 Allergy status to other drugs, medicaments and biological substances
CPT/HCPCS: 36415; 80053; 80307; 81001; 81025; 83690; 85025; 87086; 96361; 96374; 99284; J2405; J7030

== ENCOUNTER 2020-11-16 11:45 | Emergency (ER) | payer MEDICAID ==
[~2020-11-16] VITALS: Ht 162.6 cm; Wt 65.9 kg
[~2020-11-16 11:45] MED LIST changes: +CEPH-264 PO; +FLUO20CA20 PO; -FLUO20CA8 PO; -VALA1000 PO; +VALA10008 PO
[2020-11-16 12:12] LABS: BILIRUBIN,URINE NEGATIVE (NEG); CLARITY,URINE CLEAR; COLOR,URINE AMBER; NITRITE,URINE NEGATIVE (NEG); PH,URINE 5.5 (<5.0-8.0); PROTEIN,URINE NEGATIVE (NEG-TRACE); UROBILINOGEN,URINE 0.2 mg/dL (0.2 mg/dL)
[2020-11-16 12:26] LABS: BACTERIA,URINE 0 /HPF (0-FEW); RBC,URINE >40 /HPF (0-2)
[2020-11-16] MEDS ORDERED: IV NORMAL SALINE 1000ML BAG 1,000 ML IV ONE (12:30)
[2020-11-16] MEDS ORDERED: ONDANSETRON PF 4 MG/2 ML VIAL. IV ONE (12:30)
[2020-11-16] MEDS ORDERED: KETOROLAC 30 MG/ML VIAL. IV ONE (12:30)
[2020-11-16 12:32] LABS: BASO % 1 % (0-3); EOS # 0.2 x10^3/uL (0.0-0.7); EOS % 3 % (0-3); HEMATOCRIT 41.1 % (36.0-47.0); LYMPH # 1.8 x10^3/uL (1.0-4.8); LYMPH % 34 % (24-48); MEAN CORPUSCULAR HEMOGLOBIN 31 pg (25-35); MEAN CORPUSCULAR HGB CONC 34 g/dL (31-37); MEAN CORPUSCULAR VOLUME 91 fL (79-100); MONO # 0.5 x10^3/uL (0.0-1.1); MONO % 9 % (0-9); NEUT # 2.7 x10^3/uL (1.8-7.7); NEUT % 53 % (31-73); PLATELET COUNT 150 x10^3/uL (140-400); RED BLOOD COUNT 4.53 x10^6/uL (3.50-5.40); RED CELL DISTRIBUTION WIDTH 13.4 % (11.5-14.5); WHITE BLOOD COUNT 5.2 x10^3/uL (4.0-11.0)
[2020-11-16 12:41] LABS: CALCIUM 8.6 mg/dL (8.5-10.1); CREATININE 0.7 mg/dL (0.6-1.0); GFR 94.2; POTASSIUM 3.7 mmol/L (3.5-5.1)
[2020-11-16 12:47] LABS: ALBUMIN 3.6 g/dL (3.4-5.0); ALBUMIN/GLOBULIN RATIO 1.1 (1.0-1.7); MAGNESIUM 2.2 mg/dL (1.8-2.4); TOTAL BILIRUBIN 0.6 mg/dL (0.2-1.0); TOTAL PROTEIN 6.8 g/dL (6.4-8.2)
--- NOTE | 2020-11-16 13:19 | RAD ---
INDICATION: Reason: L flank pain, hematuria / Spl. Instructions: / History: . COMPARISON: January 2019 TECHNIQUE: Axial CT images obtained through the abdomen and pelvis without contrast. One or more of the following individualized dose reduction techniques were utilized for this examinat ion: 1. Automated exposure control; 2. Adjustment of the mA and/or kV according to patient size; 3 . Use of iterative reconstruction technique. FINDINGS: Abdominal aorta is not aneurysmal. No intrahepatic bile duct dilation. Postcholecystectomy changes. Limited assessment of the pancreas without contrast. There is some distention of the proximal duodenum with some tortuosity of the duodenum as well as pro minent wall at the distal duodenum to jejunum region. Spleen unremarkable. No left-sided hydronephrosis. There is a couple of tiny nonobstructive left renal stones. Urinary laura dder has minimal urine within at time of exam. Right renal stone without hydronephrosis. Colonic diverticulosis. Postoperative changes right lower quadrant could be from post appendectomy. There is some degenerative changes the spine. There is a couple of small bowel loops appear prominent measuring up to about 25 mm without high-grad e transition point to suggest obstruction IMPRESSION: * Bilateral renal stones are identified without hydronephrosis. * Mild distention of the duodenum with prominence of the wall distal duodenum and jejunum. Could be from phase of peristalsis but would correlate with symptoms in the region to ensure there is not a pa thologic process such as duodenitis Electronically signed by: Robert Cunha MD (11/16/2020 1:16 PM) [id number]
[2020-11-16] MEDS ORDERED: fentaNYL PF VIAL 100 MCG/2 ML VIAL IV ONE (14:00)
[2020-11-16] MEDS ORDERED: ORPHENADRINE CITRATE 60 MG/2 ML VIAL. IM ONE (14:00)
[2020-11-16] MEDS ORDERED: CYCL10TA2 PO (14:03)
--- NOTE | 2020-11-16 14:03 | ED.ADGEN ---
Past Medical History Past Medical History: Anxiety, Depression, Hypotension, Kidney Stone, UTI, Other Additional Past Medical Histor: CROHNS, PTSD, insomnia Past Surgical History: Appendectomy, Cholecystectomy, Tonsillectomy, Other Additional Past Surgical Histo: EGD; colonoscopy, Abdominal bypass, sinus, D&C, adenoidectomy Smoking Status: Never Smoker Alcohol Use: Occasionally Drug Use: Marijuana General Adult EDM: Chief Complaint: FLANK PAIN HPI: HPI: Patient is a 39 year old female who presents the emergency department today with complaints of left flank pain for the last 2 days. She denies any dysuria, increased urinary frequency, hematuria, or difficulty voiding. She reports that she gets frequent urinary tract infections frequently and is concerned that she may have a urinary tract infection. She denies any abnormal vaginal bleeding or vaginal discharge. She reports that the pain is in both sides of her low back but worse in the left flank. She also complains of some nausea but denies any vomiting, diarrhea, or constipation. She also denies any fever, cough, body aches, or fatigue. She currently rates her pain 9 out of 10 on the pain scale, she denies any alleviating factors, the pain is worse with movement. She denies any recent heavy lifting, or injury. She states she does do a lot of lifting and bending at work but denies any known injury. Review of Systems: Review of Systems: Complete ROS is negative unless otherwise noted in HPI. Current Medications: Current Medications Medications (Trade) Dose Ordered Sig/[facility] Start Time Stop Time Status Last Admin Dose Admin Fentanyl Citrate (Fentanyl 2ml Vial) 50 mcg 1X ONCE 11/16/20 14:00 11/16/20 14:11/16/20 13:50 50 MCG Ketorolac Tromethamine (Toradol 30mg Vial) 30 mg 1X ONCE 11/16/20 12:30 11/16/20 12:31 DC 11/16/20 12:58 30 MG Ondansetron HCl (Zofran) 4 mg 1X ONCE 11/16/20 12:30 11/16/20 12:31 DC 11/16/20 12:58 4 MG Orphenadrine Citrate (Norflex) 60 mg 1X ONCE 11/16/20 14:00 11/16/20 14:01 11/16/20 13:50 60 MG Sodium Chloride 1,000 ml @ 1,000 mls/hr 1X ONCE 11/16/20 12:30 11/16/20 13:29 DC 11/16/20 12:57 1,000 MLS/HR Allergies: Allergies: Allergies Coded Allergies Type Severity Reaction Last Updated Verified erythromycin base Allergy Intermediate Nausea and Vomiting 12/22/14 Yes metoclopramide Allergy Intermediate 11/16/20 Yes morphine Allergy Intermediate "rash" but tolerates hydromorphone 01/29/15 Yes Physical Exam: PE: See Above Constitutional: Well developed, well nourished, no acute distress, non-toxic appearance. [] HENT: Normocephalic, atraumatic, bilateral external ears normal, nose normal. [] Eyes: PERRLA, EOMI, conjunctiva normal, no discharge. [] Neck: Normal range of motion, no stridor. [] Cardiovascular:Heart rate regular rhythm Lungs & Thorax: Respirations even and unlabored, no retractions, no respiratory distress Abdomen: soft, no tenderness, no palpable mass Back: Left CVA tenderness Skin: Warm, dry, no erythema, no rash. [] Extremities: No cyanosis, ROM intact, no edema. [] Neurologic: Alert and oriented X 3, no focal deficits noted. [] Psychologic: Affect normal, judgement normal, mood normal. [] Current Patient Data: Labs: Laboratory Tests Test 11/16/20 11:50 11/16/20 11:55 11/16/20 12:15 Urine Collection Type Unknown Urine Color Pam Urine Clarity Clear Urine pH 5.5 (<5.0-8.0) Urine Specific [place] 1.025 (1.000-1.030) Urine Protein Negative mg/dL (NEG-TRACE) Urine Glucose (UA) Negative mg/dL (NEG) Urine Ketones (Stick) Negative mg/dL (NEG) Urine Blood Large (NEG) Urine Nitrite Negative (NEG) Urine Bilirubin Negative (NEG) Urine Urobilinogen Dipstick 0.2 mg/dL (0.2 mg/dL) Urine Leukocyte Esterase Negative (NEG) Urine RBC >40 /HPF (0-2) Urine WBC 1-4 /HPF (0-4) Urine Squamous Epithelial Cells Mod /LPF Urine Bacteria 0 /HPF (0-FEW) Urine Mucus Mod /LPF POC Urine HCG, Qualitative Hcg negative (Negative) White Blood Count 5.2 x10^3/uL (4.0-11.0) Red Blood Count 4.53 x10^6/uL (3.50-5.40) Hemoglobin 14.0 g/dL (12.0-15.5) Hematocrit 41.1 % (36.0-47.0) Mean Corpuscular Volume 91 fL (79-100) Mean Corpuscular Hemoglobin 31 pg (25-35) Mean Corpuscular Hemoglobin Concent 34 g/dL (31-37) Red Cell Distribution Width 13.4 % (11.5-14.5) Platelet Count 150 x10^3/uL (140-400) Neutrophils (%) (Auto) 53 % (31-73) Lymphocytes (%) (Auto) 34 % (24-48) Monocytes (%) (Auto) 9 % (0-9) Eosinophils (%) (Auto) 3 % (0-3) Basophils (%) (Auto) 1 % (0-3) Neutrophils # (Auto) 2.7 x10^3/uL (1.8-7.7) Lymphocytes # (Auto) 1.8 x10^3/uL (1.0-4.8) Monocytes # (Auto) 0.5 x10^3/uL (0.0-1.1) Eosinophils # (Auto) 0.2 x10^3/uL (0.0-0.7) Basophils # (Auto) 0.0 x10^3/uL (0.0-0.2) Sodium Level 139 mmol/L (136-145) Potassium Level 3.7 mmol/L (3.5-5.1) Chloride Level 105 mmol/L (98-107) Carbon Dioxide Level 26 mmol/L (21-32) Anion Gap 8 (6-14) Blood Urea Nitrogen 12 mg/dL (7-20) Creatinine 0.7 mg/dL (0.6-1.0) Estimated GFR (Cockcroft-Gault) 94.2 BUN/Creatinine Ratio 17 (6-20) Glucose Level 96 mg/dL (70-99) Calcium Level 8.6 mg/dL (8.5-10.1) Magnesium Level 2.2 mg/dL (1.8-2.4) Total Bilirubin 0.6 mg/dL (0.2-1.0) Aspartate Amino Transferase (AST) 15 U/L (15-37) Alanine Aminotransferase (ALT) 25 U/L (14-59) Alkaline Phosphatase 49 U/L (46-116) Total Protein 6.8 g/dL (6.4-8.2) Albumin 3.6 g/dL (3.4-5.0) Albumin/Globulin Ratio 1.1 (1.0-1.7) Lipase 79 U/L (73-393) Laboratory Tests 11/16/20 12:15 Laboratory Tests 11/16/20 12:15 Vital Signs: Vital Signs Date Time Temp Pulse Resp B/P (MAP) Pulse Ox O2 Delivery O2 Flow Rate FiO2 11/16/20 13:50 20 97 Room Air 11/16/20 11:55 98.5 66 132/73 (92) 98.5 EKG: EKG: [] Heart Score: Risk Factors: Risk Factors: DM, Current or recent (<one month) smoker, HTN, HLP, family history of CAD, obesity. Risk Scores: Score 0 - 3: 2.5% MACE over next 6 weeks - Discharge Home Score 4 - 6: 20.3% MACE over next 6 weeks - Admit for Clinical Observation Score 7 - 10: 72.7% MACE over next 6 weeks - Early Invasive Strategies Radiology/Procedures: Radiology/Procedures: PROCEDURE: CT ABDOMEN PELVIS WO CONTRAST INDICATION: Reason: L flank pain, hematuria / Spl. Instructions: / History: . COMPARISON: January 2019 TECHNIQUE: Axial CT images obtained through the abdomen and pelvis without contrast. One or more of the following individualized dose reduction techniques were u tilized for this examination: 1. Automated exposure control; 2. Adjustment of the mA and/or kV according to patient size; 3. Use of iterative reconstruction technique. FINDINGS: Abdominal aorta is not aneurysmal. No intrahepatic bile duct dilation. Postcholecystectomy changes. Limited assessment of the pancreas without contrast. There is some distention of the proximal duodenum with some tortuosity of the duodenum as well as prominent wall at the distal duodenum to jejunum region. Spleen unremarkable. No left-sided hydronephrosis. There is a couple of tiny nonobstructive left renal stones. Urinary bladder has minimal urine within at time of exam. Right renal stone without hydronephrosis. Colonic diverticulosis. Postoperative changes right lower quadrant could be from post appendectomy. There is some degenerative changes the spine. There is a couple of small bowel loops appear prominent measuring up to about 25 mm without high-grade transition point to suggest obstruction IMPRESSION: * Bilateral renal stones are identified without hydronephrosis. * Mild distention of the duodenum with prominence of the wall distal duodenum and jejunum. Could be from phase of peristalsis but would correlate with symptoms in the region to ensure there is not a pathologic process such as du odenitis [] Course & Med Decision Making: Course & Med Decision Making Pertinent Labs and Imaging studies reviewed. (See chart for details) 39-year-old female presents emergency department for left flank pain CT abdomen pelvis revealed no acute findings, there were renal stones present but no hydronephrosis. CBC, CMP were unremarkable. UA revealed greater than 40 red blood cells, 1-4 white blood cells, and no bacteria patient reports she recently had her menstru al cycle last week. I discussed these results with the patient. I advised that I have a low suspici on for this to be related to a urinary tract infection, there is a possibility that she may have passed a kidney stone and that is what caused her pain but there is no evidence of complication from a kidney stone. Since the pain is worse with movement it might be due to muscle strain. Plan to write prescription for Flexeril, have patient follow-up with primary care doctor next week for reevaluation, return to the ER if symptoms worsen or fever develops. Patient states that she has Zofran at home denies need for prescription for Zofran. Patient verbalized an understanding of home care, medications, follow-up, and return to ED instructions and was in agreement with the plan of care. [] Kun Disclaimer: Kun Disclaimer: This electronic medical record was generated, in whole or in part, using a voice recognition dictation system. Departure Departure Impression: Primary Impression: Acute flank pain Disposition: 01 DC HOME SELF CARE/HOMELESS Condition: STABLE Referrals: YARELI MORSE MD (PCP) Patient Instructions: Flank Pain, [id number] Additional Instructions: Fill the prescription and use it as directed. Apply heat or ice to the sore area as needed for comfort. Increase clear fluids avoid bladder irritants such as carbonation, caffeine, and spicy foods. Follow-up with your primary care doctor next week for reevaluation, return to the ER if your symptoms worsen or fever develops. Scripts Cyclobenzaprine Hcl (CYCLOBENZAPRINE HCL) 10 Mg Tablet 1 TAB PO TID PRN for MUSCLE PAIN for 10 Days, #30 TAB 0 Refills Prov: DELORIS REINA APRN 11/16/20 DELORIS REINA APRN Nov 16, 2020 14:03
[2020-11-16 14:29] VITALS: BP 106/55
== END 2020-11-16 14:37 | disposition home or self-care (01) ==
LOC: ER 11:45
DX: R10.9 Unspecified abdominal pain (principal); M54.5 Low back pain; R11.0 Nausea; Z87.442 Personal history of urinary calculi; Z87.440 Personal history of urinary (tract) infections; Z90.89 Acquired absence of other organs; Z90.49 Acquired absence of other specified parts of digestive tract
CPT/HCPCS: 36415; 74176; 80053; 81001; 81025; 83690; 83735; 85025; 96361; 96372; 96374; 96375; 99285; J1885; J2360; J2405; J3010; J7030

== ENCOUNTER 2021-03-08 20:48 | Emergency (ER) | payer MEDICAID ==
[~2021-03-08] VITALS: Ht 165.1 cm; Wt 65.9 kg
[~2021-03-08 20:48] MED LIST changes: +CYCL10TA2 PO
[2021-03-08 21:17] VITALS: BP 140/65
--- NOTE | 2021-03-08 21:28 | PHYS DOC ---
Past Medical History Past Medical History: No Pertinent History Additional Past Medical Histor: CROHNS, PTSD, insomnia Past Surgical History: No Surgical History Additional Past Surgical Histo: EGD; colonoscopy, Abdominal bypass, sinus, D&C, adenoidectomy Smoking Status: Never Smoker Alcohol Use: Occasionally Drug Use: Marijuana General Adult EDM: Chief Complaint: ABDOMINAL PAIN HPI: HPI: Patient is a 40 year old female past medical history of gastroparesis presents with a chief complaint of abdominal pain associated with nausea and vomiting. Patient states nausea and vomiting started Thursday it has progressed to become worse since onset. Patient states abdominal pain started yesterday. Patient's abdominal pain is primarily epigastric left upper quadrant. Patient states pain is similar to previous pancreatitis episodes. Review of Systems: Review of Systems: Review of systems: Constitutional symptoms- No fever, no chills. Eyes- No Discharge, No Visual Loss Respiratory symptoms- No shortness of breath, No wheezing, No Dyspnea on Exertion Cardiovascular Systems; No chest pain, No Palpitations, No syncope Gastrointestinal symptoms: Positive abdominal pain, Positive nausea, Positive vomiting NO diarrhea. Genitourinary symptoms: No dysuria. Musculoskeletal symptoms: No back pain No extremity pain. NEUROLOGICAL Symptoms: No headache, no generalized weakness; No focal Weakness Heart Score: C/O Chest Pain: N/A Risk Factors: Risk Factors: DM, Current or recent (<one month) smoker, HTN, HLP, family history of CAD, obesity. Risk Scores: Score 0 - 3: 2.5% MACE over next 6 weeks - Discharge Home Score 4 - 6: 20.3% MACE over next 6 weeks - Admit for Clinical Observation Score 7 - 10: 72.7% MACE over next 6 weeks - Early Invasive Strategies Allergies: Allergies: Allergies Coded Allergies Type Severity Reaction Last Updated Verified erythromycin base Allergy Intermediate Nausea and Vomiting 12/22/14 Yes metoclopramide Allergy Intermediate 11/16/20 Yes morphine Allergy Intermediate "rash" but tolerates hydromorphone 01/29/15 Yes Physical Exam: PE: General: alert, no acute distress. Skin: warm, dry and intact. Head:: Normocephalic, atraumatic. Neck: Trachea midline. Eyes: EOMI, Normal conjunctiva, No drainage CARDIOVASCULAR: Regular rate and rhythm RESPIRATORY: No respiratory distress Back: Full range of motion. MUSCULOSKELETAL: Full range of motion of bilateral upper and lower extremities. GASTROINTESTINAL: Abdomen soft without rebound or guarding Tenderness to palpation LUQ NEUROLOGICAL: Alert and noted to person, place and time. No neurological deficits observed Psychiatric: Cooperative. Normal judgment anxious Current Patient Data: Vital Signs: Vital Signs Date Time Temp Pulse Resp B/P (MAP) Pulse Ox O2 Delivery O2 Flow Rate FiO2 03/08/21 21:17 98.1 74 16 140/65 (90) 98 Room Air 98.1 EKG: EKG: [] Radiology/Procedures: Radiology/Procedures: [] Impression: FINDINGS: Partially visualized heart and lungs unremarkable. Mild biliary ductal prominence status post cholecystectomy, similar to prior study. Liver, pancreas, spleen, and adrenal glands unremarkable. Nonobstructive calculus in the lower pole the right kidney, similar to prior study. Previously noted left renal calculus is not definitively visualized on this exam. Multiple tiny hypodensities in the bilateral kidneys, too small adequately characterize but likely benign. Decompressed urinary bladder suboptimally evaluated. Uterus and adnexa unremarkable. No bowel dilation or definite wall thickening. Appendectomy. No abdominal aortic or iliac artery aneurysm. No evidence of acute osseous abnormality. IMPRESSION: No evidence of acute abdominopelvic abnormality. Nonobstructive right renal calculus. Course & Med Decision Making: Course & Med Decision Making Pertinent Labs and Imaging studies reviewed. (See chart for details) [] Patient treated multiple times with multiple pain medicines initially with fentanyl then subsequently Dilaudid. Post treatment patient states pain is minimally improved but she states she feels comfortable to go home. I reviewed all labs and CT imaging with patient and mother. Patient will be discharged home on Zofran and hydrocodone. Patient stated hydrocodone doesnt work-- prescribed ultram. Nurse gave patient both Rx for hydrocodone and Ultram in addition to zofran. Luison Disclaimer: Kun Disclaimer: This electronic medical record was generated, in whole or in part, using a voice recognition dictation system. Departure Departure Impression: Primary Impression: Abdominal pain Additional Impression: Pancreatitis Disposition: HOME / SELF CARE / HOMELESS Condition: STABLE Referrals: YARELI MORSE MD (PCP) Patient Instructions: Acute Pancreatitis Scripts Tramadol Hcl (ULTRAM) 50 Mg Tablet 1 TAB PO PRN Q6HRS PRN for pain MDD 4 Tablet(s) for 7 Days, #28 TAB 0 Refills Prov: KARINE BARRIGA I DO 03/08/21 Hydrocodone Bit/Acetaminophen (HYDROCODONE-APAP 5-325 ) 1 Tab Tablet 1 TAB PO PRN Q6HRS PRN for PAIN, #20 TAB 0 Refills Prov: KARINE BARRIGA DO 03/08/21 Ondansetron Hcl (ZOFRAN) 4 Mg Tablet 1 TAB PO Q6HRS, #20 TAB Prov: KARINE BARRIGA DO 03/08/21 KARINE BARRIGA I DO March 08, 2021 21:28
[2021-03-08 21:33] LABS: BASO # 0.1 x10^3/uL (0.0-0.2); BASO % 1 % (0-3); EOS # 0.3 x10^3/uL (0.0-0.7); EOS % 4 % (0-3); HEMATOCRIT 42.8 % (36.0-47.0); HEMOGLOBIN 14.7 g/dL (12.0-15.5); LYMPH # 2.7 x10^3/uL (1.0-4.8); LYMPH % 31 % (24-48); MEAN CORPUSCULAR HEMOGLOBIN 32 pg (25-35); MEAN CORPUSCULAR HGB CONC 34 g/dL (31-37); MEAN CORPUSCULAR VOLUME 92 fL (79-100); MONO # 0.6 x10^3/uL (0.0-1.1); MONO % 7 % (0-9); NEUT % 58 % (31-73); PLATELET COUNT 165 x10^3/uL (140-400); RED BLOOD COUNT 4.66 x10^6/uL (3.50-5.40); RED CELL DISTRIBUTION WIDTH 13.1 % (11.5-14.5); WHITE BLOOD COUNT 8.6 x10^3/uL (4.0-11.0)
[2021-03-08 21:57] LABS: CALCIUM 8.4 mg/dL (8.5-10.1); CREATININE 0.9 mg/dL (0.6-1.0); GFR 70.1
[2021-03-08] MEDS ORDERED: fentaNYL PF VIAL 100 MCG/2 ML VIAL IVP ONE (22:00)
[2021-03-08] MEDS ORDERED: ONDANSETRON PF 4 MG/2 ML VIAL. IVP ONE (22:00)
[2021-03-08 22:04] LABS: ALBUMIN 4.1 g/dL (3.4-5.0); ALBUMIN/GLOBULIN RATIO 1.3 (1.0-1.7); TOTAL BILIRUBIN 0.4 mg/dL (0.2-1.0); TOTAL PROTEIN 7.3 g/dL (6.4-8.2)
[2021-03-08 22:09] LABS: BILIRUBIN,URINE NEGATIVE (NEG); CLARITY,URINE CLEAR; COLOR,URINE YELLOW; NITRITE,URINE NEGATIVE (NEG); PH,URINE 5.5 (<5.0-8.0); PROTEIN,URINE NEGATIVE (NEG-TRACE); UROBILINOGEN,URINE 0.2 mg/dL (0.2 mg/dL)
[2021-03-08 22:15] LABS: BACTERIA,URINE FEW /HPF (0-FEW)
[2021-03-08 22:16] LABS: RBC,URINE OCC /HPF (0-2)
[2021-03-08] MEDS ORDERED: HYDROmorphone 2 MG/ML VIAL IVP ONE ×3 (22:30→23:45)
--- NOTE | 2021-03-08 22:45 | RAD ---
EXAMINATION: CT ABDOMEN+PELVIS W (CT ABDOMEN/PELVIS WITH IV CONTRAST) CLINICAL HISTORY: Abdominal pain. History of cholecystectomy and appendectomy. TECHNIQUE: CT of the abdomen and pelvis was performed using standard technique, scanning from just ab ove the dome of the diaphragm to the symphysis pubis following administration of intravenous contrast . CT Dose Reduction Employed: One or more of the following individualized dose reduction techniques wer e utilized for this examination: 1. Automated exposure control 2. Adjustment of the mA and/or kV ac cording to patient size 3. Use of iterative reconstruction technique. COMPARISON: 11/16/2020 FINDINGS: Partially visualized heart and lungs unremarkable. Mild biliary ductal prominence status post cholecystectomy, similar to prior study. Liver, pancreas, spleen, and adrenal glands unremarkable. Nonobstructive calculus in the lower pole the right kidney, similar to prior study. Previously noted left renal calculus is not definitively visualized on this exam. Multiple tiny hypodensities in the b ilateral kidneys, too small adequately characterize but likely benign. Decompressed urinary bladder suboptimally evaluated. Uterus and adnexa unremarkable. No bowel dilation or definite wall thickening. Appendectomy. No abdominal aortic or iliac artery aneurysm. No evidence of acute osseous abnormality. IMPRESSION: No evidence of acute abdominopelvic abnormality. Nonobstructive right renal calculus. Electronically signed by: Wilfrido Chávez DO (03/08/2021 10:43 PM) [facility]
[2021-03-08] MEDS ORDERED: CONTRAST GIVEN. MC PRN (23:00)
[2021-03-08] MEDS ORDERED: IOHEXOL 300 MG/ML 100ML VIAL. IV ONE (23:00)
[2021-03-08] MEDS ORDERED: HYDR-2761 PO (23:33)
[2021-03-08] MEDS ORDERED: ONDA4TAB7 PO (23:33)
[2021-03-08] MEDS ORDERED: diphenhydrAMINE HCL 25 MG CAPSULE PO ONE (23:45)
[2021-03-08] MEDS ORDERED: TRAM-48 PO (23:48)
[2021-03-10] MEDS ORDERED: OXYC-325 PO (20:15)
[2021-03-10] MEDS ORDERED: PROC10TA57 PO (20:15)
== END 2021-03-09 | disposition home or self-care (01) ==
LOC: ER 20:48
DX: K85.90 Acute pancreatitis without necrosis or infection, unspecified (principal); Z88.1 Allergy status to other antibiotic agents; Z88.5 Allergy status to narcotic agent; Z88.8 Allergy status to other drugs, medicaments and biological substances
CPT/HCPCS: 36415; 74177; 80053; 81001; 81025; 83690; 85025; 96374; 96375; 96376; 99285; J1170; J2405; J3010; Q0163

== ENCOUNTER 2021-03-10 17:07 | Emergency (ER) | payer MEDICAID ==
[~2021-03-10] VITALS: Ht 165.1 cm; Wt 68.0 kg
[~2021-03-10 17:07] MED LIST changes: +HYDR-2761 PO; +TRAM-48 PO
[2021-03-10 18:29] LABS: BASO # 0.1 x10^3/uL (0.0-0.2); BASO % 1 % (0-3); EOS # 0.1 x10^3/uL (0.0-0.7); EOS % 2 % (0-3); HEMATOCRIT 41.7 % (36.0-47.0); HEMOGLOBIN 14.5 g/dL (12.0-15.5); LYMPH % 36 % (24-48); MEAN CORPUSCULAR HEMOGLOBIN 31 pg (25-35); MEAN CORPUSCULAR HGB CONC 35 g/dL (31-37); MEAN CORPUSCULAR VOLUME 90 fL (79-100); MONO # 0.4 x10^3/uL (0.0-1.1); MONO % 6 % (0-9); NEUT % 54 % (31-73); PLATELET COUNT 164 x10^3/uL (140-400); RED BLOOD COUNT 4.63 x10^6/uL (3.50-5.40); RED CELL DISTRIBUTION WIDTH 12.4 % (11.5-14.5); WHITE BLOOD COUNT 5.4 x10^3/uL (4.0-11.0)
[2021-03-10 18:38] LABS: CALCIUM 8.1 mg/dL (8.5-10.1); CREATININE 0.9 mg/dL (0.6-1.0); GFR 70.1; POTASSIUM 3.6 mmol/L (3.5-5.1)
[2021-03-10 18:44] LABS: ALBUMIN 3.9 g/dL (3.4-5.0); ALBUMIN/GLOBULIN RATIO 1.2 (1.0-1.7); TOTAL BILIRUBIN 0.5 mg/dL (0.2-1.0); TOTAL PROTEIN 7.1 g/dL (6.4-8.2)
[2021-03-10] MEDS ORDERED: IV NORMAL SALINE 1000ML BAG 1,000 ML IV ONE (18:45)
[2021-03-10] MEDS ORDERED: ONDANSETRON PF 4 MG/2 ML VIAL. IVP ONE (18:45)
--- NOTE | 2021-03-10 18:52 | PHYS DOC ---
Past Medical History Past Medical History: Depression, Pancreatitis Additional Past Medical Histor: CROHNS, PTSD, insomnia, GASTROPARESIS Past Surgical History: Other Additional Past Surgical Histo: EGD; colonoscopy, Abdominal bypass, sinus, D&C, adenoidectomy Smoking Status: Never Smoker Alcohol Use: Occasionally Additional Information: HAD TWO BEERS 03/05/2021 Drug Use: Marijuana General Adult EDM: Chief Complaint: ABDOMINAL PAIN HPI: HPI: Patient is a 40 year old female past medical history of gastroparesis presents with a chief complaint of abdominal pain associated with nausea and vomiting. Patient states nausea and vomiting started Thursday it has progressed to become worse since onset. Patient states abdominal pain started .. Patient's abdominal pain is primarily epigastric left upper quadrant. Patient states pain is similar to previous pancreatitis episodes. Patient was seen on Thursday-- complete lab and radiologic imaging. CT- no acute process. Labs with a lipase of >800. Patient called ER prior to arrival--- advised to return to ER for re-evaluation. Per staff patient is trying to make herself vomit in the waiting room. Patient periodically moaning out loud-- Patient can be heard down the [place]. Paients vital signs are stable. Labs drown without abnormalities-- except a lipse of 500, which is improved from previous visit. Patient states she has been taking Rx pain and nausea medications with no relief. All lab results reviewed and discussed with patient. Advised plan to change nausea and pain medications. Will treat in the ER with compazine, NS 1L, and fentanyl Review of Systems: Review of Systems: Constitutional: Denies fever or chills. [] Eyes: Denies change in visual acuity. [] HENT: Denies nasal congestion or sore throat. [] Respiratory: Denies cough or shortness of breath. [] Cardiovascular: Denies chest pain or edema. [] GI: positive abdominal pain, positive nausea, positive vomiting, denies bloody stools or diarrhea. [] : Denies dysuria. [] Musculoskeletal: Denies back pain or joint pain. [] Integument: Denies rash. [] Neurologic: Denies headache, focal weakness or sensory changes. [] Endocrine: Denies polyuria or polydipsia. [] Lymphatic: Denies swollen glands. [] Psychiatric: Denies depression or anxiety. [] Heart Score: C/O Chest Pain: N/A Risk Factors: Risk Factors: DM, Current or recent (<one month) smoker, HTN, HLP, family history of CAD, obesity. Risk Scores: Score 0 - 3: 2.5% MACE over next 6 weeks - Discharge Home Score 4 - 6: 20.3% MACE over next 6 weeks - Admit for Clinical Observation Score 7 - 10: 72.7% MACE over next 6 weeks - Early Invasive Strategies Current Medications: Current Medications Medications (Trade) Dose Ordered Sig/Adrianna Start Time Stop Time Status Last Admin Dose Admin Ondansetron HCl (Zofran) 4 mg 1X ONCE 03/10/21 18:45 03/10/21 18:46 DC Sodium Chloride 1,000 ml @ 1,000 mls/hr 1X ONCE 03/10/21 18:45 03/10/21 19:44 Allergies: Allergies: Allergies Coded Allergies Type Severity Reaction Last Updated Verified erythromycin base Allergy Intermediate Nausea and Vomiting 12/22/14 Yes metoclopramide Allergy Intermediate 11/16/20 Yes morphine Allergy Intermediate "rash" but tolerates hydromorphone 01/29/15 Yes Physical Exam: PE: General: alert, no acute distress. Skin: warm, dry and intact. Head:: Normocephalic, atraumatic. Neck: Trachea midline. Eyes: EOMI, Normal conjunctiva, No drainage CARDIOVASCULAR: Regular rate and rhythm RESPIRATORY: No respiratory distress Back: Full range of motion. MUSCULOSKELETAL: Full range of motion of bilateral upper and lower extremities. GASTROINTESTINAL: Abdomen soft without rebound or guarding. Stated pain LUQ/epigastric NEUROLOGICAL: Alert and noted to person, place and time. No neurological deficits observed Psychiatric: Cooperative. Normal judgment Current Patient Data: Labs: Laboratory Tests Test 03/10/21 18:21 White Blood Count 5.4 x10^3/uL (4.0-11.0) Red Blood Count 4.63 x10^6/uL (3.50-5.40) Hemoglobin 14.5 g/dL (12.0-15.5) Hematocrit 41.7 % (36.0-47.0) Mean Corpuscular Volume 90 fL (79-100) Mean Corpuscular Hemoglobin 31 pg (25-35) Mean Corpuscular Hemoglobin Concent 35 g/dL (31-37) Red Cell Distribution Width 12.4 % (11.5-14.5) Platelet Count 164 x10^3/uL (140-400) Neutrophils (%) (Auto) 54 % (31-73) Lymphocytes (%) (Auto) 36 % (24-48) Monocytes (%) (Auto) 6 % (0-9) Eosinophils (%) (Auto) 2 % (0-3) Basophils (%) (Auto) 1 % (0-3) Neutrophils # (Auto) 3.0 x10^3/uL (1.8-7.7) Lymphocytes # (Auto) 2.0 x10^3/uL (1.0-4.8) Monocytes # (Auto) 0.4 x10^3/uL (0.0-1.1) Eosinophils # (Auto) 0.1 x10^3/uL (0.0-0.7) Basophils # (Auto) 0.1 x10^3/uL (0.0-0.2) Sodium Level 140 mmol/L (136-145) Potassium Level 3.6 mmol/L (3.5-5.1) Chloride Level 105 mmol/L (98-107) Carbon Dioxide Level 25 mmol/L (21-32) Anion Gap 10 (6-14) Blood Urea Nitrogen 10 mg/dL (7-20) Creatinine 0.9 mg/dL (0.6-1.0) Estimated GFR (Cockcroft-Gault) 70.1 BUN/Creatinine Ratio 11 (6-20) Glucose Level 91 mg/dL (70-99) Calcium Level 8.1 mg/dL (8.5-10.1) L Total Bilirubin 0.5 mg/dL (0.2-1.0) Aspartate Amino Transferase (AST) 71 U/L (15-37) H Alanine Aminotransferase (ALT) 105 U/L (14-59) H Alkaline Phosphatase 63 U/L (46-116) Total Protein 7.1 g/dL (6.4-8.2) Albumin 3.9 g/dL (3.4-5.0) Albumin/Globulin Ratio 1.2 (1.0-1.7) Lipase 505 U/L (73-393) H Laboratory Tests 03/10/21 18:21 Laboratory Tests 03/10/21 18:21 Vital Signs: Vital Signs Date Time Temp Pulse Resp B/P (MAP) Pulse Ox O2 Delivery O2 Flow Rate FiO2 03/10/21 18:15 97.7 80 22 140/65 (90) 94 Room Air 97.7 EKG: EKG: [] Radiology/Procedures: Radiology/Procedures: [] Course & Med Decision Making: Course & Med Decision Making Pertinent Labs and Imaging studies reviewed. (See chart for details) [] Treated with IV fluids Compazine fentanyl 50x2 All labs reviewed--- lipase improved. Patient's medications will be changed to Compazine and Percocet Patient had no vomiting while in room. Dragon Disclaimer: [employer] Disclaimer: This electronic medical record was generated, in whole or in part, using a voice recognition dictation system. Departure Departure Impression: Primary Impression: Nausea and vomiting Additional Impression: Pancreatitis Condition: STABLE Referrals: YARELI MORSE MD (PCP) Patient Instructions: Acute Pancreatitis Scripts Oxycodone HCl/Acetaminophen (Percocet 5-325 mg Tablet) 1 Each Tablet 1 TAB PO PRN BID PRN for PAIN for 5 Days, #10 TAB 0 Refills Prov: KARINE BARRIGA DO 03/10/21 Prochlorperazine Maleate (Compazine) 10 Mg Tablet 1 TAB PO Q6HRS for 7 Days, #28 TAB 0 Refills Prov: KARINE BARRIGA DO 03/10/21 KARINE BARRIGA DO March 10, 2021 18:52
[2021-03-10] MEDS ORDERED: fentaNYL PF VIAL 100 MCG/2 ML VIAL IVP ONE ×2 (19:00→20:00)
[2021-03-10] MEDS ORDERED: PROCHLORPERAZINE 10 MG/2 ML VIAL. IV ONE (20:00)
[2021-03-10 20:15] VITALS: BP 111/68
[2021-03-10] MEDS ORDERED: PROC10TA57 PO (20:15)
[2021-03-10] MEDS ORDERED: OXYC-325 PO (20:15)
== END 2021-03-10 20:41 | disposition home or self-care (01) ==
LOC: ER 17:07
DX: K85.90 Acute pancreatitis without necrosis or infection, unspecified (principal); R11.2 Nausea with vomiting, unspecified; K50.90 Crohn's disease, unspecified, without complications; Z88.1 Allergy status to other antibiotic agents; Z88.5 Allergy status to narcotic agent; Z88.8 Allergy status to other drugs, medicaments and biological substances
CPT/HCPCS: 36415; 80053; 83690; 85025; 96361; 96374; 96375; 96376; 99284; J0780; J2405; J3010; J7030

== ENCOUNTER 2021-10-09 19:51 | Emergency (ER) | payer MEDICAID ==
[~2021-10-09] VITALS: Ht 162.6 cm; Wt 68.0 kg
[~2021-10-09 19:51] MED LIST changes: -CITA10TA4 PO; +CITA10TA5 PO; -CITA40TA5 PO; +CITA40TA6 PO; +CYCL10TA19 PO; -CYCL10TA2 PO; -FLUO20CA20 PO; +FLUO20CA22 PO; +OXYC-325 PO; +PROC10TA57 PO
[2021-10-09] MEDS ORDERED: IV NORMAL SALINE 1000ML BAG 1,000 ML IV ONE (20:30)
--- NOTE | 2021-10-09 20:33 | PHYS DOC ---
Past Medical History Past Medical History: Depression, Pancreatitis, UTI Additional Past Medical Histor: CROHNS, PTSD, insomnia, GASTROPARESIS Past Surgical History: Other Additional Past Surgical Histo: EGD; colonoscopy, Abdominal bypass, sinus, D&C, adenoidectomy Smoking Status: Never Smoker Alcohol Use: Occasionally Drug Use: Marijuana General Adult EDM: Chief Complaint: ABDOMINAL PAIN HPI: HPI: Patient is a 40-year-old female that presents today with back pain, fever, and painful urination. Patient states that her symptoms started around September 30, she was seen at [facility] at the [facility] location and was diagnosed with a urinary tract infection was given Cefpodoxime, and was told to follow-up with her primary care physician. Patient states that today [facility] called with her culture results and stated that she had Klebsiella pneumoniae in her urine and she should seek out medical care for IV antibiotics. Patient states she continues to have a fever increased pain and increased abdo nahum pain over the last couple of days. She said that when she first got her prescription for antibiotic she took 3 of them a day for couple days so she is currently out of her antibiotics. Patient does have a history of bowel disorders such as Crohn's and gastroparesis, and so she has having increased abdominal pain related to that as well. Review of Systems: Review of Systems: Constitutional: fever or chills. [] Eyes: Denies change in visual acuity. [] HENT: Denies nasal congestion or sore throat. [] Respiratory: Denies cough or shortness of breath. [] Cardiovascular: Denies chest pain or edema. [] GI: abdominal pain; denies nausea, vomiting, bloody stools or diarrhea. [] : dysuria. [] Musculoskeletal: back pain; denies joint pain. [] Integument: Denies rash. [] Neurologic: Denies headache, focal weakness or sensory changes. [] Endocrine: Denies polyuria or polydipsia. [] Lymphatic: Denies swollen glands. [] Psychiatric: Denies depression or anxiety. [] Heart Score: C/O Chest Pain: N/A Risk Factors: Risk Factors: DM, Current or recent (<one month) smoker, HTN, HLP, family history of CAD, obesity. Risk Scores: Score 0 - 3: 2.5% MACE over next 6 weeks - Discharge Home Score 4 - 6: 20.3% MACE over next 6 weeks - Admit for Clinical Observation Score 7 - 10: 72.7% MACE over next 6 weeks - Early Invasive Strategies Current Medications: Cefpodoxime 200mg started on 10/02/2021 Allergies: Allergies: Allergies Coded Allergies Type Severity Reaction Last Updated Verified erythromycin base Allergy Intermediate Nausea and Vomiting 12/22/14 Yes metoclopramide Allergy Intermediate 11/16/20 Yes morphine Allergy Intermediate "rash" but tolerates hydromorphone 01/29/15 Yes Physical Exam: PE: Constitutional: Well developed, well nourished, acute distress, non-toxic appearance. [] HENT: Normocephalic, atraumatic, bilateral external ears normal, oropharynx moist, no oral exudates, nose normal. [] Eyes: PERRLA, EOMI, conjunctiva normal, no discharge. [] Neck: Normal range of motion, no tenderness, supple, no stridor. [] Cardiovascular:Heart rate regular rhythm, no murmur [] Lungs & Thorax: Bilateral breath sounds clear to auscultation [] Abdomen: Bowel sounds normal, tenderness with palpation Skin: Warm, dry, no erythema, no rash. [] Back: CVA tenderness noted. [] Extremities: No tenderness, no cyanosis, no clubbing, ROM intact, no edema. [] Neurologic: Alert and oriented X 3, normal motor function, normal sensory function, no focal deficits noted. [] Psychologic: Affect normal, judgement normal, mood normal. [] Current Patient Data: Labs: Laboratory Tests Test 10/09/21 20:06 10/09/21 20:45 10/09/21 21:10 10/09/21 21:43 Urine Collection Type Unknown Urine Color Yellow Urine Clarity Clear Urine pH 6.5 Urine Specific Arco 1.020 Urine Protein Negative mg/dL Urine Glucose (UA) Negative mg/dL Urine Ketones (Stick) Negative mg/dL Urine Blood Negative Urine Nitrite Negative Urine Bilirubin Negative Urine Urobilinogen Dipstick 0.2 mg/dL Urine Leukocyte Esterase Negative Urine RBC Occ /HPF Urine WBC 1-4 /HPF Urine Squamous Epithelial Cells Many /LPF Urine Bacteria Many /HPF Urine Mucus Marked /LPF Bedside Urine HCG, Qualitative Hcg negative White Blood Count 5.9 x10^3/uL Red Blood Count 4.22 x10^6/uL Hemoglobin 13.0 g/dL Hematocrit 38.2 % Mean Corpuscular Volume 91 fL Mean Corpuscular Hemoglobin 31 pg Mean Corpuscular Hemoglobin Concent 34 g/dL Red Cell Distribution Width 13.0 % Platelet Count 136 x10^3/uL Neutrophils (%) (Auto) 46 % Lymphocytes (%) (Auto) 39 % Monocytes (%) (Auto) 10 % Eosinophils (%) (Auto) 5 % Basophils (%) (Auto) 1 % Neutrophils # (Auto) 2.7 x10^3/uL Lymphocytes # (Auto) 2.3 x10^3/uL Monocytes # (Auto) 0.6 x10^3/uL Eosinophils # (Auto) 0.3 x10^3/uL Basophils # (Auto) 0.0 x10^3/uL Sodium Level 138 mmol/L Potassium Level 3.2 mmol/L Chloride Level 103 mmol/L Carbon Dioxide Level 28 mmol/L Anion Gap 7 Blood Urea Nitrogen 11 mg/dL Creatinine 0.6 mg/dL Estimated GFR (Cockcroft-Gault) 111.9 BUN/Creatinine Ratio 18 Glucose Level 86 mg/dL Calcium Level 8.3 mg/dL Total Bilirubin 0.2 mg/dL Aspartate Amino Transf (AST/SGOT) 18 U/L Alanine Aminotransferase (ALT/SGPT) 30 U/L Alkaline Phosphatase 49 U/L Total Protein 6.5 g/dL Albumin 3.2 g/dL Albumin/Globulin Ratio 1.0 Current Medications Medications (Trade) Dose Ordered Sig/Adrianna Route PRN Reason Start Time Stop Time Status Last Admin Dose Admin Sodium Chloride 1,000 ml @ 999 mls/hr 1X ONCE IV 10/09/21 20:30 10/09/21 21:30 DC 10/09/21 21:36 Vital Signs: Vital Signs Date Time Temp Pulse Resp B/P (MAP) Pulse Ox O2 Delivery O2 Flow Rate FiO2 10/09/21 23:01 61 18 113/68 (83) 98 Room Air 10/09/21 20:00 98.1 65 16 114/59 (77) 98 98.1 Vital Signs Date Time Temp Pulse Resp B/P (MAP) Pulse Ox O2 Delivery O2 Flow Rate FiO2 10/09/21 20:00 98.1 65 16 114/59 (77) 98 98.1 EKG: EKG: [] Radiology/Procedures: Radiology/Procedures: [] Course & Med Decision Making: Course & Med Decision Making Pertinent Labs and Imaging studies reviewed. (See chart for details) 2250 spoke to patient and family member at the bedside regarding laboratory results informed her that her urine is clear of any infection there is some contaminants with epithelial cells and white cells, which can be from not wiping front to back before getting samples. Patient states she still continues to have back pain patient does state that she has been told in the past that she had's kidney stones she is wondering if it could be a kidney stone that is causing her pain in her back, I informed her that I am unable to answer that question at this time without having further studies, I did recommend patient seeing a urology for further evaluation of kidney stones. Patient also voiced concern with multiple urinary tract infections in the past as well and did encourage her to follow-up with a urologist or primary care physician for further management. Patient and his family members verbalized understanding of discharge, patient is encouraged to return to the emergency department if she develops fever or any other concerns. Patient is also encouraged to follow-up with her primary care tomorrow for in person appointment next week. Dragon Disclaimer: Dragon Disclaimer: This electronic medical record was generated, in whole or in part, using a voice recognition dictation system. Departure Departure Impression: Primary Impression: Acute flank pain Disposition: HOME / SELF CARE / HOMELESS Condition: STABLE Referrals: YARELI MORSE MD (PCP) Patient Instructions: Flank Pain Additional Instructions: Continue all home medications as previous prescribed Follow-up with Dr. Morse by phone tomorrow for an in person appointment next week. Asked Dr. Morse about a possible referral to a urologist for further management of chronic urinary tract infections Follow-up with Dr. Duran, CAMPUS SAF[employer]Y OFFICER for further concerns with urinary tract infections. Return to the emergency department for increased pain different than your abdominal pain you normally experience, fever, or fiordaliza blood in your urine. JAY GUEVARA RESEARCH MANUFACTURING OPERATOR Oct 09, 2021 20:33
[2021-10-09 21:04] LABS: BILIRUBIN,URINE NEGATIVE (NEG); CLARITY,URINE CLEAR; COLOR,URINE YELLOW; NITRITE,URINE NEGATIVE (NEG); PH,URINE 6.5 (<5.0-8.0); PROTEIN,URINE NEGATIVE (NEG-TRACE); UROBILINOGEN,URINE 0.2 mg/dL (0.2 mg/dL)
[2021-10-09 21:23] LABS: BACTERIA,URINE MANY /HPF (0-FEW); RBC,URINE OCC /HPF (0-2)
[2021-10-09 21:24] LABS: BASO % 1 % (0-3); EOS # 0.3 x10^3/uL (0.0-0.7); EOS % 5 % (0-3); HEMATOCRIT 38.2 % (36.0-47.0); LYMPH # 2.3 x10^3/uL (1.0-4.8); LYMPH % 39 % (24-48); MEAN CORPUSCULAR HEMOGLOBIN 31 pg (25-35); MEAN CORPUSCULAR HGB CONC 34 g/dL (31-37); MEAN CORPUSCULAR VOLUME 91 fL (79-100); MONO # 0.6 x10^3/uL (0.0-1.1); MONO % 10 % (0-9); NEUT # 2.7 x10^3/uL (1.8-7.7); NEUT % 46 % (31-73); PLATELET COUNT 136 x10^3/uL (140-400); RED BLOOD COUNT 4.22 x10^6/uL (3.50-5.40); WHITE BLOOD COUNT 5.9 x10^3/uL (4.0-11.0)
[2021-10-09 22:10] LABS: CALCIUM 8.3 mg/dL (8.5-10.1); CREATININE 0.6 mg/dL (0.6-1.0); GFR 111.9; POTASSIUM 3.2 mmol/L (3.5-5.1)
[2021-10-09 22:14] LABS: ALBUMIN 3.2 g/dL (3.4-5.0); TOTAL BILIRUBIN 0.2 mg/dL (0.2-1.0); TOTAL PROTEIN 6.5 g/dL (6.4-8.2)
[2021-10-09] MEDS ORDERED: KETOROLAC 30 MG/ML VIAL. IVP ONE (22:45)
[2021-10-09 23:01] VITALS: BP 113/68
== END 2021-10-09 23:38 | disposition home or self-care (01) ==
LOC: ER 19:51
DX: R10.9 Unspecified abdominal pain (principal); R50.9 Fever, unspecified; R30.0 Dysuria; K50.90 Crohn's disease, unspecified, without complications; F43.10 Post-traumatic stress disorder, unspecified; Z88.1 Allergy status to other antibiotic agents; Z88.5 Allergy status to narcotic agent
CPT/HCPCS: 36415; 80053; 81001; 81025; 85025; 87086; 96361; 96374; 99283; J1885; J7030; 99284-25

== ENCOUNTER → 2021-11-19 | Outpatient (CLI) | payer MEDICAID ==
--- NOTE | 2021-11-19 17:30 | KCIC ---
Exam Date: 11/19/2021 3:00 PM MRI LEFT LOWER EXTREMITY JOINT WITHOUT Indication: Reason: LEFT KNEE PAIN / Spl. Instructions: / History: Landing injury 10 days ago. Pain is lateral. Probable ACL injury.. TECHNIQUE: Routine multiplanar MR imaging of the knee was performed without contrast. FINDINGS: The medial and lateral menisci are intact and within normal limits for age. There is a complete tear of the anterior cruciate ligament. There is focal marrow edema at the perip maegan of the subchondral medial femoral condyle along the posterior aspect of the medial tibial platea u consistent with bone contusion. Additional bone contusion is seen along the posterior aspect of th e lateral tibial plateau, likely with small nondisplaced impaction fracture. The posterior cruciate ligament, medial collateral ligament, and lateral collateral ligament complex are intact. Patellofemoral extensor mechanism and popliteus tendon are within normal limits. No full thickness chondral defects are identified. There is a small to moderate joint effusion. There is no popliteal cyst. IMPRESSION: Complete tear of the ACL, likely acute. Corresponding bone contusions identified in the medial and l ateral compartments, likely with a small focal nondisplaced impaction fracture involving the posterio r aspect of the lateral tibial plateau. Small to moderate joint effusion noted. Electronically signed by: Constantino Sanford MD (11/19/2021 5:27 PM) [id number]
== END ==
LOC: KCIC MRI 14:52
PROVIDERS: ATTEND Physician Assistant
DX: S83.512A Sprain of anterior cruciate ligament of left knee, initial encounter (principal); S80.12XA Contusion of left lower leg, initial encounter; M25.462 Effusion, left knee; X58.XXXA Exposure to other specified factors, initial encounter; Y93.89 Activity, other specified; Y92.89 Other specified places as the place of occurrence of the external cause; Y99.8 Other external cause status
CPT/HCPCS: 73721

== ENCOUNTER → 2021-12-10 | Outpatient (CLI) | payer MEDICAID ==
[~2021-12-10] MED LIST changes: +ALPR0.25 PO; +DIPH25CA58 PO; +ERYT250C33 PO; +HYDR25TA PO; +IBUP-1060 PO
== END ==
LOC: LAB 10:50
PROVIDERS: ATTEND Orthopaedic Surgery Sports Medicine
DX: Z01.812 Encounter for preprocedural laboratory examination (principal); S83.512A Sprain of anterior cruciate ligament of left knee, initial encounter; Z20.822 Contact with and (suspected) exposure to COVID-19
CPT/HCPCS: U0003

== ENCOUNTER 2021-12-12 09:34 | Day surgery (SDC) | payer MEDICAID ==
[~2021-12-12] VITALS: Ht 162.6 cm; Wt 72.5 kg
[~2021-12-12 09:34] MED LIST changes: +IV RINGERS,LACTATED 1000ML 1,000 ML IV SCH; +MORPHINE SULFATE 2 MG/ML INJ. IVP PRN; +PROCHLORPERAZINE 10 MG/2 ML VIAL. IVP PRN; +fentaNYL PF VIAL 100 MCG/2 ML VIAL IVP PRN
[2021-12-12] MEDS ORDERED: FAMOTIDINE 20 MG/2 ML VIAL IVP ONE (10:15)
[2021-12-12] MEDS ORDERED: BUPIVACAINE-EPI 0.5% 30 ML VIAL KIT. ONE (10:24)
[2021-12-12] MEDS ORDERED: LIDOCAINE 2% PF 5 ML VIAL. ONE (10:37)
[2021-12-12] MEDS ORDERED: fentaNYL PF VIAL 250 MCG/5 ML VIAL ONE (10:37)
[2021-12-12] MEDS ORDERED: PROPOFOL 10 MG/ML (20ML) VIAL. IV ONE (10:37)
[2021-12-12] MEDS ORDERED: MIDAZOLAM HCL/PF 2 MG/2 ML VIAL. ONE ×2 (10:37→13:20)
[2021-12-12] MEDS ORDERED: ONDANSETRON PF 4 MG/2 ML VIAL. ONE ×2 (10:38→15:01)
[2021-12-12] MEDS ORDERED: DEXAMETHASONE SOD PHOS 4 MG/ML VIAL ONE (10:38)
[2021-12-12] MEDS ORDERED: SEVOFLURANE > 120 MINUTES. IH ONE (12:01)
[2021-12-12] MEDS ORDERED: EPINEPHrine VIAL 30 MG/30 ML VIAL ONE (12:14)
[2021-12-12] MEDS ORDERED: HALOPERIDOL LACTATE 5 MG/ML VIAL. ONE (12:24)
[2021-12-12] MEDS ORDERED: OXYC-325 PO (13:18)
[2021-12-12] MEDS: HYDROmorphone 2 MG/ML INJ. IVP PRN ×4 (13:19→14:23)
--- NOTE | 2021-12-12 13:19 | DISCH ---
DISCHARGE INSTRUCTIONS Condition on Discharge Condition on Discharge: Stable Activity After Discharge Activity Instructions for Disc: Activity as tolerated, Other, see below Other activity instructions: no exercise/sports Lifting Instructions after Dis: No heavy lifting Driving Instructions after Dis: Do not drive today Weight Bearing Status after Di: No restrictions Diet after Discharge Diet after Discharge: GI Soft, Regular Diet Texture: Regular Swallowing Supervision: None needed Contacting the DRStuart after DC Call your doctor for: Concerns you may have Follow-Up Follow up with: Christine in 2 wks Treatment/Equipment after DC Adaptive Equipment Issued: None TREY WILSON II, MD Dec 12, 2021 13:19
[2021-12-12] MEDS ORDERED: HYDROmorphone 2 MG/ML INJ. ONE (13:23)
[2021-12-12] MEDS ORDERED: oxyCODONE/APAP 5/325 1 TAB TABLET PO ONE (13:45)
[2021-12-12 14:45] VITALS: BP 120/65
[2021-12-12] MEDS ORDERED: ONDANSETRON PF 4 MG/2 ML VIAL. IVP ONE (15:15)
--- NOTE | 2021-12-16 12:51 | PDOC4 ---
Operative Note Operative Note Date of surgery: 12/12/2021 Surgeon: Rikki Wilson Supervisor Melt House: Aniket Johnson, certified caregiver was necessary to help hold the leg during pertinent certain portions of the procedure, as well as graft prep. Preoperative diagnosis: Left knee ACL tear Postoperative diagnosis: Same Procedure performed: Arthroscopic assisted left knee ACL allograft reconstruction Findings: #1 unremarkable cartilage at all 3 compartments 2. Complete ACL tear 3. She had a healed, less than 1 cm, peripheral talar in the posterior body of the lateral meniscus otherwise menisci were unremarkable 4. No loose bodies 5. 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 Please see my full consult note as an outpatient for further details. We had a discussion of the risks, benefits, and alternatives and she wished to proceed. Description of procedure: Patient was greeted in the preoperative area by myself or the correct extremity was verified and marked. She was taken the operative suite, antibiotics started as she was brought back. Once in the operating room, she underwent successful induction of a general anesthetic after being transferred gently supine to the operating table and secured to bed with all pressure points padded. Examination under anesthesia confirmed positive Promise without endpoint, knee was stable to varus and valgus at 0 and 30 degrees of flexion, positive pivot shift. We then proceeded to place a nonsterile tourniquet and a padded bump laterally at her hip and foot rest to maintain her knee at 90 degrees passively. After accomplishing this, the left lower extremity was prepped and draped in the usual sterile fashion we conducted a standard preoperative timeout. I palpated marked surface anatomy and paulo lines for my anticipated portals and incision. Extremities exsanguinated with an Esmarch and tourniquet insufflated to 250 mmHg. I then incised skin in accordance with my lateral portal, anterolateral, and introduced the blunt art hroscopic trocar followed by the camera in the suprapatellar pouch. I conducted my diagnostic arthroscopy with above-noted findings. Upon entering medial compartment I used a spinal needle to localize this portal and incised skin in accordance with that. I placed a probe and continued on with my diagnostic arthroscopy. Meanwhile, my wardrobe assistant was prepping the peroneus graft on the back table. I then proceeded to take down the remainder of the ACL with combination of shaver and biter. I used an open and curette and shaver to debride the medial wall of the lateral femoral condyle for visualization and marked the ACL footprint with a microfracture awl. I took down from the tibial side as well, taking care to preserve the intrameniscal ligament. I did remove some of the fat pad for visualization. Once the graft was prepped, we placed it under tension with the Endobutton ramirez. We then directed our attention to creating holes, I held the tip guide and after selecting my appropriate starting point referencing the telida footprint and the anterior horn of the lateral meniscus, we advanced a guidepin followed by reamer. I then cleared off the tunnel and we placed the plug and I then placed an [id number] guide and in a hyperflexed position had my wardrobe assistant advanced the Beath pin and then withdraw it fully. I then reposition the camera and anteromedial portal and inspected the telida footprint again, my microfracture wall and the pin site that I just created. I was satisfied with the position of my femoral tunnel placement. After this, we reposition all the instruments for including [id number] guide camera and hyperflexed the knee and advanced the Beath pin out through the lateral cortex. We then drilled for the Endobutton over this and I measured. After measuring, I reposition the leg in a hyperflexed position and the Beath pin and then reamed. I then remove the reamer and used the shaver to remove the bony debris and inspected this tunnel from the anteromedial portal. Because I had concern that I violated the lateral cortex I decided to use the stove bottom worker button at that point. I then secured this to the ACL graft and passed a FiberWire stitch from the anteromedial portal through my femoral tunnel and then out through the tibial tunnel using a loop grasper. I then used this to shuttle the passing stitches from the Endobutton complex and pulled the graft position confirming good toggle and did not diminishment of toggle on backward traction of the graft. I then held back retraction and repeatedly cycled the knee. After this I inspected the position and tunnels and was happy with it. I then secured my graft with an interference screw guided over nitinol wire. After fixing the graft Promise was negative with a solid endpoint. I had placed the camera back into the joint and was happy with the orientation of the graft and noted no impingement. I then performed vigorous repeated aspiration maneuvers with the camera and shaver and suprapatellar pouch to make sure I removed all loose bony debris. After this removed all excess arthroscopic fluid. The tibial tunnel incision was closed with inverted interrupted 2-0 Vicryl for deepe r layers followed by Monocryl for skin. This was 3-0 running Monocryl. Subcuticular. Nylon was used for the portals. Steri-Strips, Xeroform gauze and ABD soft roll and Connor wrap were applied followed by a hinged knee brace at full range of motion. Prior to wound closure all counts correct x2. No complications. Surgery was well-tolerated by the patient. At the conclusion she was awakened and transferred gently supine to the recovery cart and taken to PACU in stable and extubated condition. Postoperative plan is to discharge her home, weight-bear as tolerated. She will follow-up with me in 2 weeks, sooner should problems arise. RIKKI WILSON II, MD Dec 16, 2021 12:51
== END 2021-12-12 15:14 | disposition home or self-care (01) ==
LOC: SURG 09:34
PROVIDERS: ATTEND Orthopaedic Surgery Sports Medicine
DX: S83.512A Sprain of anterior cruciate ligament of left knee, initial encounter (principal); I10 Essential (primary) hypertension; K21.9 Gastro-esophageal reflux disease without esophagitis; F41.9 Anxiety disorder, unspecified; F32.9 Major depressive disorder, single episode, unspecified; Z87.440 Personal history of urinary (tract) infections; Z79.899 Other long term (current) drug therapy; Z98.890 Other specified postprocedural states; Z72.89 Other problems related to lifestyle; Z88.8 Allergy status to other drugs, medicaments and biological substances; X58.XXXA Exposure to other specified factors, initial encounter; Y93.89 Activity, other specified; Y92.89 Other specified places as the place of occurrence of the external cause; Y99.8 Other external cause status
CPT/HCPCS: 29888; 81025; A4930; C1713; C1762; J0171; J0690; J1100; J1170; J1630; J2250; J2405; J2704; J3010; J3490; A4223; A4452

== ENCOUNTER → 2022-01-10 | Outpatient (CLI) | payer MEDICAID ==
[2021-12-12 14:45] VITALS: BP 120/65
[~2022-01-10] MED LIST changes: -IV RINGERS,LACTATED 1000ML 1,000 ML IV SCH; -MORPHINE SULFATE 2 MG/ML INJ. IVP PRN; -PROCHLORPERAZINE 10 MG/2 ML VIAL. IVP PRN; -fentaNYL PF VIAL 100 MCG/2 ML VIAL IVP PRN
--- NOTE | 2022-01-10 15:40 | KCIC ---
EXAM: MRI left KNEE DATE: 01/10/2022 10:15 AM CLINICAL INDICATION: LEFT KNEE PAIN / Spl. Instructions: / History: Fall after recent ACL recon. Pain is worse than before surgery, swelling. COMPARISON: None. TECHNIQUE: Multiplanar, multisequence MRI of the left knee was performed without contrast. FINDINGS: Small knee joint effusion. No Pelaez's cyst. Susceptibility artifact at the lateral gutter, postsurgic al change. Changes of ACL reconstruction are seen. The graft fibers are intact without definite complication. PC L is intact. The MCL, fibular collateral ligament, biceps femoris and IT band are intact. Popliteus is intact. Mil d edema soleus. Extensor mechanism is intact. Borderline patellar tilt likely from joint effusion. Medial meniscus: Intact Lateral meniscus: Intact Mild marrow edema at the posterior aspect of the medial and lateral tibial plateau. No acute fracture or osteonecrosis. IMPRESSION: Changes of ACL reconstruction are seen with intact graft fibers. No MRI findings for ACL insufficienc y. Small knee joint effusion. No Pelaez's cyst. Mild marrow edema posterior tibial plateau, likely contusion. Mild edema soleus likely low-grade strain. Electronically signed by: Paco Acharya MD (01/10/2022 3:38 PM) [id number]
--- NOTE | 2022-01-10 16:00 | KCIC ---
EXAM: MRI left shoulder DATE: 01/10/2022 10:15 AM COMPARISON: None INDICATION: Reason: LEFT SHOULDER PAIN / Spl. Instructions: / History: Recent fall with new pain and LROM in left shoulder. TECHNIQUE: Multiplanar, multisequence MRI of the left shoulder was performed without contrast. FINDINGS: AC joint degenerative changes are seen. No os acromiale. Mild lateral downsloping of the acromion. Trace subacromial subdeltoid bursal edema, bursitis. Shallow partial thickness bursal sided tear of the supraspinatus tendon involving less than 50 percen t tendon thickness, measuring 6 mm in AP dimension with interspersed scar tissue. Rotator cuff muscle signal and bulk is normal. No full-thickness rotator cuff tear. Long head biceps tendon is intact. There is thickening of the inferior joint capsule. No discrete lab ral tear. Articular cartilage is preserved. No acute fracture or osteonecrosis. IMPRESSION: 1. Shallow partial thickness bursal sided tear of the supraspinatus tendon involving less than 50 pe rcent tendon thickness, measuring 6 mm in AP dimension with interspersed scar tissue 2. Thickening of the inferior joint capsule may be seen with adhesive capsulitis. 3. Trace subacromial subdeltoid bursal edema, bursitis. Electronically signed by: Paco Acharya MD (01/10/2022 3:58 PM) [id number]
== END ==
LOC: KCIC MRI 09:42
PROVIDERS: ATTEND Orthopaedic Surgery Sports Medicine
DX: M75.112 Incomplete rotator cuff tear or rupture of left shoulder, not specified as traumatic (principal); M19.012 Primary osteoarthritis, left shoulder; M25.812 Other specified joint disorders, left shoulder; M25.462 Effusion, left knee; R60.0 Localized edema; Z98.890 Other specified postprocedural states
CPT/HCPCS: 73221; 73721